=== PATIENT | male | born 1955 | race Caucasian/White ===

== ENCOUNTER 2024-02-02 10:07 | Outpatient (AMB) | payer MEDICARE, BC, SELFPAY ==
--- NOTE | 2024-02-02 10:27 | HO.NEPHOV_ITS ---
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 Required: No Accompanied by: Self / Same As Patient Allergies aloe vera [From Solarcaine Cool Aloe] Allergy (Verified 02/02/24 10:10) Unknown benzocaine Allergy (Verified 02/02/24 10:10) Swelling etodolac Allergy (Verified 02/02/24 10:10) Itching iodine Allergy (Verified 02/02/24 10:10) Hives lidocaine [From Solarcaine Cool Aloe] Allergy (Verified 02/02/24 10:10) Unknown magnesium Allergy (Verified 02/02/24 10:10) Unknown semaglutide Allergy (Verified 02/02/24 10:10) Unknown aminobenzoate Allergy (Uncoded 02/02/24 10:10) Unknown HPI Comments Details: I had the privilege of seeing Yazan in follow-up of his chronic kidney disease and hypertension. He is a diabetic and his blood sugar control is fair. He has been on Jardiance which he is tolerating well. He had taken hydrochlorothiazide in the past which he has stopped due to intermittent leg cramps and tiredness. He has cut back sodium in the diet and is trying to lose some weight. He had no relapse of renal stone disease, doing pain or hematuria. His mother had ESRD and was on dialysis. He has no chest pain, shortness of breath, proximal nocturnal dyspnea, orthopnea, orthostatic symptoms, joint swellings, sinusitis, epistaxis, hematuria. He does not take any nonsteroidal anti-inflammatory medications and maintains good hydration. He had depression and was getting therapy. His serum creatinine has gone up. [facility] Medical History (Updated 02/02/24 @ 10:53 by Preston San MD) Renal stone Essential (primary) hypertension CKD stage 3a, GFR 45-59 ml/min Surgical History (Updated 02/02/24 @ 10:33 by Mahnaz Nava MA) Status post surgical removal of malignant neoplasm of skin History of cholecystectomy History of left knee replacement Family History (Updated 02/02/24 @ 10:34 by Mahnaz Nava MA) Sister Heart disease Sister Hypertension Mother Diabetes Kidney disease Social History Alcohol intake: current Comment: Rare Patient Tobacco Use Status: Never used Tobacco Physical Exam Const General: comfortable and no acute distress Orientation/consciousness: patient oriented x3 HEENT Head: Yes normocephalic Mouth: Normal oral and palatal mucosa present Eyes EOM: EOMs intact bilaterally Neck Neck: Yes supple Resp Auscultation: clear to auscultation bilaterally Cardio Jugular venous distension: no JVD Rate: regular rate GI Palpation (GI): Soft to palpation Auscultation: normal bowel sounds General: Yes no CVA tenderness Back/Spine/Pelvis Back: no CVA tenderness Skin General skin exam: no rashes or lesions noted Neuro General: patient oriented x3 and moves all extremities Extrem General: Yes no pedal edema Results Reviewed Nephrology Results: No Data to Display Assessment & Plan Assessment & Plan (1) CKD stage 3a, GFR 45-59 ml/min: Code(s): N18.31 - Chronic kidney disease, stage 3a Category: Medical (2) Hypertension: Code(s): I10 - Essential (primary) hypertension Qualifiers: Hypertension type: primary hypertension Qualified Code(s): I10 - E ssential (primary) hypertension (3) Renal calculus: Code(s): N20.0 - Calculus of kidney Category: Medical (4) JACINDA (acute kidney injury): Code(s): N17.9 - Acute kidney failure, unspecified Category: Medical Plan Yazan has CKD. His renal functions are marginally worse . Her JACINDA is likely from tubular injury after ARB while being on Jardaince. I held his Olmesartan for now which I plan to re initiate with time. He is trying to lose the weight and be strict with low-sodium diet .He had no relapse of renal stone disease. His mother had ESRD and was on dialysis. He avoids nonsteroidal anti-inflammatories and maintain good hydration. He will benefit from some weight loss. He is on Jardiance. He is tolerating statins . I did not make any other medication changes today. However follow-up blood work was ordered in 3 months. Appointment given & answered all questions. Orders: Orders Creatinine Today N17.9 - Acute kidney failure, unspecified, N18.31 - Chronic kidney disease, stage 3a, N20.0 - Calculus of kidney Blood Urea Nitrogen Today N17.9 - Acute kidney failure, unspecified, N18.31 - Chronic kidney disease, stage 3a, N20.0 - Calculus of kidney Electrolytes Today N17.9 - Acute kidney failure, unspecified, N18.31 - Chronic kidney disease, stage 3a, N20.0 - Calculus of kidney Coding Level of Care Code Est Pt Level 4 (34319) Diagnoses CKD stage 3a, GFR 45-59 ml/min N18.31 Primary hypertension I10 Hypertension type: primary hypertension Renal calculus N20.0 JACINDA (acute kidney injury) N17.9
[2024-02-02 10:29] VITALS: BP 110/62; PULSE 54; O2SAT 95; BMI 45.1
== END 2024-02-02 10:56 | disposition home or self-care (01) ==
PROVIDERS: Visit Provider Internal Medicine Nephrology
DX: N18.31 Chronic kidney disease, stage 3a (principal); I10 Essential (primary) hypertension; N20.0 Calculus of kidney; N17.9 Acute kidney failure, unspecified
CPT/HCPCS: 99214

== ENCOUNTER → 2024-02-02 10:07 | Outpatient (BNVA) | payer MEDICARE, BC, SELFPAY | PROVIDERS: Visit Provider Internal Medicine Nephrology | DX: N17.9 Acute kidney failure, unspecified (principal); I12.9 Hypertensive chronic kidney disease with stage 1 through stage 4 chronic kidney disease, or unspecified chronic kidney disease; E11.22 Type 2 diabetes mellitus with diabetic chronic kidney disease; N18.31 Chronic kidney disease, stage 3a; Z87.442 Personal history of urinary calculi | CPT/HCPCS: 99212 ==

== ENCOUNTER 2024-05-03 11:15 | Outpatient (AMB) | payer MEDICARE, BC, SELFPAY ==
[2024-05-03 11:25] VITALS: BP 112/70; PULSE 57; O2SAT 96; BMI 42.3
--- NOTE | 2024-05-03 11:25 | HO.NEPHOV_ITS ---
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 Required: No Accompanied by: Self / Same As Patient Allergies aloe vera [From Solarcaine Cool Aloe] Allergy (Verified 02/02/24 10:10) Unknown benzocaine Allergy (Verified 02/02/24 10:10) Swelling etodolac Allergy (Verified 02/02/24 10:10) Itching iodine Allergy (Verified 02/02/24 10:10) Hives lidocaine [From Solarcaine Cool Aloe] Allergy (Verified 02/02/24 10:10) Unknown magnesium Allergy (Verified 02/02/24 10:10) Unknown semaglutide Allergy (Verified 02/02/24 10:10) Unknown aminobenzoate Allergy (Uncoded 02/02/24 10:10) Unknown HPI Comments Details: I had the privilege of seeing Yazan in follow-up of his chronic kidney disease and hypertension. He is a diabetic and his blood sugar control is fair. He has been on Jardiance which he is tolerating well. He has cut back sodium in the diet and is trying to lose some weight. He had no relapse of renal stone disease, doing pain or hematuria. His mother had ESRD and was on dialysis. He has no chest pain, shortness of breath, proximal nocturnal dyspnea, orthopnea, orthostatic symptoms, joint swellings, sinusitis, epistaxis, hematuria. He does not take any nonsteroidal anti-inflammatory medications and maintains good hydration.His serum creatinine has gone up to 2. He is having sinusitis and is on antibiotics. [facility] Medical History (Updated 02/02/24 @ 10:53 by Preston San MD) Renal stone Essential (primary) hypertension CKD stage 3a, GFR 45-59 ml/min Surgical History Status post surgical removal of malignant neoplasm of skin History of cholecystectomy History of left knee replacement Family History Sister Heart disease Sister Hypertension Mother Diabetes Kidney disease Social History Alcohol intake: current Comment: Rare Patient Tobacco Use Status: Never used Tobacco Review of Systems Const All systems reviewed & are unremarkable except as noted in HPI and below Physical Exam Vital Signs: Last Vital Signs Pulse 57 05/03/24 11:25 BP 112/70 05/03/24 11:25 Pulse Ox 96 05/03/24 11:25 Oxygen Delivery Method Room Air 05/03/24 11:25 BMI result Body Mass Index 42.3 Const General: comfortable and no acute distress Orientation/consciousness: patient oriented x3 HEENT Head: Yes normocephalic Mouth: Normal oral and palatal mucosa present Eyes EOM: EOMs intact bilaterally Neck Neck: Yes supple Resp Auscultation: clear to auscultation bilaterally Cardio Jugular venous distension: no JVD Rate: regular rate GI Palpation (GI): Soft to palpation Auscultation: normal bowel sounds General: Yes no CVA tenderness Back/Spine/Pelvis Back: no CVA tenderness Skin General skin exam: no rashes or lesions noted Neuro General: patient oriented x3 and moves all extremities Extrem General: Yes no pedal edema Results Reviewed Nephrology Results: No Data to Display Assessment & Plan Assessment & Plan (1) CKD stage 3a, GFR 45-59 ml/min: Code(s): N18.31 - Chronic kidney disease, stage 3a Category: Medical (2) Renal stone: Code(s): N20.0 - Calculus of kidney Category: Medical Plan Yazan has CKD. His last serum creatinine is 2.0 . His Olmesartan is on hold for now given rise in creatinine which I plan to re initiate with time. He is trying to lose the weight and be strict with low-sodium diet .He had no relapse of renal stone disease. His mother had ESRD and was on dialysis. He avoids nonsteroidal anti-inflammatories and maintain good hydration. He will benefit from some weight loss. He is tolerating statins . I did not make any other medication changes today. However follow-up blood work was ordered in 4 months. Appointment given & answered all questions Orders: Orders Blood Urea Nitrogen Today N18.31 - Chronic kidney disease, stage 3a, N20.0 - Calculus of kidney Electrolytes Today N18.31 - Chronic kidney disease, stage 3a, N20.0 - Calculus of kidney Creatinine Today N18.31 - Chronic kidney disease, stage 3a, N20.0 - Calculus of kidney Coding Level of Care Code Est Pt Level 4 (79217) Diagnoses CKD stage 3a, GFR 45-59 ml/min N18.31 Renal stone N20.0
== END 2024-05-03 11:47 | disposition home or self-care (01) ==
PROVIDERS: Visit Provider Internal Medicine Nephrology
DX: N18.31 Chronic kidney disease, stage 3a (principal); N20.0 Calculus of kidney
CPT/HCPCS: 99214

== ENCOUNTER → 2024-05-03 11:15 | Outpatient (BNVA) | payer MEDICARE, BC, SELFPAY | PROVIDERS: Visit Provider Internal Medicine Nephrology | DX: I12.9 Hypertensive chronic kidney disease with stage 1 through stage 4 chronic kidney disease, or unspecified chronic kidney disease (principal); E11.22 Type 2 diabetes mellitus with diabetic chronic kidney disease; N18.31 Chronic kidney disease, stage 3a; N20.0 Calculus of kidney; Z79.2 Long term (current) use of antibiotics | CPT/HCPCS: 99212 ==

== ENCOUNTER 2024-09-01 09:25 | Outpatient (AMB) | payer MEDICARE, SELFPAY ==
--- NOTE | 2024-09-01 09:30 | HO.NEPHOV_ITS ---
Vital Signs 09/01/24 09:34 Height 5 ft 7 in Weight 278 lb 2 oz BMI 43.6 BP 110/60 Blood Pressure Location Lt brachial Position Sitting Pulse 60 Pulse Source Pulse Oximeter Pulse Oximetry (%) 95 Oxygen Delivery Method Room Air Intake Visit Reasons: CKD stage 3a-Conf Events Director Required: No Accompanied by: Self / Same As Patient Allergies aloe vera [From Solarcaine Cool Aloe] Allergy (Verified 09/01/24 09:34) Unknown benzocaine Allergy (Verified 09/01/24 09:34) Swelling etodolac Allergy (Verified 09/01/24 09:34) Itching iodine Allergy (Verified 09/01/24 09:34) Hives lidocaine [From Solarcaine Cool Aloe] Allergy (Verified 09/01/24:34) Unknown magnesium Allergy (Verified 09/01/24:34) Unknown semaglutide Allergy (Verified 09/01/24 09:34) Unknown aminobenzoate Allergy (Uncoded 02/02/24 10:10) Unknown HPI Comments Details: Yazan in follow-up of his chronic kidney disease and hypertension. He is a diabetic and his blood sugar control is fair. He has been on Jardiance which he is tolerating well. He has cut back sodium in the diet and is trying to lose some weight. He had no relapse of renal stone disease, doing pain or hematuria. His mother had ESRD and was on dialysis. He has no chest pain, shortness of breath, proximal nocturnal dyspnea, orthopnea, orthostatic symptoms, joint swellings, sinusitis, epistaxis, hematuria. He does not take any nonsteroidal anti-inflammatory medications and maintains good hydration.His serum creatinine is back to baseline. He recently had a fall and had a pneumothorax needing chest tube. His depression is better. Otherwise he feels well [facility], [facility] Medical History (Updated 02/02/24 @ 10:53 by Preston San MD) Renal stone Essential (primary) hypertension CKD stage 3a, GFR 45-59 ml/min Surgical History Status post surgical removal of malignant neoplasm of skin History of cholecystectomy History of left knee replacement Family History Sister Heart disease Sister Hypertension Mother Diabetes Kidney disease Social History Alcohol intake: current Comment: Rare Patient Tobacco Use Status: Never used Tobacco Review of Systems Const All systems reviewed & are unremarkable except as noted in HPI and below Physical Exam Vital Signs: Last Vital Signs Pulse 60 09/01/24 09:34 BP 110/60 09/01/24 09:34 Pulse Ox 95 09/01/24 09:34 Oxygen Delivery Method Room Air 09/01/24 09:34 BMI result Body Mass Index 43.6 Const General: comfortable and no acute distress Orientation/consciousness: patient oriented x3 HEENT Head: Yes normocephalic Mouth: Normal oral and palatal mucosa present Eyes EOM: EOMs intact bilaterally Neck Neck: Yes supple Resp Auscultation: clear to auscultation bilaterally Cardio Jugular venous distension: no JVD Rate: regular rate GI Palpation (GI): Soft to palpation Auscultation: normal bowel sounds General: Yes no CVA tenderness Back/Spine/Pelvis Back: no CVA tenderness Skin General skin exam: no rashes or lesions noted Neuro General: patient oriented x3 and moves all extremities Extrem General: Yes no pedal edema Results Reviewed Nephrology Results: No Data to Display Assessment & Plan Assessment & Plan (1) CKD stage 3a, GFR 45-59 ml/min: Code(s): N18.31 - Chronic kidney disease, stage 3a Category: Medical (2) Renal stone: Code(s): N20.0 - Calculus of kidney Category: Medical Plan Yazan has CKD. His last serum creatinine is back to baseline . His Olmesartan had been on hold which I plan to restart 5 mg daily @ next visit. He is trying to lose the weight and be strict with low-sodium diet .He had no relapse of renal stone disease. His mother had ESRD and was on dialysis. He avoids nonsteroidal anti-inflammatories and maintain good hydration. He will benefit from some weight loss. He is tolerating statins and Jardiance . I did not make any other medication changes today. However follow-up blood work was ordered .Answered all questions Orders: Orders Electrolytes 4 Months N18.31 - Chronic kidney disease, stage 3a, N20.0 - Calculus of kidney Creatinine 4 Months N18.31 - Chronic kidney disease, stage 3a, N20.0 - Calculus of kidney Blood Urea Nitrogen 4 Months N18.31 - Chronic kidney disease, stage 3a, N20.0 - Calculus of kidney Uric Acid 4 Months N20.0 - Calculus of kidney Coding Level of Care Code Est Pt Level 4 (59476) Diagnoses CKD stage 3a, GFR 45-59 ml/min N18.31 Renal stone N20.0
[2024-09-01 09:34] VITALS: BP 110/60; PULSE 60; O2SAT 95; BMI 43.6
--- OUTSIDE RECORDS SUMMARY | 2024-09-07 00:52 | XMS_ITS ---
Author Name Irene Cates DPM Address [address] [place] [address] Phone Organization [facility] 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 Name Role Phone Eugenio Suárez Primary Care Physician [phone] Eugenio Suárez Unavailable Irene Cates DPM Attending Physician [phone] Insurance Insurance Plan Name Insurance ID Group # Subscriber Name Relation Start and End Dates Insurance Type MEDICARE PART B [id number] NONE OSKAR BARRERA Self - Medicare Part B [facility] [id number] OSKAR BARRERA Self - Commerci al Social History Social History Observation Description SNOMED Code Qualifiers Comments Date Reported Category Start Date End Date Never smoker [id number] 4 Smoking Status - - Problems Condition Effective Dates Condition Status Problem Name SNOMED Code ICD9/10 Code PLANTAR FLEXED METATARSALS 01/26/2013 Active 736.73 PERIOSTITIS ANKLE/FOOT 01/26/2013 Active 730.37 Type 2 diabetes mellitus without complications 02/10/2024 Active E11.9 Tinea unguium, onychomycosis 02/10/2024 Active B35.1 Medications RxNorm Code Drug Name Route Dose Frequency Date Status Generic Name NDC Code Verified on Metoprolo l Unspecifie d 0 Capsule 2023 Active [id number] 679 8:44:42 AM Allopurin ol Unspecifie d 0 2023 Active [id number] 746 4 8:44:42 AM 957602 Escitalop laura 10mg Tablet Oral 0 Tablet Take 1 Tablet by mouth daily 2023 Active Escitalopra m [id number] 001 4 8:44:42 AM Jardiance 25mg Tablet Oral 0 Tablet Take 1 Tablet by mouth once daily in the morning 2023 Active 68354363 337 4 8:44:42 AM 0552576 TRESIBA 100unit/m L Solution for Injection Subcutaneo us 0 Millilit er Injectio n 2023 Active Insulin Degludec [id number] 211 4 8:44:42 AM 781666 Olmesarta n Medoxomil 5mg Tablet Oral 0 Tablet Take 1 Tablet by mouth once daily 2023 Active 76156383 030 4 8:44:42 AM Allergies, adverse reactions, alerts Medication/Agent Allergy Reaction Concern Status Date Recorded RxNorm Code Severity SNOMED Code Occur Date Iodine 01/26/2013 1:08:59 PM 5933 IVP Dye 01/26/2013 1:09:03 PM Lodine 01/26/2013 1:09:08 PM para-aminobezoic acid (PABA) 01/26/2013 1:09:14 PM Hair dye 01/26/2013 1:09:34 PM OTHER 01/26/2013 1:09:42 PM Betadine 02/10/2024 9:42:01 AM Vital Signs Vital Name (Units) 08/17/2024 Time Loinc 02/10/2024 Time Loinc 01/26/2013 Time Lo inc Height/Length ([cm]) 170.18 10:42 8302-2 170.18 09:31 8302-2 172.72 13:11 8302-2 Weight (kg) 120.2 10:42 07419-2 127.01 09:31 56450-2 88.05 13:11 294 63-7 Blood Pressure-Diastol ic (mm[Hg] - - - Blood Pressure-Systoli c (mm[Hg]) - - - O2 % BldC Oximetry (%) - - - Body Temperature (Ritu) - - - Heart Rate (/min) - - - Respiration Rate (/min) - - - Inhaled Oxygen Concentration (%) - - - Body Mass Index (kg/m2) 41.5 10:42 06759-9 43.8 09:31 72152-0 29.5 13:11 48012-8 Body Surface Area (m2) 2 10:42 3140-1 2 09:31 3140-1 2 13:11 3140-1 Height/Length ([in_us]) 67 10:42 8302-2 67 09:31 8302-2 68 13:11 8302-2 Weight ([lb_av]) 265 10:42 79942-2 280 09:31 87718-2 194 13:11 27885-3 Body Temperature ([degF]) - - - BMI Percentile (%) - - - Weight for Length Percentile (%) - - - Head Occipital frontal Circumference Percentile (%) - - - Procedures Procedure Name CPT Code SNOMED Code Diagnosis Provider Ser vice Date Status OFFICE INITIAL VISIT 20 MINUTES 51980 PLANTAR FLEXED METATARSALS Alexis Putnam DPM 01/26/2013 OFFICE INITIAL VISIT 20 MINUTES 06309 PERIOSTITIS ANKLE/FOOT Alexis Putnam DPM 01/26/2013 INITIAL OFFICE VISIT Level 3 94513 Tinea unguium, onychomycosis Irene Cates DPM 02/10/2024 INITIAL OFFICE VISIT Level 3 12680 Type 2 diabetes mellitus without complications Irene Cates DPM 02/10/2024 ESTABLISHED OFFICE VISIT Level 3 75245 Tinea unguium, onychomycosis Irene Cates DPM 08/17/2024 Instructions No known clinical instructions No known recommended patient decision aids Family History Description SNOMED Code Relation Comments Date Reported Oc cur Date .Circulatory Problems ..Mother 08/17/20 24 .Diabetes ..Mother 08/17/2024 .Heart Disease Sister 08/17/2024 History of encounters Condition Effective Dates Condition Status Problem Type SNOM ED Code ICD9/10 Code 08/17/2024 Active B35.1
--- OUTSIDE RECORDS SUMMARY | 2024-09-07 00:52 | XMS_ITS ---
Author Name [facility] Organization Unknown Results Test Name/Text Value Interpretation Date Range Source Glucose Bld-mCnc 158mg/dL Normal [id number] 70 - 199 [facility] Glucose Bld-mCnc 135mg/dL Normal [id number] 70 - 199 [facility] Glucose Bld-mCnc 167mg/dL Normal [id number] 70 - 199 [facility] Glucose Bld-mCnc 149mg/dL Normal [id number] 70 - 199 [facility] Glucose Bld-mCnc 157mg/dL Normal [id number] 70 - 199 [facility] Glucose Bld-mCnc 133mg/dL Normal [id number] 70 - 199 [facility] Calcium SerPl-mCnc 9.1mg/dL Normal [id number] 8.4 - 10 .2 [facility] BUN SerPl-mCnc 31mg/dL Above high normal [id number] 9 - 20 [facility] Creat SerPl-mCnc 1.6mg/dL Above high normal [id number] 0. 7 - 1.3 [facility] Chloride SerPl-sCnc 103mmol/L Normal [id number] 98 - 107 [facility] BUN/Creat SerPl 19.4 Normal [id number] 12 - 20 [facility] CO2 SerPl-sCnc 26mmol/L Normal [id number] 24 - 32 [facility] eGFRcr SerPlBld CKD-EPI 2020 46mL/min/1.73m2 Below low normal [id number] - [facility] Potassium SerPl-sCnc 4mmol/L Normal [id number] 3.5 - 5.1 [facility] Sodium SerPl-sCnc 136mmol/L Normal [id number] 135 - 145 [facility] Anion Gap SerPl-sCnc 7 Normal [id number] 5 - 14 [facility] Glucose SerPl-mCnc 127mg/dL Normal [id number] 70 - 199 [facility] Glucose Bld-mCnc 150mg/dL Normal [id number] 70 - 199 [facility] Glucose Bld-mCnc 129mg/dL Normal [id number] 70 - 199 [facility] Glucose Bld-mCnc 145mg/dL Normal [id number] 70 - 199 [facility] Glucose Bld-mCnc 135mg/dL Normal [id number] 70 - 199 [facility] Magnesium SerPl-mCnc 2.3mg/dL Normal [id number] 1.7 - 2.8 [facility] Phosphate SerPl-mCnc 3.3mg/dL Normal 2.5 - 4.5 [facility] Calcium SerPl-mCnc 9.4mg/dL Normal [id number] 8.4 - 10 .2 [facility] BUN SerPl-mCnc 33mg/dL Above high normal [id number] 9 - 20 [facility] Creat SerPl-mCnc 1.4mg/dL Above high normal [id number] 0. 7 - 1.3 [facility] Chloride SerPl-sCnc 103mmol/L Normal [id number] 98 - 107 [facility] BUN/Creat SerPl 23.6 Above high normal [id number] 12 - 20 [facility] CO2 SerPl-sCnc 28mmol/L Normal [id number] 24 - 32 [facility] eGFRcr SerPlBld CKD-EPI 2020 54mL/min/1.73m2 Below low normal [id number] - [facility] Potassium SerPl-sCnc 3.4mmol/L Below low normal [id number] 3.5 - 5.1 [facility] Sodium SerPl-sCnc 138mmol/L Normal [id number] 135 - 145 [facility] Anion Gap SerPl-sCnc 7 Normal [id number] 5 - 14 [facility] Glucose SerPl-mCnc 102mg/dL Normal [id number] 70 - 199 [facility] Monocytes # Bld Auto 0.6K/mcL Normal [id number] 0 - 0.8 [facility] Neutrophils # Bld Auto 6.8K/mcL Normal [id number] 1.8 - 7.8 [facility] Eosinophil # Bld Auto 0.2K/mcL Normal [id number] 0 - 0.5 [facility] MCHC RBC Auto-mCnc 33.7g/dL Normal [id number] 32 - 36 [facility] Monocytes/leuk NFr Bld Auto 6.6% Normal [id number] 2 - 12 [facility] Basophils # Bld Auto 0.1K/mcL Normal [id number] 0 - 0.2 [facility] WBC # Bld Auto 9.7K/mcL Normal [id number] 4 - 10.5 CT [facility] Hct VFr Bld Auto 37.8% Below low normal [id number] 40 - 54 [facility] RDW RBC Auto-Rto 16.5% Normal [id number] 12.1 - 17.7 [facility] PMV Bld Auto 8.5FL Normal [id number] 7.4 - 11.4 [facility] Eosinophil/leuk NFr Bld Auto 2.3% Normal [id number] 0 - 6 [facility] MCH RBC Qn Auto 31.6pcg Normal [id number] 25 - 33 [facility] Basophils/leuk NFr Bld Auto 0.5% Normal [id number] 0 - 2 [facility] Lymphocytes # Bld Auto 1.9K/mcL Normal [id number] 1 - 3.2 [facility] RBC # Bld Auto 4.03M/mcL Below low normal [id number] 4.7 - 6 [facility] Neutrophils/leuk NFr Bld Auto 70.6% Normal [id number] 44 - 74 [facility] Platelet # Bld Auto 144K/mcL Below low normal [id number] 150 - 450 [facility] MCV RBC Auto 93.8FL Normal [id number] 78 - 100 [facility] Lymphocytes/leuk NFr Bld Auto 20% Normal 20 - 48 [facility] Hgb Bld-mCnc 12.8g/dL Below low normal 13.5 - 18 [facility] Glucose Bld-mCnc 151mg/dL Normal 70 - 199 [facility] ABO Group Bld O Normal [facility] Rh Bld Positive Normal [facility] Bld gp Ab Scn SerPl Ql Negative Normal [facility] AST SerPl-cCnc 65unit/L Above high normal 5 - 40 [facility] ALT SerPl-cCnc 33unit/L Normal 7 - 52 [facility] Creat SerPl-mCnc 1.8mg/dL Above high normal 0. 7 - 1.3 [facility] CO2 SerPl-sCnc 25mmol/L Normal 24 - 32 [facility] eGFRcr SerPlBld CKD-EPI 2020 40mL/min/1.73m2 Below low normal - [facility] Potassium SerPl-sCnc 4.9mmol/L Normal 3.5 - 5.1 [facility] Bilirub SerPl-mCnc 0.9mg/dL Normal 0.3 - 1 [facility] Calcium SerPl-mCnc 9.6mg/dL Normal 8.4 - 10 .2 [facility] BUN SerPl-mCnc 39mg/dL Above high normal 9 - 20 [facility] ALP SerPl-cCnc 124unit/L Above high normal 34 - 104 [facility] Chloride SerPl-sCnc 101mmol/L Normal 98 - 107 [facility] BUN/Creat SerPl 21.7 Above high normal 12 - 20 [facility] Albumin SerPl-mCnc 4.1g/dL Normal 3.5 - 5 [facility] Prot SerPl-mCnc 8.4g/dL Normal 6.4 - 8.5 [facility] Sodium SerPl-sCnc 136mmol/L Normal 135 - 145 [facility] Anion Gap SerPl-sCnc 10 Normal 5 - 14 [facility] Glucose SerPl-mCnc 125mg/dL Normal 70 - 199 [facility] INR PPP 1 Normal 0.8 - 1.1 [facility] PT Bld 11.8sec Normal 10.5 - 13.3 [facility] aPTT PPP 32.5sec Normal 25 - 37 [facility] Monocytes # Bld Auto 0.5K/mcL Normal 0 - 0.8 [facility] Neutrophils # Bld Auto 6.2K/mcL Normal 1.8 - 7.8 [facility] Eosinophil # Bld Auto 0.1K/mcL Normal 0 - 0.5 [facility] MCHC RBC Auto-mCnc 33.9g/dL Normal 32 - 36 [facility] Monocytes/leuk NFr Bld Auto 5.9% Normal 2 - 12 [facility] Basophils # Bld Auto 0.1K/mcL Normal 0 - 0.2 [facility] WBC # Bld Auto 8.2K/mcL Normal 4 - 10.5 CT [facility] Hct VFr Bld Auto 40.5% Normal 40 - 54 [facility] RDW RBC Auto-Rto 16.3% Normal 12.1 - 17.7 [facility] PMV Bld Auto 8.8FL Normal 7.4 - 11.4 [facility] Eosinophil/leuk NFr Bld Auto 1.8% Normal 0 - 6 [facility] MCH RBC Qn Auto 31.9pcg Normal 25 - 33 [facility] Basophils/leuk NFr Bld Auto 0.8% Normal 0 - 2 [facility] Lymphocytes # Bld Auto 1.3K/mcL Normal 1 - 3.2 [facility] RBC # Bld Auto 4.3M/mcL Below low normal 4.7 - 6 [facility] Neutrophils/leuk NFr Bld Auto 75.5% Above high normal 44 - 74 [facility] Platelet # Bld Auto 148K/mcL Below low normal 150 - 450 [facility] MCV RBC Auto 94FL Normal 78 - 100 [facility] Lymphocytes/leuk NFr Bld Auto 16% Below low normal 20 - 48 [facility] Hgb Bld-mCnc 13.7g/dL Normal 13.5 - 18 [facility] LACTIC ACID 1.8mmol/L Normal 0.5 - 2.2 [facility] GLUCOSE BLDC GLUCOMTR MCNC 118mg/dL Normal [id number] 70 - 199 [facility] POLYS NFR SNV MANUAL 0% Normal [id number] [facility] MONONUC CELLS NFR SNV MANUAL 61% Normal [id number] [facility] UNIDENT CELLS NFR SNV 0/100WBC Normal [id number] [facility] SYNOVIOCYTES NFR SNV 5/100WBC Normal [id number] [facility] RBC NO. SNV MANUAL 5788/UL Normal [id number] [facility] CRYSTALS SNV MICRO NO CRYSTALS SEEN Normal [id number] [facility] SPECIMEN SOURCE FLD LEFT KNEE Normal [id number] [facility] CRP SERPL MCNC 1.3mg/dL Above high normal [id number] - 0. 9 [facility] ESR Bld Qn Photometric 33mm/h Above high normal [id number] 0 - 15 [facility] DIFFERENTIAL TYPE AUTOMATED Normal [id number] [facility] NEUTROPHILS NFR BLD AUTO 69.1% Normal [id number] 44 - 74 [facility] BASOPHILS NFR BLD AUTO 0.8% Normal [id number] 0 - 2 [facility] MONOCYTES NFR BLD AUTO 5.5% Normal [id number] 2 - 12 [facility] HCT VFR BLD AUTO 37.2% Below low normal [id number] 40 - 54 [facility] MONOCYTES NO. BLD AUTO 0.5K/uL Normal [id number] 0 - 0.8 [facility] RDW RBC AUTO RTO 16.1% Normal [id number] 12.1 - 17.7 [facility] PLATELET NO. BLD AUTO 141K/uL Below low normal [id number] 150 - 450 [facility] EOSINOPHIL NO. BLD AUTO 0.2K/uL Normal [id number] 0 - 0.5 [facility] RBC NO. BLD AUTO 3.81M/uL Below low normal [id number] 4.7 - 6 [facility] MCH RBC QN AUTO 33.1pg Above high normal [id number] 25 - 33 [facility] MCHC RBC AUTO MCNC 33.9g/dL Normal [id number] 32 - 36 [facility] HGB BLD MCNC 12.6g/dL Below low normal [id number] 13.5 - 18 [facility] BASOPHILS IN BLOOD BY AUTOMATED COUNT 0.1K/uL Normal [id number] 0 - 0.2 [facility] WBC NO. BLD AUTO 8.3K/uL Normal [id number] 4 - 10.5 [facility] EOSINOPHIL NFR BLD AUTO 2.9% Normal [id number] 0 - 6 [facility] LYMPHOCYTES NFR BLD AUTO 21.7% Normal [id number] 20 - 48 [facility] MCV RBC AUTO 97.8fL Normal [id number] 78 - 100 [facility] NEUTROPHILS NO. BLD AUTO 5.8K/uL Normal [id number] 1.8 - 7.8 [facility] LYMPHOCYTES NO. BLD AUTO 1.8K/uL Normal [id number] 1 - 3.2 [facility] PMV BLD AUTO 8.9fL Normal [id number] 7.4 - 11.4 [facility] History of Medication Use Medication Directions Dispensed Refills Start Date End Date Stat insulin regular (HumuLIN R) injection 2-12 Units 2-12 Units, subcutaneous, Nightly, First dose on 08/06/24 at 2352, Indication: Total Daily Dose (TDD) 40 - 80 units 08/11/2024 active enoxaparin (LOVENOX) injection 30 mg 30 mg, subcutaneous, Every 12 hours, First dose (after last modification) on 08/07/24 at 0900, Indication: VTE/PE Prophylaxis 08/11/2024 active oxyCODONE (ROXICODONE) 5 mg immediate release tablet Take 1 tablet (5 mg total) by mouth every 4 (four) hours if needed for moderate pain for up to 3 days. Max Daily Amount: 30 mg 08/11/2024 active docusate sodium (COLACE) capsule 100 mg 100 mg, oral, Every 12 hours PRN, constipation, Starting on 08/06/24 at 2328 08/11/2024 active ondansetron (PF) (ZOFRAN) injection 4 mg 4 mg, intravenous, Once, On 08/06/24 at 1646, For 1 dose 08/11/2024 9 completed metoprolol tartrate (LOPRESSOR) 50 mg tablet TAKE 1 TABLET BY MOUTH TWICE A DAY 08/11/2024 active escitalopram (LEXAPRO) 10 mg tablet TAKE 1 TABLET BY MOUTH EVERY DAY 08/11/2024 active dextrose 15 gram/60 mL oral solution 15 g 15 g, oral, Every 15 min PRN, low blood sugar, hypoglycemia *Patient conscious AND able to drink and swallow safely*, Starting on 08/06/24 at 2319 08/11/2024 active atorvastatin (LIPITOR) 10 mg tablet Take 1 tablet (10 mg total) by mouth daily. 08/11/2024 active olmesartan (BENICAR) 5 mg tablet TAKE 1 TABLET (5 MG TOTAL) BY MOUTH DAILY. 08/11/2024 active Glucagon HCl (rDNA) injection 1 mg 1 mg, intramuscular, Once as needed, low blood sugar, severe hypoglycemia, Starting on 08/06/24 at 2319, For 1 dose 08/11/2024 active morphine injection 4 mg 4 mg, intravenous, Once, On Thu08/06/24 at 1646, For 1 dose 08/11/2024 completed dextrose (D50W) 50% injection 25 g 25 g, intravenous, Every 15 min PRN, low blood sugar, severe hypoglycemia *Patient is Unconscious, NPO, unable to swallow: BG LESS than 54 mg/dL*, Starting on 08/06/24 at 2319 08/11/2024 9 active oxyCODONE (ROXICODONE) immediate release tablet 5 mg [Order 1 Start] Name: oxyCODONE (ROXICODONE) immediate release tablet 5 mg Signed Summary: 5 mg, oral, Every 4 hours PRN, moderate pain, Starting on 08/08/24 at 0516 [Order 1 End] [Order 2 Start] Name: oxyCODONE (ROXICODONE) immediate release tablet 10 mg Signed Summary: 10 mg, oral, Every 4 michael 08/11/2024 active insulin lispro injection 2-12 Units 2-12 Units, subcutaneous, 3 times daily before meals, First dose (after last reorder) on 08/07/24 at 0730, Indication: Total Daily Dose (TDD) 40 - 80 units. Correction Scale: Moderate Dose Administer with meal and/or mealtime dose of insulin to correct high blood glucose If mealtime insulin dos 08/11/2024 active Jardiance 25 mg tablet Take 25 mg by mouth daily. 08/11/2024 active atorvastatin (LIPITOR) tablet 10 mg 10 mg, oral, Nightly, First dose on 08/06/24 at 2329 08/11/2024 active polyethylene glycol (MIRALAX) 17 gram packet Take 17 g by mouth 1 (one) time each day for 5 days. 08/11/2024 active albuterol 2.5 mg /3 mL (0.083 %) nebulizer solution 2.5 mg 2.5 mg, nebulization, Every 6 hours, First dose on Thu08/06/24 at 2319 08/11/2024 9 active buPROPion (WELLBUTRIN) tablet 300 mg 300 mg, oral, Once, On 08/07/24 at 0700, For 1 dose 08/11/2024 completed methocarbamoL (ROBAXIN) 500 mg tablet Take 1 tablet (500 mg total) by mouth every 8 (eight) hours for 10 days. 08/11/2024 active Tresiba FlexTouch U-200 200 unit/mL (3 mL) CONCENTRATED injection pen Inject 40 Units under the skin 2 (two) times a day after meals. Inject before units every morning and 60 units at night 08/11/2024 active dextrose (D50W) 50% injection 12.5 g 12.5 g, intravenous, Every 15 min PRN, low blood sugar, moderate hypoglycemia *Patient is Unconscious, NPO, unable to swallow: BG 54 - 69 mg/dl*, Starting on 08/06/24 at 2319 08/11/2024 active esomeprazole magnesium 20 mg tablet,delayed release (DR/EC) Take 1 tablet by mouth daily. 08/11/2024 active acetaminophen (TYLENOL) 325 mg tablet Take 650 mg by mouth. 08/11/2024 aborted dextrose 15 gram/60 mL oral solution 30 g 30 g, oral, Every 15 min PRN, low blood sugar, hypoglycemia *Patient conscious AND able to drink and swallow safely*, Starting on 08/06/24 at 2319 08/11/2024 active lidocaine (PF) (XYLOCAINE-MPF) 1 % injection 10 mL 10 mL, infiltration, Once, On 08/06/24 at 1850, For 1 dose 08/11/2024 9 completed allopurinoL (ZYLOPRIM) 300 mg tablet TAKE 1 TABLET BY MOUTH EVERY DAY 08/11/2024 active acetaminophen (TYLENOL) 325 mg tablet Take 2 tablets (650 mg total) by mouth every 8 (eight) hours for 10 days. 08/11/2024 active metoprolol tartrate (LOPRESSOR) tablet 25 mg 25 mg, oral, 2 times daily, First dose (after last reorder) on 08/06/24 at 2341 08/11/2024 9 active oxyCODONE (ROXICODONE) immediate release tablet 10 mg 10 mg, oral, Every 4 hours PRN, severe pain, Starting on 08/06/24 at 2328 08/11/2024 9 aborted potassium chloride (KLOR-CON M20) CR tablet 20 mEq 20 mEq, oral, Once, On 08/07/24 at 0915, For 1 dose, Tablet may be swallowed whole (do not crush/chew/suck on) OR broken in half and each half swallowed separately OR dissolved (whole tablet) in ~4 ounces of water (allow ~2 minutes to dissolve, stir well and administer immediately). 08/11/2024 9 completed OMEGA-3 FATTY ACIDS-FISH OIL ORAL 08/11/2024 09/27/99 9 9 active pantoprazole (PROTONIX) EC tablet 40 mg 40 mg, oral, Daily, First dose on 08/07/24 at 0900, Do not crush, chew, or split. 08/11/2024 9 active cholecalciferol (VITAMIN D-3) 125 mcg (5,000 unit) capsule Take 1 tablet by mouth daily. 08/11/2024 9 active sodium chloride 0.9 % bolus 500 mL 500 mL, intravenous, at 1,000 mL/hr, Administer over 30 Minutes, Once, On 08/06/24 at 1456, For 1 dose 08/11/2024 9 completed olmesartan (BENICAR) tablet 5 mg TAKE 1 TABLET (5 MG TOTAL) BY MOUTH DAILY. 07/02/2024 active allopurinol (ZYLOPRIM) 300 MG tablet TAKE 1 TABLET BY MOUTH EVERY DAY 07/02/2024 active atorvastatin (LIPITOR) tablet 10 mg TAKE 1 TABLET BY MOUTH EVERY DAY 07/02/2024 active metoprolol tartrate (LOPRESSOR) 50 MG tablet TAKE 1 TABLET BY MOUTH TWICE A DAY 07/02/2024 active acetaminophen (TYLENOL) 325 MG tablet Take 2 tablets (650 mg total) by mouth. 07/02/2024 active Sod Picosulfate-Mag Ox-Cit Acd (Clenpiq) 10-3.5-12 MG-GM -GM/160ML SOLN Take 1 Bottle by mouth 2 (two) times a day. 07/02/2024 active glucose blood (ACCU-CHEK KEITH PLUS) test strip Pt to use one strip daily 07/02/2024 active sodium chloride 0.9% (NS) infusion 25 mL/hr, Intravenous, Continuous, Starting on Nava 06/30/24 at 0730, Pre-ProcedureSTAR T AT KVO (25 ML/HR) PRE-PROCEDURE; DURING PROCEDURE INCREASE RATE TO 300 ML/HR UNTIL 500 ML INFUSED. 07/02/2024 active Empagliflozin (Jardiance) 25 MG TABS Take 25 mg by mouth daily. 07/02/2024 active Cholecalciferol (VITAMIN D3) 5000 UNITS CAPS Take 1 capsule (5,000 Units total) by mouth daily. 07/02/2024 active guaiFENesin (MUCINEX) 600 MG 12 hr tablet Take 2 tablets (1,200 mg total) by mouth 2 (two) times a day. Takes 1 tab in AM 07/02/2024 active Basalt-3 Fatty Acids (FISH OIL PO) Take 2 tablets by mouth daily. 07/02/2024 active Esomeprazole Magnesium (NEXIUM 24HR) 20 MG TBEC Take 1 tablet by mouth daily. 07/02/2024 active Insulin Degludec (Tresiba FlexTouch) 200 UNIT/ML SOPN Inject 40 Units under the skin 2 (two) times a day after meals. Inject before units every morning and 60 units at night 07/02/2024 active torsemide (DEMADEX) 20 MG tablet Take 1 tablet (20 mg total) by mouth every other day. 07/02/2024 active buPROPion (WELLBUTRIN XL) 150 MG 24 hr tablet Take 1 tablet (150 mg total) by mouth daily. in the morning 07/02/2024 active escitalopram (LEXAPRO) tablet 10 mg TAKE 1 TABLET BY MOUTH EVERY DAY 07/02/2024 active Sod Picosulfate-Mag Ox-Cit Acd (Clenpiq) 10-3.5-12 MG-GM -GM/160ML SOLN Take 1 Bottle by mouth 2 (two) times a day. 05/15/2024 active torsemide (DEMADEX) 20 MG tablet Take 1 tablet (20 mg total) by mouth daily. 05/15/2024 active Scopolamine (TRANSDERM-SCOP) 1 MG/3DAYS Place 1 patch behind 1 ear 4 hours before departure 05/15/2024 active Allopurinol 02/12/2024 active Olmesartan Medoxomil 5mg Tablet 02/12/2024 active TRESIBA 100unit/mL Solution for Injection 02/12/2024 active Escitalopram 10mg Tablet 02/12/2024 active guaiFENesin (MUCINEX) 600 MG 12 hr tablet Take 2 tablets (1,200 mg total) by mouth 2 (two) times a day. 02/11/2024 active olmesartan (BENICAR) tablet 5 mg TAKE 1 TABLET (5 MG TOTAL) BY MOUTH DAILY. 02/11/2024 active Basalt-3 Fatty Acids (FISH OIL PO) Take 2 tablets by mouth daily. 02/11/2024 active glucose blood (ACCU-CHEK KEITH PLUS) test strip Pt to use one strip daily 02/11/2024 active atorvastatin (LIPITOR) tablet 10 mg TAKE 1 TABLET BY MOUTH EVERY DAY 02/11/2024 active metoprolol tartrate (LOPRESSOR) 50 MG tablet TAKE 1 TABLET BY MOUTH TWICE A DAY 02/11/2024 active Insulin Degludec (Tresiba FlexTouch) 200 UNIT/ML SOPN Inject 40 Units under the skin 2 (two) times a day after meals. Inject before units every morning and 60 units at night 02/11/2024 active Cholecalciferol (VITAMIN D3) 5000 UNITS CAPS Take 1 capsule (5,000 Units total) by mouth daily. 02/11/2024 active escitalopram (LEXAPRO) tablet 10 mg TAKE 1 TABLET BY MOUTH EVERY DAY 02/11/2024 active Empagliflozin (Jardiance) 25 MG TABS Take 25 mg by mouth daily. 02/11/2024 active acetaminophen (TYLENOL) 325 MG tablet Take 2 tablets (650 mg total) by mouth. 02/11/2024 active allopurinol (ZYLOPRIM) 300 MG tablet TAKE 1 TABLET BY MOUTH EVERY DAY 02/11/2024 active Esomeprazole Magnesium (NEXIUM 24HR) 20 MG TBEC Take 1 tablet by mouth daily. 02/11/2024 active Problems Problem Status Onset Date Problem Type Date of Resolution Source Varicosities of leg active 2015-04-30 1 ProblemAct [facility] Closed fracture of one rib of left side active 9 ProblemAct [facility] Gastrointestinal hemorrhage associated with gastrojejunal ulcer active 6 ProblemAct [facility] Lymphedema of right lower extremity active 2017-05-29 2 ProblemAct [facility] Major depressive disorder active 2022-02-26 5 ProblemAct [facility] Basal cell carcinoma of face active 2013-01-26 3 ProblemAct [facility] Adiposity active 2016-04-28 5 ProblemAct [facility] Closed fracture of one rib of left side with routine healing, subsequent encounter active EncounterDiagnosisAct [facility] Spondylosis of cervical region without myelopathy or radiculopathy active 2019-06-29 9 ProblemAct [facility] Type 2 diabetes mellitus without complications active 2024-01-27 5 ProblemAct [facility] Other malaise and fatigue active 2016-08-28 4 ProblemAct [facility] Obstructive sleep apnea active 2024-01-27 0 ProblemAct [facility] History of left knee replacement active 2024-01-27 4 ProblemAct [facility] Arthritis of right knee active 5 ProblemAct [facility] Primary writing tremor active 2024-01-27 0 ProblemAct [facility] CKD stage 3b, GFR 30-44 ml/min active 2024-01-27 0 ProblemAct [facility] Chronic knee pain after total replacement of left knee joint active 5 ProblemAct [facility] Pain due to total left knee replacement active 2024-04-28 5 ProblemAct [facility] Hyperlipidemia active 2015-04-30 1 ProblemAct [facility] Rib pain active 2019-09-29 8 ProblemAct [facility] Disequilibrium syndrome active 8 ProblemAct [facility] Other fatigue active 2021-04-30 0 ProblemAct [facility] Disequilibrium active 2021-01-27 4 ProblemAct [facility] Primary osteoarthritis of left ankle active 2019-09-29 8 ProblemAct [facility] Renal stone active 2016-12-28 4 ProblemAct [facility] Muscle cramps active 2017-03-28 2 ProblemAct [facility] Chronic gout of multiple sites active 2019-09-29 8 ProblemAct [facility] Primary osteoarthritis of left knee active 2 ProblemAct [facility] Onychomycosis due to dermatophyte active 2 ProblemAct [facility] Osteoarthritis of knee active 2016-04-28 5 ProblemAct [facility] Prostatic hyperplasia, benign localized, with obstruction active 2016-12-28 4 ProblemAct [facility] Tinea unguium, onychomycosis active 2024-07-30 0 EncounterDiagnosisAct [facility] Acute non-recurrent maxillary sinusitis active 5 ProblemAct [facility] Tightness in chest active 6 ProblemAct [facility] Uncontrolled type 2 diabetes mellitus with hyperglycemia, with long-term current use of insulin active 9 ProblemAct [facility] Localized swelling of both lower legs active 2024-01-28 2 ProblemAct [facility] Family history of colon cancer in father active 2024-04-28 9 ProblemAct [facility] Chronic fatigue active 9 ProblemAct [facility] Coronary artery disease with cardiac symptoms active 2023-12-29 2 ProblemAct [facility] Family hx of colon cancer active 2024-05-29 3 ProblemAct [facility] History of basal cell carcinoma active 2013-10-30 5 ProblemAct [facility] Esophageal reflux active 2024-05-29 3 ProblemAct [facility] Essential hypertension, benign active 2015-04-30 1 ProblemAct [facility] PERIOSTITIS ANKLE/FOOT active 1 ProblemAct [facility] Photoaged skin active 2014-06-28 6 ProblemAct [facility] Hyperuricemia active 2017-03-28 2 ProblemAct [facility] PLANTAR FLEXED METATARSALS active 1 ProblemAct [facility] Gastroesophageal reflux disease active 2024-04-28 9 ProblemAct [facility] Immunizations Vaccine Date Source Lot Number Status Influenza Quadrivalent, 0.5m l, preservative free (Fluarix; FluLaval; Fluzone) ages 6mo and older (Afluria) 3yo and older 07/26/2019 [id number] completed Influenza Quadravalent, MDCK , 0.5ml, with preservative (Flucelvax) 6mo and older 07/24/2022 [id number] completed Influenza Quadrivalent, with preservative (Fluzone; Afluria) 6mo and older 06/09/2017 [facility] [id number] completed Influenza trivalent, with pr eservative (Fluzone; Afluria) 6mo and older 07/18/2015 [facility] [id number] completed Influenza Quadravalent, 0.5m l (Fluad) 65yo and older 06/23/2023 [facility] [id number] completed Influenza Quadrivalent, with preservative (Fluzone; Afluria) 6mo and older 07/16/2016 [facility] [id number] completed Moderna (ages 6-11 primary) COVID-19, 0.5 mL dosage 07/23/2022 [facility] [id number] completed Influenza Quadrivalent, with preservative (Fluzone; Afluria) 6mo and older 06/23/2023 [facility] [id number] completed Covid-19 (Pfizer 12+) Fall 2022 0.3mL 06/23/2023 [facility] [place] [id number] completed
== END 2024-09-01 09:58 | disposition home or self-care (01) ==
LOC: HO.HKAS 09:25
PROVIDERS: Visit Provider Internal Medicine Nephrology
DX: N18.31 Chronic kidney disease, stage 3a (principal); N20.0 Calculus of kidney
CPT/HCPCS: 99214

== ENCOUNTER → 2024-09-01 09:25 | Outpatient (BNVA) | payer MEDICARE, SELFPAY | PROVIDERS: Visit Provider Internal Medicine Nephrology | DX: I12.9 Hypertensive chronic kidney disease with stage 1 through stage 4 chronic kidney disease, or unspecified chronic kidney disease (principal); N18.31 Chronic kidney disease, stage 3a; N20.0 Calculus of kidney | CPT/HCPCS: 99212 ==

== ENCOUNTER 2025-01-24 11:24 | Outpatient (AMB) | payer MEDICARE, SELFPAY ==
--- NOTE | 2025-01-24 11:53 | HO.NEPHOV_ITS ---
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 Required: No Accompanied by: Self / Same As Patient Allergies aloe vera [From Solarcaine Cool Aloe] Allergy (Verified 01/24/25 11:54) Unknown benzocaine Allergy (Verified 01/24/25 11:54) Swelling etodolac Allergy (Verified 01/24/25 11:54) Itching iodine Allergy (Verified 01/24/25 11:54) Hives lidocaine [From Solarcaine Cool Aloe] Allergy (Verified 01/24/25 11:54) Unknown magnesium Allergy (Verified 01/24/25 11:54) Unknown semaglutide Allergy (Verified 01/24/25 11:54) Unknown aminobenzoate Allergy (Uncoded 02/02/24 10:10) Unknown HPI Comments Details: Yazan was seen in follow-up of his chronic kidney disease and hypertension. He is a diabetic and his blood sugar control is fair. He has been on Jardiance which he is tolerating well. He has cut back sodium in the diet and is trying to lose some weight. He had no relapse of renal stone disease, doing pain or hematuria. His mother had ESRD and was on dialysis. He has no chest pain, shortness of breath, proximal nocturnal dyspnea, orthopnea, orthostatic symptoms, joint swellings, sinusitis, epistaxis, hematuria. He does not take any nonsteroidal anti-inflammatory medications and maintains good hydration.His serum creatinine is back to baseline.His depression is better. Otherwise he feels well [facility] Medical History (Updated 01/24/25 @ 12:07 by Preston San MD) Renal stone Essential (primary) hypertension CKD stage 3a, GFR 45-59 ml/min Surgical History Status post surgical removal of malignant neoplasm of skin History of cholecystectomy History of left knee replacement Family History Sister Heart disease Sister Hypertension Mother Diabetes Kidney disease Social History Alcohol intake: current Comment: Rare Patient Tobacco Use Status: Never used Tobacco Review of Systems Const All systems reviewed & are unremarkable except as noted in HPI and below Physical Exam Vital Signs: Last Vital Signs Pulse 69 01/24/25 11:54 BP 110/70 01/24/25 11:54 Pulse Ox 96 01/24/25 11:54 Oxygen Delivery Method Room Air 01/24/25 11:54 BMI result Body Mass Index 42.2 Const General: comfortable and no acute distress Orientation/consciousness: patient oriented x3 HEENT Head: Yes normocephalic Mouth: Normal oral and palatal mucosa present Eyes EOM: EOMs intact bilaterally Neck Neck: Yes supple Resp Auscultation: clear to auscultation bilaterally Cardio Jugular venous distension: no JVD Rate: regular rate GI Palpation (GI): Soft to palpation Auscultation: normal bowel sounds General: Yes no CVA tenderness Back/Spine/Pelvis Back: no CVA tenderness Skin General skin exam: no rashes or lesions noted Neuro General: patient oriented x3 and moves all extremities Extrem General: Yes no pedal edema Results Reviewed Nephrology Results: No Data to Display Assessment & Plan Assessment & Plan (1) CKD stage 3a, GFR 45-59 ml/min: Code(s): N18.31 - Chronic kidney disease, stage 3a Category: Medical (2) Renal stone: Code(s): N20.0 - Calculus of kidney Category: Medical (3) Hypertension: Code(s): I10 - Essential (primary) hypertension Category: Medical Qualifiers: Hypertension type: primary hypertension Qualified Code(s): I10 - Essential (primary) hypertension Plan Yazan has CKD. His last serum creatinine is back to baseline . His Olmesartan had been on hold which I plan to restart 5 mg daily with time. He is trying to lose the weight and be strict with low-sodium diet .He had no relapse of renal stone disease. His mother had ESRD and was on dialysis. He avoids nonsteroidal anti-inflammatories and maintain good hydration. He will benefit from some weight loss. He is tolerating statins and Jardiance . I did not make any other medication changes today. However follow-up blood work was ordered .Answered all questions Orders: Orders Creatinine 7 Months N18.31 - Chronic kidney disease, stage 3a Blood Urea Nitrogen 7 Months N18.31 - Chronic kidney disease, stage 3a Protein Creatinine Ratio, Ur 7 Months N18.31 - Chronic kidney disease, stage 3a Electrolytes 7 Months N18.31 - Chronic kidney disease, stage 3a Coding Level of Care Code Est Pt Level 4 (96633) Diagnoses CKD stage 3a, GFR 45-59 ml/min N18.31 Renal stone N20.0 Primary hypertension I10 Hypertension type: primary hypertension
[2025-01-24 11:54] VITALS: BP 110/70; PULSE 69; O2SAT 96; BMI 42.2
--- OUTSIDE RECORDS SUMMARY | 2025-01-24 13:32 | XMS_ITS | Encounter Summary ---
Author Organization [facility] Address [address] [place] [id number] Care Team Providers Care Aquatic Performer Name Role Phone Eugenio Suárez MD Primary Care Provider [phone] Encounter Details Date Type Department Care Team (Late st Contact Info) Description 07/20/2014 Scanned Document Dermatologic Surgery [address] [phone] Su Bennett MD Social History Tobacco Use Types Packs/Day Years Used Date Smoking Tobacco: Never Alcohol Use Standard Drinks/Week Comments No 0 (1 standard drink = 0.6 oz pur e alcohol) Sex and Gender Information Value Date Recorded Sex Assigned at Not on file Legal Sex Male 1:40 PM EDT Gender Identity Not on file Sexual Orientation Not on file documented as of this encounter Plan of Treatment Not on file documented as of this encounter Procedures Procedure Name Priority Date/Time Associated Diagnosis Comments PATHOLOGY/CYTOLOGY SCAN Routine 04/11/2014 documented in this encounter Results * Pathology/Cytology Scan (04/11/2014) us Su Bennett MD PATHOLOGY/CYTOLOGY ORDERABLES Final Result documented in this encounter Visit Diagnoses Not on filedocumented in this encounter Care Teams Aquatic Performer Relationship Specialty Start Date End Date Eugenio Suárez MD [address] [phone] PCP - General Internal Medicine 01/13/13 documented as of this encounter
--- OUTSIDE RECORDS SUMMARY | 2025-01-24 13:32 | XMS_ITS | Clinical Summary ---
Author Organization [address] Address [address] [place] [id number] Care Team Providers Care Flame Hardening Machine Operator Name Role Phone Eugenio Suárez MD Primary Care Provider [phone] Allergies Active Allergy Reactions Criticality Noted Date Comments Iodine Containing Multivitamin 02/07 Etodolac 02/07/2013 Magnesium 02/07/2013 P-Aminobenzoic Acid 02/07/2013 Benzocaine-Triclosan 02/07/2013 Medications aspirin 81 MG EC tablet Take 81 mg by mouth daily. Active DOCOSAHEXANOIC ACID/EPA (EPA-DHA ORAL) Take by mouth. Active OMEGA-3S/DHA/EP A/FISH OIL/D3 (VITAMIN-D + OMEGA-3 ORAL) Take by mouth. Active acetaminophen (TYLENOL) 325 MG tablet Take 2 tablets (650 mg total) by mouth every 6 (six) hours as needed. 03/09/2013 Active acetaminophen (TYLENOL) 325 MG tablet Take 2 tablets (650 mg total) by mouth every 6 (six) hours as needed. 2 tablet 11/22/2013 Active acetaminophen (TYLENOL) 325 MG tablet Take 2 tablets (650 mg total) by mouth once. 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 Diffuse photodamage of skin 07/13/2014 Scar 06/23/2014 S/P scar revision 06/23/2014 Open wound 02/06/2014 Basal cell carcinoma of scalp 01/30/2014 History of basal cell carcinoma of skin 11/22/19 14 Status post skin flap graft 06/18/2013 Neoplasm of uncertain behavior of skin 3 Encounter for removal of sutures 02/16/2013 Overview (06/20/2015): Updated deactivated diagnoses after IMO load 2014 Basal cell carcinoma of skin of other parts of f tamera 02/07/2013 Overview (06/10/2016): IMO 2016 R2.1 update change Resolved Problems Problem Noted Date Diagnosed Date Resolved Date Open wound 02/06/2014 02/06/2014 Family History Medical History Relation Name Comments Cancer, Non-Melanoma Skin Cancer Neg Hx Melanoma Neg Hx Relation Name Status Comments Father Mother Social History Tobacco Use Types Packs/Day Years Used Date Smoking Tobacco: Never Alcohol Use Standard Drinks/Week Comments No 0 (1 standard drink = 0.6 oz pur e alcohol) Sex and Gender Information Value Date Recorded Sex Assigned at Not on file Legal Sex Male 1:40 PM EDT Gender Identity Not on file Sexual Orientation Not on file Last Filed Vital Signs Vital Sign Reading Time Taken Comments Blood Pressure 140/96 07/13/2014 9:27 AM EDT Pulse 79 07/13/2014 9:27 AM EDT Temperature - - Respiratory Rate - - Oxygen Saturation - - Inhaled Oxygen Concentration - - Weight 104.3 kg (230 lb) 07/13/2014 7:47 AM EDT Height 175.3 cm (5' 9 ) 07/13/2014 7:47 AM EDT Body Mass Index 33.97 07/13/2014 7:47 AM EDT Plan of Treatment Health Maintenance Due Date Last Done Comments HIV screening 1966 Hepatitis C screening 1971 Tetanus adult (Td q 10,TDAP once) 1973 Lipid disorder screening 1993 Colon cancer screening, Colonoscopy 1998 Diabetes screening 1998 Pneumococcal Vaccine (50+ ye ars) (1 of 1 - PCV) 2003 Shingles vaccine (Shingrix) (1 of 2 - Shingrix (RZV) 2 Dose Standard Series) 2003 Covid-19 vaccine series (1 - 2023-25 season) 2024 Influenza vaccine 05/29/2025 RSV Immunization (1 - 1-dose 75+ series) 2028 Meningococcal Vaccine Aged Out No jada fredy eligible based on patient's age to complete this topic Insurance [employer] Care Teams Flame Hardening Machine Operator Relationship Specialty Start Date End Date Eugenio Suárez MD [address] [place] [phone] PCP - General Internal Medicine 01/13/13
--- OUTSIDE RECORDS SUMMARY | 2025-01-24 13:32 | XMS_ITS | Clinical Summary ---
Author Organization [facility] Address [address] [place] [id number] Care Team Providers Care Electrical Instrumentation Technician Name Role Phone Unavailable Primary Care Provider Unavailabl e Social History Tobacco Use Types Packs/Day Years Used Date Smoking Tobacco: Never Assessed Sex and Gender Information Value Date Recorded Sex Assigned at Not on file Legal Sex Male 5:52 PM EST Gender Identity Not on file Sexual Orientation Not on file Plan of Treatment Health Maintenance Due Date Last Done Comments Hepatitis C Virus Screening 1955 DTaP/Tdap/Td Vaccines (1 - Tdap) 1972 Pneumococcal Vaccines 50+ (1 of 1 - PCV) 2003 Zoster (Shingles) Vaccine (1 of 2) 2003 COVID-19 Vaccine ( - 2023-2 5 season) 2024 RSV Vaccine 60 years and old er and Patients (1 - 1-dose 75+ series) 2028 Hepatitis B Vaccines Aged Out No long er eligible based on patient's age to complete this topic
--- OUTSIDE RECORDS SUMMARY | 2025-01-24 13:32 | XMS_ITS | Clinical Summary ---
Author Organization [facility] Address [address] [place] [address] Care Team Providers Care Informatics Educator Name Role Phone Eugenio Suárez MD Primary Care Provider [phone] Allergies Active Allergy Reactions Criticality Noted Date Comments Benzocaine Swelling 09/18/2016 Iodine Hives Medium 02/04/2014 Etodolac Medium 02/04/2014 ITCHING Magnesium Citrate 02/04/2014 Other Rash Low 01/21/2017 HAIR DYE Semaglutide(0.25 Or 0.5mg-Dos) 06/13 Aminobenzoate Rash Low 09/18/2016 blisters Medications Medication Sig Dispensed Refills Start Date End Date Status Cholecalciferol (VITAMIN D3) 5000 UNITS CAPS Take 1 capsule (5,000 Units total) by mouth daily. 0 Active Esomeprazole Magnesium (NEXIUM 24HR) 20 MG TBEC Take 1 tablet by mouth daily. 0 Active [place]-3 Fatty Acids (FISH OIL PO) Take 2 tablets by mouth daily. 0 Active acetaminophen (TYLENOL) 325 MG tablet Take 2 tablets (650 mg total) by mouth. 0 11/22/2013 Active Blood Glucose Monitoring Suppl (ACCU-CHEK KEITH PLUS) w/Device KITIndications:Typ e 2 diabetes mellitus without complication, without long-term current use of insulin (HCC) Check BG three times daily. 1 kit 0 07/21/2020 Active Lancet Devices MISCIndications:Ty pe 2 diabetes mellitus without complication, without long-term current use of insulin (HCC) Check BG three times daily. 100 each 6 07/23/2020 Active glucose blood (ACCU-CHEK KEITH PLUS) test strip Pt to use one strip daily 100 each 12 07/24/2020 Active Empagliflozin (Jardiance) 25 MG TABS Take 25 mg by mouth daily. 30 tablet 0 03/06/2022 Active Insulin Degludec (Tresiba FlexTouch) 200 UNIT/ML SOPN Inject 40 Units under the skin 2 (two) times a day after meals. Inject before units every morning and 60 units at night 15 mL 0 07/31/2023 Active Additional Information Patient taking differently:40 Units Subcutaneous 2 times daily after meals,Inject before units every morning and 60 units at night. Inject 65 units AM and PM, Reason: Other, Reported on 06/28/2024 guaiFENesin (MUCINEX) 600 MG 12 hr tablet Take 2 tablets (1,200 mg total) by mouth 2 (two) times a day. Takes 1 tab in AM 0 Active allopurinol (ZYLOPRIM) 300 MG tablet TAKE 1 TABLET BY MOUTH EVERY DAY 90 tablet 0 04/28/2024 Active Sod Picosulfate-Mag Ox-Cit Acd (Clenpiq) 10-3.5-12 MG-GM -GM/160ML SOLN Take 1 Bottle by mouth 2 (two) times a day. 320 mL 0 05/11/2024 Active B-D UF III MINI PEN NEEDLES 31G X 5 MM MISC USE WITH TRESIBA 2 TIMES A DAY E11 90 DAY 0 03/30/2024 Active torsemide (DEMADEX) 20 MG tablet Take 1 tablet (20 mg total) by mouth every other day. 45 tablet 0 06/11/2024 Active atorvastatin (LIPITOR) tablet 10 mg TAKE 1 TABLET BY MOUTH EVERY DAY 90 tablet 0 06/21/2024 Active buPROPion (WELLBUTRIN XL) 150 MG 24 hr tablet Take 1 tablet (150 mg total) by mouth daily. in the morning 0 06/21/2024 Active UNABLE TO FIND Med Name: Freestyle Chente monitor 0 Active UNABLE TO FIND daily. Med Name: Probiotic 0 Active UNABLE TO FIND every evening. Med Name: magnesium 500 mg 0 Active UNABLE TO FIND Med Name:Co Q10 0 Activ e metoprolol tartrate (LOPRESSOR) 50 MG tablet TAKE 1 TABLET BY MOUTH TWICE A DAY 180 tablet 0 07/07/2024 Active buPROPion (WELLBUTRIN XL) 300 MG 24 hr tablet Take 1 tablet (300 mg total) by mouth every morning. 0 Active Active Problems Problem Noted Date Diagnosed Date Traumatic pneumothorax 08/16/2024 Fowler's esophagus without dysplasia 08/16/2024 Esophageal reflux 06/10/2024 Family hx of colon cancer 06/10/2024 Chronic knee pain after tota l replacement of left knee joint 06/02/2024 Arthritis of right knee 06/02/2024 Gastroesophageal reflux disease 05/16/2024 Family history of colon cancer in father 024 Pain due to total left knee replacement 05/12/20 Acute non-recurrent maxillary sinusitis 05/02/20 Localized swelling of both lower legs 02/17/2024 History of left knee replacement 02/09/2024 Primary writing tremor 02/05/2024 Obstructive sleep apnea 02/05/2024 CKD stage 3b, GFR 30-44 ml/min 02/05/2024 Tightness in chest 02/01/2024 Coronary artery disease with cardiac symptoms Chronic fatigue 11/06/2023 Uncontrolled type 2 diabetes mellitus with hyperglycemia, with long-term current use of insulin 11/06/2023 Annual physical exam 06/13/2022 Major depressive disorder 03/12/2022 Disequilibrium syndrome 12/03/2021 Other fatigue 05/27/2021 Disequilibrium 02/18/2021 Chronic gout of multiple sites 10/25/2019 Rib pain 10/25/2019 Primary osteoarthritis of left ankle 10/25/2019 Spondylosis of cervical chari on without myelopathy or radiculopathy 07/26/2019 Onychomycosis due to dermatophyte 09/29/2018 Lymphedema of right lower extremity 06/09/2017 Vertigo 04/08/2017 Hyperuricemia 04/08/2017 Muscle cramps 04/08/2017 Primary osteoarthritis of left knee 01/27/2017 Renal stone 01/19/2017 Prostatic hyperplasia, benign localized, with ob struction 01/19/2017 Other malaise and fatigue 09/10/2016 Gastrointestinal hemorrhage associated with gastrojejunal ulcer 09/02/2016 Adiposity 05/12/2016 Osteoarthritis of knee 05/12/2016 Essential hypertension, benign 05/28/2015 Varicosities of leg 05/28/2015 Hyperlipidemia 05/28/2015 Photoaged skin 07/13/2014 History of basal cell carcinoma 11/22/2013 Basal cell carcinoma of face 02/07/2013 Resolved Problems Problem Noted Date Diagnosed Date Resolved Date Need for prophylactic vaccin ation and inoculation against influenza 07/24/2022 10/14/2022 Dysfunction of right eustachian tube 10/25/2019 10/14/2022 Acute pyelonephritis 06/18/2018 019 Functional diarrhea 04/08/2017 09/29/19 19 Preoperative examination 01/27/201708/2017 Need for immunization against influenza 07/16/2016 10/25/2019 Benign prostatic hypertrophy without lower urinary tract symptoms (LUTS) 05/12/2016 01/27/2017 S/P cholecystectomy 05/12/2016 06/03/20 18 S/P exploratory laparotomy 05/12/2016 0 06/03/2018 Gangrene of gallbladder 05/05/201604/28 Acute headache 07/18/2015 05/12/2016 Carcinoma in situ of skin of scalp 07/13/2014 01/27/2017 Postprocedural state 06/23/2014 017 Immunizations Name Administration Dates Next Due Covid-19 (Moderna Booster 18 +) 50mcg/0.5mL dosage 07/03/2024,07/23/2022 Covid-19 (Pfizer 12+) Fall 2022 0.3mL 06/23/2023 Influenza Quad (Afluria/Fluz one) 0.5mL >=6mon Vial (SD-IIV4) 06/23/2023,06/09/2017,07/16/2016 Influenza Quad (Fluarix/Fluz one/FluLaval) 0.5mL (SD-IIV4) 07/26/2019 07/26/2020 Influenza Quad (Flucelvax) 0 .5mL >6mon Vial (ccIIV4) 07/24/2022 Influenza Trivalent (Fluzone High Dose) 0.7 mL (65yrs &>) 07/03/2024 Influenza Trivalent (Fluzone /Afluria) 5.0mL Multi-dose Vial 07/18/2015 Pneumococcal Conjugate PCV20 07/20/2024 RSV preF (Abrysvo) Diluent R econstituted 0.5mL 60+Yrs 07/13/2024 Shingrix Vaccine (Zoster Recombinant) 07/22/2024 Tdap 08/17/2024 Family History Medical History Relation Name Comments Seizures Brother 1 Cancer Father Cancer Mother Pancreatitis Mother Hypertension Sister 1 Heart attack Sister 2 Relation Name Status Comments Brother 1 Brother 2 Alive Father Mother Sister 1 Alive Sister 2 Alive Social History Tobacco Use Types Packs/Day Years Used Date Smoking Tobacco: Never Smokeless Tobacco: Never Tobacco Cessation:Counseling Given: Not Answered Alcohol Use Standard Drinks/Week Comments Yes 0 (1 standard drink = 0.6 oz pur e alcohol) socially Social Connection and Isolation Panel [NHANES] A nswer Date Recorded In a typical week, how many times do you talk on the phone with family, friends, or neighbors? Never 01/20/20 How often do you get togethe r with friends or relatives? Once a week 01/20/2024 How often do you attend chur ch or oriental orthodox services? Never 01/20/2024 Do you belong to any clubs o r organizations such as catholic groups, unions, fraternal or athletic groups, or school groups? Yes 01/20/2024 How often do you attend meet ings of the clubs or organizations you belong to? 1 to 4 times per year 01/20/2024 Are you , , di vorced, , never , or living with a partner? 01/20/2024 Overall Financial Resource Strain (CARDIA) Answe r Date Recorded How hard is it for you to pa y for the very basics like food, housing, medical care, and heating? Not hard at all 01/20/2024 Hunger Vital Sign Answer Date Recorded Within the past 12 months, y ou worried that your food would run out before you got the money to buy more. Never true 01/20/20 Within the past 12 months, t he food you bought just didn't last and you didn't have money to get more. Never true 01/20/2024 PRAPARE - Transportation Answer Date Re corded In the past 12 months, has l ack of transportation kept you from medical appointments or from getting medications? No 12/28 In the past 12 months, has l ack of transportation kept you from meetings, work, or from getting things needed for daily living? No 01/20/2024 Housing Stability Vital Sign Answer Abdon e Recorded In the last 12 months, was t here a time when you were not able to pay the mortgage or rent on time? No 01/20/2024 In the last 12 months, how many places have you lived? 1 01/20/2024 In the last 12 months, was t here a time when you did not have a steady place to sleep or slept in a fdc (including now)? No 01/20/2024 Sex and Gender Information Value Date Recorded Sex Assigned at Male 05/11/2024 10:03 AM EDT Gender Identity Not on file Sexual Orientation Not on file Job Start Date Occupation Industry Not on file Not on file Not on file Last Filed Vital Signs Vital Sign Reading Time Taken Comments Blood Pressure 134/84 08/16/2024 8:51 AM EST Pulse 60 08/16/2024 8:51 AM EST Temperature 36.5 ??C (97.7 ??F) 06/30/2024 7:27 AM ED T Respiratory Rate 20 06/30/2024 9:20 AM EDT Oxygen Saturation 95% 08/16/2024 8:51 AM EST Inhaled Oxygen Concentration - - Weight 122.5 kg (270 lb) 08/16/2024 8:51 AM EST Height 170.2 cm (5' 7 ) 08/16/2024 8:51 AM EST Body Mass Index 42.29 08/16/2024 8:51 AM EST Plan of Treatment Health Maintenance Due Date Last Done Comments Hepatitis C Screening 1955 Diabetes: Foot Exam 1971 COVID-19 Vaccine ( season) 2024 07/03/2024, 06/23/2023, 07/23/2022, Additional history exists Shingrix-Zoster Vaccine (2 of 2) 09/16/2024 07/22/2024 Diabetes: Eye Exam (No Retinopathy) 09/18/2024 09/18/2022 (Pt Reported - Need documentation) Hemoglobin A1C Due 11/13/2024 05/13/2024, 0 02/05/2024, 11/06/2023, Additional history exists BMI Counseling 01/19/2025 01/20/2024, 11/0 11/2022, 04/23/2023, Additional history exists Depression Screening 01/19/2025 01/20/2024, 01/20/2024, 07/15/2023 Fall Risk Assessment 01/19/2025 01/20/2024, 01/20/2024, 07/15/2023 Preventative Health Evaluation 01/19/2025 01/20/2024, 07/15/2023, 01/27/2017 Diabetes: Microalbumin Test 05/17/2025 08/2 , 11/09/2023, 05/07/2023, Additional history exists Colon Cancer Screening (Colonoscopy) 06/30/2034 06/30/2024 DTap / Tdap / Td (2 - Td or Tdap) 08/17/2034 08/17/2024 Influenza Vaccine Completed 07/03/2024, , 06/23/2023, Additional history exists RSV Adult > 60+ Yrs or Completed 07/13/2024 Pneumococcal Vaccine Completed 07/20/2024 Hepatitis B Vaccines Aged Out No long er eligible based on patient's age to complete this topic RSV Ped < 20 months Aged Out No longe r eligible based on patient's age to complete this topic Medical Devices Implanted Type Area Oil Well Directional Surveyor Device Identifier Shelf Expiration Date Model / Serial / Lot Component Patellar All Poly Od35 Mm Psn - [id number] - [id number] Implanted:Qty: 1 on 02/05/2017 by Federico Deluca MD at [facility] [place] [facility] Left: Knee [employer] 12/26/2024 [id number] / / [id number] Psn Asf Cps 12mm Ve L 07-08 Ef - [id number] - [id number] Implanted:Qty: 1 on 02/05/2017 by Federico Deluca MD at [facility] [place] [facility] Left: Knee [employer] 03/27/2021 [id number] / / [id number] Stem Extension Persona Taper L30 Mm Od14 Mm - [id number] - [id number] Implanted:Qty: 1 on 02/05/2017 by Federico Deluca MD at [facility] [place] [facility] Left: Knee [employer] 01/25/2027 [id number] / / [id number] Baseplate Tibial Persona Tivanium 5 D F Knee Left Cemented S - [id number] - [id number] Implanted:Qty: 1 on 02/05/2017 by Federico Deluca MD at [facility] [place] [facility] Left: Knee [employer] 12/26/2026 [id number] / / [id number] Psn Fem Ps Cmt Ccr Std Sz10 L - [id number] - [id number] Implanted:Qty: 1 on 02/05/2017 by Federico Deluca MD at [facility] [place] and [facility] Left: Knee [employer] 05/28/2026 [id number] / / [id number] Cement Palacos R Bone 40 - [id number] - [id number] Implanted:Qty: 1 on 02/05/2017 by Federico Deluca MD at [facility] [place] and [facility] Left: Knee [employer] 06/08/2021 [id number] / / [id number] Cement Palacos R Bone 40gm - [id number] - [id number] Implanted:Qty: 1 on 02/05/2017 by Federico Deluca MD at [facility] [place] and [facility] Left: Knee [employer] 06/08/2021 [id number] / / [id number] Kit Cap Pricing Persona Beni Fem\Beni Tib Cps Ve Surf Std Pat - [id number] - [id number] Implanted:Qty: 1 on 02/05/2017 by Federico Deluca MD at [facility] [place] and [facility] Left: Knee [employer] [id number] / / Advance Directives For more information, please contact: [phone] Latest Code Status on File Code Status Date Activated Date Inactivated Comments Full Code 06/30/2024 8:52 AM 06/30/2024 3:58 PM This code status was ascertained in the following way: discussion with patient . Code Status History Code Status Date Activated Date Inactivated Comments Full Code 02/05/2017 11:43 AM 02/07/2017 6:12 PM This code status was ascertained in the following way: per living will or healthcare instructions. Full Code 02/05/2017 9:40 AM 02/05/2017 11:43 AM This code status was ascertained in the following way: discussion with patient. Full Code 05/02/2016 7:41 PM 05/05/2016 5:27 PM This co de status was ascertained in the following way: discussion with patient. Full Code 05/02/2016 2:39 PM 05/02/2016 7:41 PM This co de status was ascertained in the following way: discussion with patient. Care Teams Informatics Educator Relationship Specialty Start Date End Date Eugenio Suárez MD PCP - General Internal Medicine 05/01/15
--- OUTSIDE RECORDS SUMMARY | 2025-01-24 13:32 | XMS_ITS | Clinical Summary ---
Author Organization [facility] Address [address] [place] [address] Phone Care Team Providers Care Bail Bonding Agent Name Role Phone Eugenio Suárez MD Primary Care Provider [phone] Allergies Active Allergy Reactions Criticality Noted Date Comments Aminobenzoic Acid Rash Low 09/18/2016 blisters Benzocaine Swelling 09/18/2016 Etodolac Medium 02/04/2014 ITCHING Iodine Hives Medium 02/04/2014 Magnesium Citrate 02/04/2014 Other Rash Low 01/21/2017 HAIR DYE Semaglutide 06/13/2022 Medications allopurinoL (ZYLOPRIM) 300 mg tablet TAKE 1 TABLET BY MOUTH EVERY DAY 4 Active atorvastatin (LIPITOR) 10 mg tablet Take 1 tablet (10 mg total) by mouth daily. 3 Active cholecalciferol (VITAMIN D-3) 125 mcg (5,000 unit) capsule Take 1 tablet by mouth daily. Active Jardiance 25 mg tablet Take 25 mg by mouth daily. 2 Active esomeprazole magnesium 20 mg tablet,delayed release (DR/EC) Take 1 tablet by mouth daily. Active escitalopram (LEXAPRO) 10 mg tablet TAKE 1 TABLET BY MOUTH EVERY DAY 4 Active Tresiba FlexTouch U-200 200 unit/mL (3 mL) CONCENTRATED injection pen Inject 40 Units under the skin 2 (two) times a day after meals. Inject before units every morning and 60 units at night 3 Active metoprolol tartrate (LOPRESSOR) 50 mg tablet TAKE 1 TABLET BY MOUTH TWICE A DAY 4 Active olmesartan (BENICAR) 5 mg tablet TAKE 1 TABLET (5 MG TOTAL) BY MOUTH DAILY. 4 Active OMEGA-3 FATTY ACIDS-FISH OIL ORAL Active methocarbamoL (ROBAXIN) 500 mg tabletIndications :Closed fracture of one rib of left side with routine healing, subsequent encounter Take 1 tablet (500 mg total) by mouth 3 (three) times a day. 30 each 4 Active Active Problems Problem Noted Date Diagnosed Date Closed fracture of one rib of left side 08/06/20 Major depressive disorder 03/12/2022 Disequilibrium syndrome 12/03/2021 Other fatigue 05/27/2021 Disequilibrium 02/18/2021 Primary osteoarthritis of left ankle 10/25/2019 Rib pain 10/25/2019 Chronic gout of multiple sites 10/25/2019 Spondylosis of cervical chari on without myelopathy or radiculopathy 07/26/2019 Onychomycosis due to dermatophyte 09/29/2018 Lymphedema of right lower extremity 06/09/2017 Hyperuricemia 04/08/2017 Muscle cramps 04/08/2017 Vertigo 04/08/2017 Primary osteoarthritis of left knee 01/27/2017 Renal stone 01/19/2017 Prostatic hyperplasia, benign localized, with ob struction 01/19/2017 Gastrointestinal hemorrhage associated with gastrojejunal ulcer 09/02/2016 Adiposity 05/12/2016 Osteoarthritis of knee 05/12/2016 Essential hypertension, benign 05/28/2015 Hyperlipidemia 05/28/2015 Varicosities of leg 05/28/2015 Photoaged skin 07/13/2014 Basal cell carcinoma of face 02/07/2013 Resolved Problems Problem Noted Date Diagnosed Date Resolved Date Pneumothorax, traumatic 08/06/202407/29 Traumatic pneumothorax, initial encounter 08/06/2024 08/09/2024 Immunizations Name Administration Dates Next Due Influenza Quadravalent, 0.5m l (Fluad) 65yo and older 06/23/2023 Influenza Quadravalent, MDCK , 0.5ml, with preservative (Flucelvax) 6mo and older 07/24/2022 Influenza Quadrivalent, 0.5m l, preservative free (Fluarix; FluLaval; Fluzone) ages 6mo and older (Afluria) 3yo and older 07/26/2019 Influenza Quadrivalent, with preservative (Fluzone; Afluria) 6mo and older 06/23/2023,06/09/2017,07/16/2016 Influenza trivalent, with pr eservative (Fluzone; Afluria) 6mo and older 07/18/2015 Moderna (ages 6-11 primary) COVID-19, 0.5 mL dosage 07/23/2022 Surgical History Surgery Date Site/Laterality Comments VARICOSE VEIN SURGERY Left PROCEDURE:VARICOSE VEIN SURGERY UMBILICAL GRANULOMA EXCISION Left PROCEDURE:UMBILICAL GRANULOMA EXCISION KNEE ARTHROSCOPY Left PROCEDURE:KNEE ARTHROSCOPY UPPER GASTROINTESTINAL ENDOSCOPY PROCEDURE:UPPER GASTROINTESTINAL ENDOSCOPY COLONOSCOPY PROCEDURE:COLONOSCOPY CHOLECYSTECTOMY PROCEDURE:CHOLECYSTECTOMY TOTAL KNEE ARTHROPLASTY 02/05/2017 Left PROCEDURE:TOTAL KNEE ARTHROPLASTY;COMMENT:Procedur e: REPLACEMENT TOTAL KNEE; Surgeon: Federico Deluca MD; Location: [facility] Service: Orthopedics; Laterality: Left; CHOLECYSTECTOMY 05/02/2016 N/A PROCEDURE:CHOLECYSTECTOMY OPEN;COMMENT:Procedure: CHOLECYSTECTOMY OPEN; Surgeon: Nayely Bennett MD; Location: [facility]; Service: General; Laterality: N/A; CATARACT EXTRACTION W/ INTRAOCULAR LENS IMPLANT Bilateral PROCEDURE:CATARACT EXTRACTION W/ INTRAOCULAR LENS IMPLANT COLONOSCOPY 06/30/2024 N/A PROCEDURE:COLONOSCOPY;COMMENT :Procedure: COLONOSCOPY; Surgeon: Harsh Bang MD; Location: [facility]; Service: Gastroenterology; Laterality: N/A; UPPER GASTROINTESTINAL ENDOSCOPY 06/30/2024 N/A PROCEDURE:UPPER GASTROINTESTINAL ENDOSCOPY;COMMENT:Procedure: UPPER ENDOSCOPY-EGD; Surgeon: Harsh Bang MD; Location: [facility]; Service: Gastroenterology; Laterality: N/A; Medical History Medical History Date Comments PVD (peripheral vascular dis ease) ([facility]/HCC V24) DX:PVD (peripheral vascular disease) ([facility]) Vertigo DX:Vertigo;COMME NT:severe 15 yrs ago. Occ now Hypertension DX:Hypertension Varicose veins DX:Varicose vein s Obesity DX:Obesity Pneumonia DX:Pneumonia Sleep apnea DX:Sleep apnea Dyspnea on effort DX:Dyspnea on effort Diverticulosis large intesti ne w/o perforation or abscess w/bleeding DX:Diverticulosis la rge intestine w/o perforation or abscess w/bleeding Fowler esophagus DX:Fowler eso phagus Sleep apnea, obstructive DX:Slee p apnea, obstructive;COMMENT:COMPLIANT WITH CPAP Abnormal EKG DX:Abnormal EKG Vertigo DX:Vertigo GERD (gastroesophageal reflu x disease) DX:GERD (gastroesophageal re flux disease) GI (gastrointestinal bleed) 03/2016, 05/2016 DX:G I (gastrointestinal bleed) Anemia DX:Anemia BPH (benign prostatic hyperplasia) DX:BPH (benign prostatic hyperplasia) Anesthesia DX:Anesthesia;CO MMENT:SLOW TO WAKE History of transfusion DX:Histor y of transfusion Kidney stone DX:Kidney stone;COMMENT: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 V24, [facility] V28) DX:Cancer ([facility]);COMMENT:Skin of head and neck Cancer ([facility] V24, 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 receiving topical therapy Osteoarthritis DX:Osteoarthriti s Coronary artery disease with cardiac symptoms 01/18/2024 DX:Coronary artery disease w ith cardiac symptoms PONV (postoperative nausea a nd vomiting) DX:PONV (postoperative nause a and vomiting) Depression DX:Depression Visual impairment DX:Visual impairment;COMMENT:glasses Tremor DX:Tremor;COMMEN T:baseline tremor left hand Family History Medical History Relation Name Comments [...] drink = 0.6 oz pur e alcohol) Interpersonal Safety Answer Date Record ed Physical Abuse 08/07/2024 Verbal Abuse 08/07/2024 Sex and Gender Information Value Date Recorded Sex Assigned at Not on file Legal Sex Male 6:52 PM EDT Gender Identity Not on file Sexual Orientation Not on file Obstetrics History Last Filed Vital Signs Vital Sign Reading Time Taken Comments Blood Pressure 101/63 08/23/2024 10:04 AM EST Pulse 60 08/23/2024 10:04 AM EST Temperature 36.4 ??C (97.6 ??F) 08/23/2024 10:[address] Respiratory Rate 16 08/23/2024 10:04 AM EST Oxygen Saturation 96% 08/23/2024 10:04 AM EST Inhaled Oxygen Concentration - - Weight 121 kg (266 lb) 08/06/2024 5:10 PM EST Height 170.2 cm (5' 7 ) 08/06/2024 5:10 PM EST Body Mass Index 41.66 08/06/2024 5:10 PM EST Plan of Treatment Health Maintenance Due Date Last Done Comments Diabetes: Annual Foot Exam 1965 Hepatitis C Screening 09/04/2022 Medicare Annual Wellness Visit 09/04/2022 Social Influencers of Health Screening 09/04/2022 Diabetes: Annual Retina Eye Exam 09/18/2023 09/18/2022 Depression Screening 07/15/2024 07/15/2023 Zoster Vaccines (2 of 2) 09/16/2024 07/22/2024 Diabetes: Annual Urine Albumin-Creatinine Ratio (uACR) 10/04/2024 05/07/2023 Diabetes: Blood Sugar Control Test (HGBA1C) 11/13/2024 05/13/2024, 02/05/2024, 11/06/2023 COVID-19 Vaccine (6 - Mixed Product risk season) 2025 07/03/2024, 06/23/2023, 07/23/2022, Additional history exists Diabetes: Annual GFR (Glomerular Filtration Rate) 08/08/2025 08/08/2024, 08/07/2024, 08/06/2024, Additional history exists Hypertension/CHF/CAD Annual BMP Blood Test 08/08/2025 08/08/2024, 08/07/2024, 08/06/2024, Additional history exists Falls Risk Assessment 08/09/2025 08/09/2024, 023 Cholesterol Screening (Lipid Panel) 05/07/2028 05/07/2023 Colorectal Cancer Screening: Colonoscopy 06/30/2034 06/30/2024 DTaP,Tdap,and Td Vaccines (2 - Td or Tdap) 08/17/2034 08/17/2024 Influenza Vaccine Completed 07/03/2024, , 06/23/2023, Additional history exists RSV Immunization Adult Patients Completed 07/13/2024 Pneumococcal Vaccine: 50+ Years Completed 07/20/2024 HIB Vaccines Aged Out No longer eligi ble based on patient's age to complete this topic HPV Vaccines Aged Out No longer eligi ble based on patient's age to complete this topic Hepatitis A Vaccines Aged Out No long er eligible based on patient's age to complete this topic Hepatitis B Vaccines Aged Out No long er eligible based on patient's age to complete this topic IPV Vaccines Aged Out No longer eligi ble based on patient's age to complete this topic MMR Vaccines Aged Out No longer eligi ble based on patient's age to complete this topic Meningococcal ACWY Vaccine Aged Out N o longer eligible based on patient's age to complete this topic Meningococcal B Vaccine Aged Out No l onger eligible based on patient's age to complete this topic RSV Immunization Patients Under 20 months Aged Out No longer eligible based on patient's age to complete this topic Varicella Vaccines Aged Out No longer eligible based on patient's age to complete this topic Procedures Procedure Name Priority Date/Time Associated Diagnosis Comments BASIC METABOLIC PANEL Timed 08/08/2024 4:40 AM EST HEMOGLOBIN A1C Routine 11/06/2023 DEPRESSION SCREENING Routine 07/15/2023 FALLS RISK ASSESSMENT Routine 07/15/2023 URINE ALBUMIN CREATININE RATIO Routine 05/07/2023 LIPID PANEL Routine 05/07/2023 DIABETES EYE EXAM Routine 09/18/2022 from Last 3 Months or Most Recently Relevant to Health Maintenance Results * (ABNORMAL) Basic metabolic panel (08/08/2024 4:40 AM EST) Sodium 136 135 - 145 mmol/L LAB CHEMISTRY METHOD 08/08/2024 5:30 AM [facility] Potassium 4.0 3.5 - 5.1 mmol/L LAB CHEMISTRY METHOD 08/08/2024 5:30 AM [facility] Comment:Slightly Hemolyzed Chloride 103 98 - 107 mmol/L LAB CHEMISTRY METHOD 08/08/2024 5:30 AM [facility] CO2 26 24 - 32 mmol/L LAB CHEMISTRY METHOD 08/08/2024 5:30 AM [facility] Anion Gap 7 5 - 14 LAB CHEMISTRY METHOD 08/08/2024 5:30 AM [facility] Glucose 127 70 - 199 mg/dL LAB CHEMISTRY METHOD 08/08/2024 5:30 AM [facility] BUN 31(H) 9 - 20 mg/dL LAB CHEMISTRY METHOD 08/08/2024 5:30 AM [facility] Creatinine 1.60(H) 0.70 - 1.30 mg/dL LAB CHEMISTRY METHOD 08/08/2024 5:30 AM [facility] eGFR 46(L) >=60 mL/min/1. 73m2 LAB CHEMISTRY METHOD 08/08/2024 5:30 AM [facility] Comment:Calculation based on the??Chronic Kidney Disease Epidemiology Collaboration (CKD-EPI) equation refit??without adjustment for race. BUN/Creatinine Ratio 19.4 12.0 - 20.0 LAB CHEMISTRY METHOD 08/08/2024 5:30 AM [facility] Calcium 9.1 8.4 - 10.2 mg/dL LAB CHEMISTRY METHOD 08/08/2024 5:30 AM [facility] Blood Venous blood specimen / Unknown Venipuncture / Unknown 08/08/2024 4:40 AM EST 08/08/2024 4:55 AM EST Result [facility] Yady Kan MD LAB BLOOD ORDERABLES Final Result Performing Organization Address City/State/[facility] Co de Phone Number [facility] [address] [place] [address], * Hemoglobin A1c (11/06/2023) Pathologist [facility] Hemoglobin A1C 8.0 % Blood Venous blood specimen / Unknown Result [facility] Historical Provider LAB BLOOD ORDERABLES Alejandra l Result * Falls Risk Assessment (07/15/2023) Pathologist [facility] Falls Risk Assessment Abstracted Result [facility] Historical Provider HEALTH MAINTENANCE Final Result * Depression Screening (07/15/2023) Pathologist [facility] Depression Screening Abstracted Result [facility] Historical Provider HEALTH MAINTENANCE Final Result * Urine Albumin Creatinine Ratio (05/07/2023) Pathologist [facility] Urine Albumin Creatinine Ratio Abstracted Result [facility] Historical Provider HEALTH MAINTENANCE Final Result * Lipid panel (05/07/2023) [facility] LDL/HDL Ratio 3 Triglycerides 142 mg/dL Cholesterol 142 mg/dL HDL 43 mg/dL LDL Cholesterol 76 mg/dL Blood Venous blood specimen / Unknown Result [facility] Historical Provider LAB BLOOD ORDERABLES Alejandra l Result * Diabetes Eye Exam (09/18/2022) Pathologist [facility] Diabetes: Annual Retina Eye Exam Abstracted Result [facility] Historical Provider HEALTH MAINTENANCE Final Result from Last 3 Months or Most Recently Relevant to Health Maintenance Insurance MEDICARE [facility]) Advance Directives * Full Code - Default (Latest Code Status on File) Date Activated Date Inactivated Comments 08/06/2024 11:19 PM 08/09/2024 5:20 PM This is or samantha is used when code status has not been discussed with the patient, or code status is otherwise unknown/unconfirmed To update the patient's code status, place a code status order. Do not modify or discontinue any currently active code status orders. Care Teams Bail Bonding Agent Relationship Specialty Start Date End Date Eugenio Suárez MD [address] [place] [address] PCP - General Internal Medicine 05/01/15
--- OUTSIDE RECORDS SUMMARY | 2025-01-24 13:32 | XMS_ITS | Clinical Summary ---
Author Organization [facility] Address [address] [address] [address] [place] [address] Phone Care Team Providers Care Food Service Cashier Name Role Phone Eugenio Suárez MD Primary Care Provider [phone] Allergies Active Allergy Reactions Criticality Noted Date Comments Aminobenzoate Rash Low 02/07/2013 blisters Benzocaine Swelling 09/18/2016 Benzocaine-Triclosan 02/07/2013 Etodolac Medium 02/07/2013 ITCHING Iodine Hives,Other (see comments) Medium 02/07/2013 Magnesium 02/07/2013 Magnesium Citrate Other (see comments) 02/05/20 14 Other Rash Low 01/21/2017 HAIR DYE Semaglutide(0.25 Or 0.5mg-Dos) 06/13/2022 Lidocaine Other (see comments) 02/15/2021 Medications metoprolol tartrate (LOPRESSOR) 25 MG tablet Take 1 tablet by mouth 2 (two) times a day Active Insulin Degludec (Tresiba) 100 UNIT/ML solution Inject under the skin Active Empagliflozin (Jardiance) 25 MG tablet Take 25 mg by mouth 1 (one) time each day Active allopurinol (ZYLOPRIM) 300 MG tablet Take 300 mg by mouth 1 (one) time each day 03/10/2022 Active atorvastatin (LIPITOR) 10 MG tablet Take 1 tablet by mouth 1 (one) time each day 11/28/2022 Active metoprolol tartrate (LOPRESSOR) 50 MG tablet Take 1 tablet by mouth in the morning and 1 tablet in the evening. 02/12/2023 Active hydroCHLOROthia zide 25 MG tablet TAKE 0.5 TABLETS BY MOUTH 1 TIME EACH DAY. 90 tablet 3 05/11/2023 Active Active Problems Problem Noted Date Diagnosed Date Major depressive disorder 03/12/2022 Dysequilibrium syndrome 12/03/2021 Other fatigue 05/27/2021 Loss of equilibrium 02/18/2021 Acute nontraumatic kidney injury 02/15/2021 Stage 3a chronic kidney disease 02/15/2021 Hypertensive renal disease 02/15/2021 Renal stone 01/19/2017 Benign essential hypertension 05/28/2015 Resolved Problems Problem Noted Date Diagnosed Date Resolved Date Type 2 diabetes mellitus 07/23/2020 Chronic gouty arthritis 10/25/201901/27 Dysfunction of right eustachian tube 10/25/2019 02/15/2021 Primary osteoarthritis of left ankle 10/25/2019 02/15/2021 Rib pain 10/25/2019 02/15/2021 Cervical spondylosis without myelopathy 07/26/2019 02/15/2021 Onychomycosis due to dermatophyte 09/29/2018 02/15/2021 Acute cystitis without hematuria 07/27/2018 02/15/2021 Lymphedema of right lower limb 06/09/2017 02/15/2021 Cramp 04/08/2017 02/15/2021 Hyperuricemia 04/08/2017 02/15/2021 Vertigo 04/08/2017 02/15/2021 Benign prostatic hyperplasia with outflow obstruction 01/19/2017 02/15/2021 Other malaise and fatigue 09/10/2016 Gastrointestinal hemorrhage 09/02/2016 02/15/2021 Osteoarthritis of knee 05/12/201602/15 Obesity 05/12/2016 02/15/2021 Hyperlipidemia 05/28/2015 02/15/2021 Varicose veins of lower extremity 05/28/2015 02/15/2021 Carcinoma in situ of skin of scalp 07/13/2014 02/15/2021 Solar degeneration 07/13/2014 H/O Spinal surgery 06/23/2014 1 Scar 06/23/2014 02/15/2021 Open wound 02/06/2014 02/15/2021 Basal cell carcinoma of scalp 01/30/2014 02/15/2021 History of malignant basal c ell neoplasm of skin 11/22/2013 02/15/2021 H/O: skin recipient 06/18/2013 02/16/20 Neoplasm of uncertain behavior of skin 03/11/2013 02/15/2021 Encounter for removal of sutures 02/16/2013 02/15/2021 Overview (02/15/2021): Updated deactivated diagnoses after IMO load 2014 Basal cell carcinoma of face 02/07/2013 02/15/2021 Overview (02/15/2021): IMO 2016 R2.1 update change Immunizations Immunization Administration Dates Next Due Influenza TIV (IM) 07/18/2015 Influenza, MDCK, Quadrivalent, with preservative 07/24/2022 Influenza, Quadrivalent, Preservative Free 07/26 Influenza, Quadrivalent, With Preservative 06/09,07/16/2016 Family History Medical History Relation Comments Kidney disease Mother ESRD and was on dialysis Relation Status Comments Mother Social History Tobacco Use Types Packs/Day Years Used Date Smoking Tobacco: Never Smokeless Tobacco: Never Tobacco Cessation:Counseling Given: Not Answered Sex and Gender Information Value Date Recorded Sex Assigned at Not on file Legal Sex Male 4:53 PM EST Gender Identity Not on file Sexual Orientation Not on file Last Filed Vital Signs Vital Sign Reading Time Taken Comments Blood Pressure 126/80 02/12/2023 2:45 PM EDT Pulse 60 02/12/2023 2:45 PM EDT Temperature - - Respiratory Rate - - Oxygen Saturation 97% 02/18/2021 1:26 PM EDT Inhaled Oxygen Concentration - - Weight 121 kg (267 lb 6.4 oz) 02/12/2023 2:45 PM EDT Height 170.2 cm (5' 7 ) 02/06/2020 12:00 PM EDT Body Mass Index 41.88 02/06/2020 12:00 PM EDT Plan of Treatment Health Maintenance Due Date Last Done Comments Pneumococcal Vaccine: 50+ Years (1 of 2 - PCV) 1972 Colorectal Cancer Screening: Annual FOBT 2002 Colorectal Cancer Screening: Colonoscopy 2002 Colorectal Cancer Screening: Sigmoidoscopy 2002 Influenza Vaccine (Season Ended) 2025 07/24/2022, 07/26/2019, 06/09/2017, Additional history exists Hepatitis B Vaccine Aged Out No longe r eligible based on patient's age to complete this topic Insurance Medicare Medicare Care Teams Food Service Cashier Relationship Specialty Start Date End Date Eugenio Suárez MD [address] [place] [address] PCP - General 10/08/20
== END 2025-01-24 12:12 | disposition home or self-care (01) ==
LOC: HO.HKAS 11:24
PROVIDERS: Visit Provider Internal Medicine Nephrology
DX: N18.31 Chronic kidney disease, stage 3a (principal); N20.0 Calculus of kidney; I10 Essential (primary) hypertension
CPT/HCPCS: 99214

== ENCOUNTER → 2025-01-24 11:24 | Outpatient (BNVA) | payer MEDICARE, SELFPAY | PROVIDERS: Visit Provider Internal Medicine Nephrology | DX: I11.0 Hypertensive heart disease with heart failure (principal); N18.31 Chronic kidney disease, stage 3a; N20.0 Calculus of kidney | CPT/HCPCS: 99212 ==

== ENCOUNTER 2025-08-22 09:20 | Outpatient (AMB) | payer MEDICARE, SELFPAY ==
--- OUTSIDE RECORDS SUMMARY | 2025-08-16 23:59 | XMS_ITS | Continuity of Care Document ---
Author Organization [facility] Address [address] [place] [address]- Care Team Providers Care Athletic Turf Worker Name Role Phone Jose Armando SALAZAR, Eugenio Primary Care Physician [place] [facility] [place] 08/16/25 [facility] [address] [place] [address]- Encounter Type: Triage Allergies, Adverse Reactions, Alerts Substance Criticality Severity Reaction Reaction Severity Status magnesium citrate Ac tive Lodine Itching Active iodine Active PABA Blisters Active Solarcaine Active Medications Accu check guide lancets Accu check guide lancets, See Instructions, # 300 each, Refills 1, Tot. Refills 1, Maintenance, E11.9 90 day use to check sugar 3x daily, 04/18/25 9:10:00 AM EDT, Supply, 171, cm, 04/18/25 9:00:00 EDT, Height Start Date: 04/18/25 Status: Ordered Medication Dispense Status: Completed Quantity: 300.0 Unit: each Total Allowed Fills: 2 Fills Dispensed: 0 Accu check Guide meter Accu check Guide meter, See Instructions, # 1 each, Refills 0, Tot. Refills 0, Maintenance, E11.9 90 day use to check sugar 3x daily, 04/18/25 9:10:00 AM EDT, Supply, 171, cm, 04/18/25 9:00:00 EDT, Height Start Date: 04/18/25 Status: Ordered Medication Dispense Status: Completed Quantity: 1.0 Unit: each Total Allowed Fills: 1 Fills Dispensed: 0 Accu check guide test strips Accu check guide test strips, See Instructions, # 300 each, Refills 1, Tot. Refills 1, Maintenance,E11.9 90 day use to check sugar 3x daily, 04/18/25 9:10:00 AM EDT, Supply, 171, cm, 04/18/25 9:00:00EDT, Height Start Date: 04/18/25 Status: Ordered Medication Dispense Status: Completed Quantity: 300.0 Unit: each Total Allowed Fills: 2 Fills Dispensed: 0 acetaminophen 325 mg oral tablet 0 Refill(s), Refills 0, 11/21/13 7:00:00 PM EST, Partial fill upon patient request if the prescription is for a schedule II opioid drug. Start Date: 11/21/13 Status: Ordered Medication Dispense Status: Completed Total Allowed Fills: 1 Fills Dispensed: 0 allopurinol 100 mg oral tablet 100 mg, 1, tablet, By Mouth, Daily, Refills 0, Maintenance, 10/03/18 3:08:28 AM EST Start Date: 10/03/18 Status: Ordered Medication Dispense Status: Completed Total Allowed Fills: 1 Fills Dispensed: 0 allopurinol 300 mg oral tablet 90 each, 0 Refill(s), TAKE 1 TABLET BY MOUTH EVERY DAY, Refills 0, 04/18/25 8:52:00 AM EDT, Partial fill upon patient request if the prescription is for a schedule II opioid drug. Start Date: 04/18/25 Status: Ordered Medication Dispense Status: Completed Total Allowed Fills: 1 Fills Dispensed: 0 atorvastatin 10 mg oral tablet 1 tablet = 10 mg, By Mouth, Daily, 0 Refills, Maintenance, 03/18/23 1:11:00 PM EDT, Partial fill upon patient request if the prescription is for a schedule II opioid drug. Start Date: 03/18/23 Status: Ordered Medication Dispense Status: Completed Total Allowed Fills: 1 Fills Dispensed: 0 Baqsimi Two Pack 3 mg nasal powder = 3 mg, Naris, Left, Once, E11.9 90 day use for urgent hypoglyceia, # 2 each, 1 Refills, Soft Stop,04/18/25 9:12:00 AM EDT, [facility]/pharmacy #[id number], Partial fill upon patient request if the prescription is for a schedule II opioid drug., 171, cm, 04/18/25 9:00:00 EDT, Height Start Date: 04/18/25 Status: Ordered Medication Dispense Status: Completed Quantity: 2.0 Unit: each Total Allowed Fills: 2 Fills Dispensed: 0 buPROPion 300 mg/24 hours (XL) oral tablet, extended release 90 each, 0 Refill(s), TAKE 1 TAB, IN THE MORNING, 0 Refills, 04/18/25 8:52:00 AM EDT, Partial fill upon patient request if the prescription is for a schedule II opioid drug. Start Date: 04/18/25 Status: Ordered Medication Dispense Status: Completed Total Allowed Fills: 1 Fills Dispensed: 0 cholecalciferol 5000 intl units oral capsule 0 Refill(s), 0 Refills, 04/18/25 8:52:00 AM EDT, Partial fill upon patient request if the prescription is for a schedule II opioid drug. Start Date: 04/18/25 Status: Ordered Medication Dispense Status: Completed Total Allowed Fills: 1 Fills Dispensed: 0 Clenpiq 10 mg-3.5 g-12 g/160 mL oral liquid 0 Refill(s), 0 Refills, 05/10/24 8:00:00 PM EDT, Partial fill upon patient request if the prescription is for a schedule II opioid drug. Start Date: 05/10/24 Status: Ordered Medication Dispense Status: Completed Total Allowed Fills: 1 Fills Dispensed: 0 escitalopram 10 mg oral tablet 90 each, 0 Refill(s), TAKE 1 TABLET BY MOUTH EVERY DAY, 0 Refills, 03/29/24 9:00:00 AM EDT, Partial fill upon patient request if the prescription is for a schedule II opioid drug. Start Date: 03/29/24 Status: Ordered Medication Dispense Status: Completed Total Allowed Fills: 1 Fills Dispensed: 0 escitalopram 20 mg oral tablet 0 Refill(s), 0 Refills, 04/06/22 8:00:00 PM EDT, Partial fill upon patient request if the prescription is for a schedule II opioid drug. Start Date: 04/06/22 Status: Ordered Medication Dispense Status: Completed Total Allowed Fills: 1 Fills Dispensed: 0 esomeprazole 20 mg oral delayed release tablet 0 Refill(s), 0 Refills, 04/18/25 8:52:00 AM EDT, Partial fill upon patient request if the prescription is for a schedule II opioid drug. Start Date: 04/18/25 Status: Ordered Medication Dispense Status: Completed Total Allowed Fills: 1 Fills Dispensed: 0 Freestyle edwin 3 plus sensors Freestyle edwin 3 plus sensors, See Instructions, # 7 each, Refills 3, Tot. Refills 3, Maintenance,E11.9 90 day use to monitor sugar continuously, 04/18/25 9:14:00 AM EDT, Supply, 171, cm, 04/18/25 9:00:00 EDT, Height Start Date: 04/18/25 Status: Ordered Medication Dispense Status: Completed Quantity: 7.0 Unit: each Total Allowed Fills: 4 Fills Dispensed: 0 freestyle bull test strips freestyle bull test strips, See Instructions, # 400 each, Refills 3, Tot. Refills 3, Maintenance, E11.9 90 day test 3x/day, 12/04/23 11:23:00 AM EST, Supply, 171, cm, 03/18/23 13:05:00 EDT, Height Start Date: 12/04/23 Status: Ordered Medication Dispense Status: Completed Quantity: 400.0 Unit: each Total Allowed Fills: 4 Fills Dispensed: 0 guaiFENesin 600 mg oral tablet, extended release 0 Refill(s), 0 Refills, 04/18/25 8:52:00 AM EDT, Partial fill upon patient request if the prescription is for a schedule II opioid drug. Start Date: 04/18/25 Status: Ordered Medication Dispense Status: Completed Total Allowed Fills: 1 Fills Dispensed: 0 Jardiance 25 mg oral tablet 1 tablet, By Mouth, Daily in AM, # 90 tablet, 3 Refills, Maintenance, 04/18/25 9:07:00 AM EDT, [facility]/pharmacy #[id number], 171, cm, 04/18/25 9:00:00 EDT, Height Start Date: 04/18/25 Status: Ordered Medication Dispense Status: Completed Quantity: 90.0 Unit: tablet Total Allowed Fills: 4 Fills Dispensed: 0 metoprolol 25 mg oral tablet 25 mg, By Mouth, 2 times a day, # 60 tablet, Refills 0, Tot. Refills 0, Maintenance, 10/03/18 3:48:43PM EST, Route to Pharmacy Electronically, [facility]/pharmacy #[id number] Start Date: 10/03/18 Status: Ordered Medication Dispense Status: Completed Quantity: 60.0 Unit: tablet Total Allowed Fills: 1 Fills Dispensed: 0 metoprolol 50 mg oral tablet 0 Refill(s), Refills 0, 10/09/24 7:00:00 PM EST, Partial fill upon patient request if the prescription is for a schedule II opioid drug. Start Date: 10/09/24 Status: Ordered Medication Dispense Status: Completed Total Allowed Fills: 1 Fills Dispensed: 0 Miscellaneous Rx 0 Refills, 200 each, 0 Refill(s), USE WITH TRESIBA 2X/DAY 90 DAY, 04/18/25 8:52:00 AM EDT Start Date: 04/18/25 Status: Ordered Medication Dispense Status: Completed Total Allowed Fills: 1 Fills Dispensed: 0 Mounjaro 2.5 mg/0.5 mL subcutaneous solution = 2.5 mg, Subcutaneous Injection, Every week, rotate injection sites. E11.9, # 4 each, 2 Refills, Maintenance, 08/08/25 4:05:00 PM EST, Solution, [facility]/pharmacy #[id number], Partial fill upon patient requestif the prescription is for a schedule II opioid drug., 171, cm, 07/04/25 7:51:00 EDT, Height Start Date: 08/08/25 Status: Ordered Medication Dispense Status: Completed Quantity: 4.0 Unit: each Total Allowed Fills: 3 Fills Dispensed: 0 Pen Prim, 31 G x 5 mm BD Ultra Fine III See Instructions, # 100 each, Refills 3, Tot. Refills 3, Maintenance, use with tresiba 1x/day , 04/18/25 9:14:00 AM EDT, Supply, 171, cm, 04/18/25 9:00:00 EDT, Height Start Date: 04/18/25 Status: Ordered Medication Dispense Status: Completed Quantity: 100.0 Unit: each Total Allowed Fills: 4 Fills Dispensed: 0 scopolamine 1 mg/72 hr transdermal film, extended release 4 each, 0 Refill(s), PLACE 1 PATCH BEHIND 1 EAR 4 HOURS BEFORE DEPARTURE, 0 Refills, 03/29/24 9:00:00AM EDT, Partial fill upon patient request if the prescription is for a schedule II opioid drug. Start Date: 03/29/24 Status: Ordered Medication Dispense Status: Completed Total Allowed Fills: 1 Fills Dispensed: 0 torsemide 20 mg oral tablet 0 Refills, Maintenance, 03/29/24 8:29:00 AM EDT, Partial fill upon patient request if the prescription is for a schedule II opioid drug. Start Date: 03/29/24 Status: Ordered Medication Dispense Status: Completed Total Allowed Fills: 1 Fills Dispensed: 0 Tresiba FlexTouch 200 units/mL subcutaneous solution See Instructions, INJECT 50 UNITS twice daily E11.9 90 day, # 36 mL, 5 Refills, Maintenance, 08/10/25 3:56:00 PM EST, [facility]/pharmacy #[id number], 171, cm, 07/04/25 7:51:00 EDT, Height Start Date: 08/10/25 Status: Ordered Medication Dispense Status: Completed Quantity: 36.0 Unit: mL Total Allowed Fills: 6 Fills Dispensed: 0 Problem List Condition Confirmation Course Effective Dates Status Health St atus Informant Severe obesity Confirmed Active Social History Social History Type Response Smoking Status Never (less than 100 in lifetime) entered on: 03/18/23 Sex Sex Representation Male (finding) Patient Care team information Care Team Personnel Name: Preston San MD Position: [facility] Renal MD Member Role: Lifetime Consulting Physician Address: [address] [place] [address] [id number] [facility] [place] [address]- Telecom: Name: Eugenio Suárez MD Position: Reference Physician Member Role: PCP Address: [address] [place] [address] Telecom: Care Team Related Persons Name: DEBBIE BARRERA Name: KAREN BARRERA Insurance Providers Guarantor name: OSKAR BARRERA Health Plan Information #: 1 Payer: MEDICARE B Payer Identifier: NA Member Number: [id number] Group Number: NA Subscriber Identifier: NA Relationship to Subscriber: self Coverage Type: NA Coverage Verification Date: NA Telecom: NA Address: Health Plan Information #: 2 Payer: [facility] Payer Identifier: NA Member Number: [id number] Group Number: [id number] Subscriber Identifier: NA Relationship to Subscriber: self Coverage Type: Medicare Other Coverage Verification Date: NA Telecom: NA Address: NA
--- NOTE | 2025-08-22 09:25 | HO.NEPHOV_ITS ---
Vital Signs 08/22/25 09:28 Height 5 ft 7 in Weight 266 lb 8 oz BMI 41.7 BP 130/70 Blood Pressure Location Lt brachial Position Sitting Pulse 63 Pulse Source Pulse Oximeter Pulse Oximetry (%) 98 Oxygen Delivery Method Room Air Intake Visit Reasons: 7mon follow-up w/labs-Conf Tape Recorder Mechanic Required: No Accompanied by: Self / Same As Patient Allergies aloe vera (From Solarcaine Cool Aloe) Allergy (Verified 08/22/25 09:27) Unknown benzocaine Allergy (Verified 08/22/25 09:) Swelling etodolac Allergy (Verified 08/22/25 09:) Itching iodine Allergy (Verified 08/22/25:) Hives lidocaine (From Solarcaine Cool Aloe) Allergy (Verified 08/22/25:) Unknown magnesium Allergy (Verified 08/22/25:) Unknown semaglutide Allergy (Verified 08/22/25 09:) Unknown aminobenzoate Allergy (Uncoded 02/02/24 10:10) Unknown HPI Comments Details: Yazan was seen in follow-up of his chronic kidney disease and hypertension. He is a diabetic and his blood sugar control is fair. He has a new diagnosis of VAN and right renal tumor. He is seeing Urology, Endocrinology and liver MD in addition to peripheral neuropathy ( was found out due to balance issues). He has been on Jardiance which he is tolerating well. He has cut back sodium in the diet and is trying to lose some weight. He had no relapse of renal stone disease, doing pain or hematuria. His mother had ESRD and was on dialysis. He has no chest pain, shortness of breath, proximal nocturnal dyspnea, orthopnea, orthostatic symptoms, joint swellings, sinusitis, epistaxis, hematuria. He does not take any nonsteroidal anti-inflammatory medications and maintains good hydration.His serum creatinine is close to baseline.His depression is better. Otherwise he feels well [facility] Medical History (Updated 08/22/25 @ 09:39 by Preston San MD) Renal stone Essential (primary) hypertension CKD stage 3a, GFR 45-59 ml/min Surgical History Status post surgical removal of malignant neoplasm of skin History of cholecystectomy History of left knee replacement Family History Sister Heart disease Sister Hypertension Mother Diabetes Kidney disease Social History Alcohol intake: current Comment: Rare Patient Tobacco Use Status: Never used Tobacco Review of Systems Const All systems reviewed & are unremarkable except as noted in HPI and below Physical Exam Const General: comfortable and no acute distress Orientation/consciousness: patient oriented x3 HEENT Head: Yes normocephalic Mouth: Normal oral and palatal mucosa present Eyes EOM: EOMs intact bilaterally Neck Neck: Yes supple Resp Auscultation: clear to auscultation bilaterally Cardio Jugular venous distension: no JVD Rate: regular rate GI Palpation (GI): Soft to palpation Auscultation: normal bowel sounds General: Yes no CVA tenderness Back/Spine/Pelvis Back: no CVA tenderness Skin General skin exam: no rashes or lesions noted Neuro General: patient oriented x3 and moves all extremities Extrem General: Yes no pedal edema Assessment & Plan Assessment & Plan (1) CKD stage 3a, GFR 45-59 ml/min: Code(s): N18.31 - Chronic kidney disease, stage 3a Category: Medical (2) Renal stone: Code(s): N20.0 - Calculus of kidney Category: Medical (3) Hypertension: Code(s): I10 - Essential (primary) hypertension Category: Medical Qualifiers: Hypertension type: primary hypertension Qualified Code(s): I10 - Essential (primary) hypertension (4) Renal neoplasm: Code(s): D49.519 - Neoplasm of unspecified behavior of unspecified kidney Category: Medical Plan Yazan has CKD. His last serum creatinine remains close to baseline . His Olmesartan had been on hold which I plan to restart 5 mg daily with time. He is trying to lose the weight and be strict with low-sodium diet .He had no relapse of renal stone disease. His mother had ESRD and was on dialysis. He avoids nonsteroidal anti-inflammatories and maintain good hydration. He will benefit from some weight loss. He is tolerating statins and Jardiance & GLP 1 . I did not make any other medication changes today. However follow-up blood work was ordered .Answered all questions Orders: Orders Electrolytes 6 Months D49.519 - Neoplasm of unspecified behavior of unspecified kidney, I10 - Essential (primary) hypertension, N18.31 - Chronic kidney disease, stage 3a, N20.0 - Calculus of kidney Blood Urea Nitrogen 6 Months D49.519 - Neoplasm of unspecified behavior of unspecified kidney, I10 - Essential (primary) hypertension, N18.31 - Chronic kidney disease, stage 3a, N20.0 - Calculus of kidney Creatinine 6 Months D49.519 - Neoplasm of unspecified behavior of unspecified kidney, I10 - Essential (primary) hypertension, N18.31 - Chronic kidney disease, stage 3a, N20.0 - Calculus of kidney Protein Creatinine Ratio, Ur 6 Months D49.519 - Neoplasm of unspecified behavior of unspecified kidney, I10 - Essential (primary) hypertension, N18.31 - Chronic kidney disease, stage 3a, N20.0 - Calculus of kidney UA and rflx microscopic 6 Months D49.519 - Neoplasm of unspecified behavior of unspecified kidney, I10 - Essential (primary) hypertension, N18.31 - Chronic kidney disease, stage 3a, N20.0 - Calculus of kidney Coding Level of Care Code Est Pt Level 4 (80269) Diagnoses CKD stage 3a, GFR 45-59 ml/min N18.31 Renal stone N20.0 Primary hypertension I10 Hypertension type: primary hypertension Renal neoplasm D49.519
[2025-08-22 09:28] VITALS: BP 130/70; PULSE 63; O2SAT 98; BMI 41.7
--- OUTSIDE RECORDS SUMMARY | 2025-08-22 10:37 | XMS_ITS | Encounter Summary ---
Author Organization [facility] Address [address] [place] [address] Care Team Providers Care Track Vehicle Repairer Name Role Phone Eugenio Suárez MD Primary Care Provider [phone] Encounter Details Date Type Department Care Team (Late st Contact Info) Description 05/01/2025 Lab Requisition [facility] Main Lab [address] [place] [address] Charley Thomas, BUSINESS DEVELOPMENT ENGINEER [address] [facility] [address] [place] [address] Gross hematuria Social History Tobacco Use Types Packs/Day Years Used Date Smoking Tobacco: Never Smokeless Tobacco: Never Alcohol Use Standard Drinks/Week Comments Yes 0 (1 standard drink = 0.6 oz pur e alcohol) Interpersonal Safety Answer Date Record ed Physical Abuse Unrecognized value 08/07/2024 Verbal Abuse Unrecognized value 08/07/2024 Sex and Gender Information Value Date Recorded Sex Assigned at Not on file Legal Sex Male 6:52 PM EDT Gender Identity Not on file Sexual Orientation Not on file documented as of this encounter Plan of Treatment Not on file documented as of this encounter Procedures Procedure Name Priority Date/Time Associated Diagnosis Comments URINALYSIS WITH REFLEX MICROSCOPIC AND CULTURE Routine 05/01/2025 10:30 AM EDT Gross hematuria URINALYSIS WITH REFLEX MICROSCOPIC AND CULTURE Routine 05/01/2025 10:30 AM EDT Gross hematuria CULTURE URINE Routine 05/01/2025 10:30 AM EDT Gross hematuria documented in this encounter Results * Culture urine (05/01/2025 10:30 AM EDT) Culture, Urine Multiple bacterial morphotypes present consistent with either contamination or urogenital merna. Suggest repeat specimen, if clinically indicated. 05/03/2025 11:03 AM EDT [facility] Urine Urine specimen obtained by clean catch procedure / Unknown 05/01/2025 10:30 AM EDT 05/01/2025 9:53 PM EDT us Charley Thomas NP LAB MICROBIOLOGY - GENERAL ORD ERABLES Final Result [facility] [address] [place] [address], [place] [phone] * (ABNORMAL) Urinalysis with reflex microscopic and culture (05/01/2025 10:30 AM EDT) Color, Urine Yellow Yellow, Colorless LAB URINALYSIS - AUTOMATED METHOD 05/01/2025 9:53 PM EDT [facility] Clarity, Urine Hazy(A) Clear LAB URINALYSIS - AUTOMATED METHOD 05/01/2025 9:53 PM EDT [facility] Specific [place] Urine 1.024 1.005 - 1.030 LAB URINALYSIS - AUTOMATED METHOD 05/01/2025 9:53 PM EDT [facility] pH, Urine 5.0(A) 5.0 - 8.0 pH LAB URINALYSIS - AUTOMATED METHOD 05/01/2025 9:53 PM EDT [facility] Leukocytes, Urine Negative Negative WBCs/mcL LAB URINALYSIS - AUTOMATED METHOD 05/01/2025 9:53 PM EDT [facility] Nitrite, Urine Negative Negative LAB URINALYSIS - AUTOMATED METHOD 05/01/2025 9:53 PM EDT [facility] Protein, Urine Negative Negative mg/dL LAB URINALYSIS - AUTOMATED METHOD 05/01/2025 9:53 PM EDT [facility] Glucose, Urine >500(A) Negative mg/dL LAB URINALYSIS - AUTOMATED METHOD 05/01/2025 9:53 PM EDT [facility] Ketones, Urine Negative Negative mg/dL LAB URINALYSIS - AUTOMATED METHOD 05/01/2025 9:53 PM EDT [facility] Blood, Urine Large(A) Negative mg/dL LAB URINALYSIS - AUTOMATED METHOD 05/01/2025 9:53 PM EDT [facility] RBC, Urine 135(H) 0 - 3 /HPF LAB URINALYSIS - AUTOMATED METHOD 05/01/2025 9:53 PM EDT [facility] WBC, Urine 14(H) 0 - 5 /HPF LAB URINALYSIS - AUTOMATED METHOD 05/01/2025 9:53 PM EDT [facility] Squamous Epithelial, Urine 31(H) 0 - 5 /HPF LAB URINALYSIS - AUTOMATED METHOD 05/01/2025 9:53 PM EDT [facility] Mucus, Urine Present(A) Not Present /HPF LAB URINALYSIS - AUTOMATED METHOD 05/01/2025 9:53 PM EDT [facility] Urine Urine specimen obtained by clean catch procedure / Unknown 05/01/2025 10:30 AM EDT 05/01/2025 9:15 PM EDT us Charley Thomas BUSINESS DEVELOPMENT ENGINEER LAB URINE ORDERABLES Final Res ult [facility] [address] [place] [address], [place] [phone] documented in this encounter Visit Diagnoses Diagnosis Gross hematuria documented in this encounter Care Teams Track Vehicle Repairer Relationship Specialty Start Date End Date Eugenio Suárez MD [address] [address] [place] [address] PCP - General Internal Medicine 04/18/25 documented as of this encounter
--- OUTSIDE RECORDS SUMMARY | 2025-08-22 10:37 | XMS_ITS | Clinical Summary ---
Author Organization [facility] Address [address] [place] [address] Care Team Providers Care Store Sales Leader Name Role Phone Eugenio Suárez MD Primary Care Provider [phone] Allergies Active Allergy Reactions Criticality Noted Date [...] 1 tablet by mouth daily. 0 Active [place]-3 Fatty Acids (FISH OIL PO) Take 2 [...] often do you attend chur ch or alevism services? Never 01/20/2024 Do you belong to any clubs o r organizations such as scientologist groups, unions, fraternal or athletic groups, or [...] place to sleep or slept in a longterm (including now)? No 01/20/2024 Sex and Gender [...] 58 08/16/2024 8:51 AM EST Temperature 36.5 C (97.7 F) 06/30/2024 7:27 AM EDT Respiratory Rate 20 06/30/2024 9:20 AM EDT [...] C Screening 1955 Diabetes: Foot Exam 1971 Shingrix-Zoster Vaccine (2 of 2) 09/16/2024 07/22/2024 [...] 08/2 , 11/09/2023, 05/07/2023, Additional history exists COVID-19 Vaccine ( season) 2025 07/03/2024, 06/23/2023, 07/23/2022, Additional history exists Influenza Vaccine (#1) 2025 , 06/23/2023, 06/23/2023, Additional history exists Colon Cancer Screening (Colonoscopy) 06/30/2034 06/30/2024 DTap / Tdap / Td (2 - Td or Tdap) 08/17/2034 08/17/2024 RSV Adult > 60+ Yrs or Completed 07/13/2024 Pneumococcal Vaccine Completed 07/20/2024 Hepatitis B Vaccines Aged Out No long er eligible based on patient's age to complete this topic RSV Ped < 20 months Aged Out No longe r eligible based on patient's age to complete this topic Medical Devices Implanted Type Area Sports Broadcaster Device Identifier Shelf Expiration Date Model / Serial / Lot Component Patellar All Poly Od35 Mm Psn - [id number] - [id number] Implanted:Qty: 1 on 02/05/2017 by Federico Deluca MD at [facility] [place] [facility] Left: Knee [employer] 12/26/2024 [id number] / / [id number] Psn Asf Cps 12mm Ve L 07-08 Ef - [id number] - [id number] Implanted:Qty: 1 on 02/05/2017 by Federico Deluca MD at [facility] and [facility] Left: Knee [employer] 03/27/2021 [id number] / / [id number] Stem Extension Persona Taper L30 Mm Od14 Mm - [id number] - [id number] Implanted:Qty: 1 on 02/05/2017 by Federico Deluca MD at [facility] and [facility] Left: Knee [employer] 01/25/2027 [id number] / / [id number] Baseplate Tibial Persona Tivanium 5 D F Knee Left Cemented S - [id number] - [id number] Implanted:Qty: 1 on 02/05/2017 by Federico Deluca MD at [facility] and [facility] Left: Knee [employer] 12/26/2026 [id number] / / [id number] Psn Fem Ps Cmt Ccr Std Sz10 L - [id number] - [id number] Implanted:Qty: 1 on 02/05/2017 by Federico Deluca MD at [facility] and [facility] Left: Knee [employer] 05/28/2026 [id number] / / [id number] Cement Palacos R Bone 40 - [id number] - [id number] Implanted:Qty: 1 on 02/05/2017 by Federico Deluca MD at [facility] and [facility] Left: Knee [employer] 06/08/2021 [id number] / / [id number] Cement Palacos R Bone 40gm - [id number] - [id number] Implanted:Qty: 1 on 02/05/2017 by Federico Deluca MD at [facility] and [facility] Left: Knee [employer] 06/08/2021 [id number] / / [id number] Cap Pricing Persona Beni Fem\Beni Tib Cps Ve Surf Std Pat - [id number] - [id number] Implanted:Qty: 1 on 02/05/2017 by Federico Deluca MD at [facility] and [facility] Left: Knee [employer] [id number] / / Advance Directives For more information, please contact: [phone] Latest Code Status on File Code Status [...] 05/02/2016 2:39 PM 05/02/2016 7:41 PM This c ode status was ascertained in the following way: discussion with patient. Care Teams Store Sales Leader Relationship Specialty Start Date End Date Eugenio Suárez MD PCP - General Internal Medicine 05/01/15
--- OUTSIDE RECORDS SUMMARY | 2025-08-22 10:37 | XMS_ITS ---
Author Name [facility] Organization Unknown Results Test Name/Text Value Interpretation Date Range Source POCT CREATININE 1.7 mg/dL Above high normal 08/04/2025 0.6 - 1.2 [facility] ISTAT SAMPLE TYPE VENOUS 08/04/2025 [facility] HbA1c MFr Bld 6.8 % Above high normal 06/23/2025 - 5.7 [facility] Prot SerPl-mCnc 7.2 g/dL Normal 06/23/2025 6.1 - 8.[address] BUN/Creat SerPl 14.0 (calc) Normal 06/23/2025 6 - 22 [facility] Glucose SerPl-mCnc 130.0 mg/dL Above high normal 06/23/2025 65 - 99 [facility] CO2 SerPl-sCnc 24.0 mmol/L Normal 06/23/2025 20 - 32 [facility] Globulin Ser Calc-mCnc 3.4 g/dL (calc) Normal 06/23/2025 1.9 - 3.7 [facility] Creat SerPl-mCnc 1.4 mg/dL Above high normal 06/23/2025 0.7 - 1.28 [facility] eGFRcr SerPlBld CKD-EPI 2020 53.0 mL/min/1.73m2 Below low normal 06/23/2025 - [facility] AST SerPl-cCnc 47.0 U/L Above high normal 06/23/2025 10 - 3 5 [facility] Sodium SerPl-sCnc 138.0 mmol/L Normal 06/23/2025 135 - 14 6 [facility] Albumin SerPl-mCnc 3.8 g/dL Normal 06/23/2025 3.6 - 5.1 [facility] BUN SerPl-mCnc 20.0 mg/dL Normal 06/23/2025 7 - [address] Calcium SerPl-mCnc 8.9 mg/dL Normal 06/23/2025 8.6 - 10.3 [facility] Albumin/Glob SerPl 1.1 (calc) Normal 06/23/2025 1 - 2.5 [facility] ALT SerPl-cCnc 39.0 U/L Normal 06/23/2025 9 - 46 [facility] Chloride SerPl-sCnc 104.0 mmol/L Normal 06/23/2025 98 - 1 10 [facility] Potassium SerPl-sCnc 4.4 mmol/L Normal 06/23/2025 3.5 - 5.3 [facility] ALP SerPl-cCnc 128.0 U/L Normal 06/23/2025 35 - 144 [facility] Bilirub SerPl-mCnc 0.5 mg/dL Normal 06/23/2025 0.2 - 1.2 [facility] AFP-TM SerPl-mCnc 1.7 ng/mL Normal 06/23/2025 - 6.1 [facility] HCV Ab SerPl Ql IA NON-REACTIVE Normal 06/23/2025 - [facility] HBV surface Ag SerPl Ql IA NON-REACTIVE Normal 06/23/2025 - [facility] NonHDLc SerPl-mCnc 105.0 mg/dL (calc) Normal 06/23/2025 - 130 [facility] Cholest SerPl-mCnc 145.0 mg/dL Normal 06/23/2025 - 200 [facility] Trigl SerPl-mCnc 94.0 mg/dL Normal 06/23/2025 - 150 Q [facility] Cholest/HDLc SerPl 3.6 (calc) Normal 06/23/2025 - 5 [facility] HDLc SerPl-mCnc 40.0 mg/dL Normal 06/23/2025 - [facility] LDLc SerPl Calc-mCnc 86.0 mg/dL (calc) Normal 06/23/2025 [facility] HBV surface Ab SerPl IA-aCnc <5 Below low normal 06/23/2025 - [facility] HBV core Ab SerPl Ql IA NON-REACTIVE Normal 06/23/2025 - [facility] Prothrombin time 10.4 sec Normal 06/23/2025 9 - 11.5 [facility] INR PPP 1.0 Normal 06/23/2025 [facility] Creat Bld-mCnc 1.5 mg/dL Above high normal 04/25/2025 0.7 - 1.3 [facility] eGFRcr SerPlBld CKD-EPI 2020 46.0 mL/min/1.73m2 04/25/2025 [facility] Glucose Bld-mCnc 158.0 mg/dL Normal 08/09/2024 70 - 199 [facility] Glucose Bld-mCnc 135.0 mg/dL Normal 08/09/2024 70 - 199 [facility] Glucose Bld-mCnc 167.0 mg/dL Normal 08/09/2024 70 - 199 [facility] Glucose Bld-mCnc 149.0 mg/dL Normal 08/08/2024 70 - 199 [facility] Glucose Bld-mCnc 157.0 mg/dL Normal 08/08/2024 70 - 199 [facility] Glucose Bld-mCnc 133.0 mg/dL Normal 08/08/2024 70 - 199 [facility] Creat SerPl-mCnc 1.6 mg/dL Above high normal 08/08/2024 0.7 - 1.3 [facility] Chloride SerPl-sCnc 103.0 mmol/L Normal 08/08/2024 98 - 1 07 [facility] eGFRcr SerPlBld CKD-EPI 2020 46.0 mL/min/1.73m2 Below low normal 08/08/2024 - [facility] Sodium SerPl-sCnc 136.0 mmol/L Normal 08/08/2024 135 - 14 5 [facility] BUN SerPl-mCnc 31.0 mg/dL Above high normal 08/08/2024 9 - 2 0 [facility] CO2 SerPl-sCnc 26.0 mmol/L Normal 08/08/2024 24 - 32 [facility] BUN/Creat SerPl 19.4 Normal 08/08/2024 12 - 20 [facility] Potassium SerPl-sCnc 4.0 mmol/L Normal 08/08/2024 3.5 - 5.1 [facility] Calcium SerPl-mCnc 9.1 mg/dL Normal 08/08/2024 8.4 - 10.2 [facility] Anion Gap SerPl-sCnc 7.0 Normal 08/08/2024 5 - 14 [facility] Glucose SerPl-mCnc 127.0 mg/dL Normal 08/08/2024 70 - 199 [facility] Glucose Bld-mCnc 150.0 mg/dL Normal 08/08/2024 70 - 199 [facility] Glucose Bld-mCnc 129.0 mg/dL Normal 08/07/2024 70 - 199 [facility] Glucose Bld-mCnc 145.0 mg/dL Normal 08/07/2024 70 - 199 [facility] Glucose Bld-mCnc 135.0 mg/dL Normal 08/07/2024 70 - 199 [facility] Phosphate SerPl-mCnc 3.3 mg/dL Normal 08/07/2024 2.5 - 4.5 [facility] Magnesium SerPl-mCnc 2.3 mg/dL Normal 08/07/2024 1.7 - 2.8 [facility] Anion Gap SerPl-sCnc 7.0 Normal 08/07/2024 5 - 14 [facility] Chloride SerPl-sCnc 103.0 mmol/L Normal 08/07/2024 98 - 1 07 [facility] Creat SerPl-mCnc 1.4 mg/dL Above high normal 08/07/2024 0.7 - 1.3 [facility] eGFRcr SerPlBld CKD-EPI 2020 54.0 mL/min/1.73m2 Below low normal 08/07/2024 - [facility] Sodium SerPl-sCnc 138.0 mmol/L Normal 08/07/2024 135 - 14 5 [facility] Calcium SerPl-mCnc 9.4 mg/dL Normal 08/07/2024 8.4 - 10.2 [facility] Potassium SerPl-sCnc 3.4 mmol/L Below low normal 08/07/2024 3.5 - 5.1 [facility] Glucose SerPl-mCnc 102.0 mg/dL Normal 08/07/2024 70 - 199 [facility] BUN SerPl-mCnc 33.0 mg/dL Above high normal 08/07/2024 9 - 2 0 [facility] CO2 SerPl-sCnc 28.0 mmol/L Normal 08/07/2024 24 - 32 [facility] BUN/Creat SerPl 23.6 Above high normal 08/07/2024 12 - 20 [facility] RDW RBC Auto-Rto 16.5 % Normal 08/07/2024 12.1 - 17.7 [facility] MCHC RBC Auto-mCnc 33.7 g/dL Normal 08/07/2024 32 - 36 [facility] Lymphocytes/leuk NFr Bld Auto 20.0 % Normal 08/07/2024 20 - 48 [facility] MCV RBC Auto 93.8 FL Normal 08/07/2024 78 - 100 [facility] Lymphocytes # Bld Auto 1.9 K/mcL Normal 08/07/2024 1 - 3.2 [facility] Basophils # Bld Auto 0.1 K/mcL Normal 08/07/2024 0 - 0.2 [facility] PMV Bld Auto 8.5 FL Normal 08/07/2024 7.4 - 11.4 [facility] Monocytes # Bld Auto 0.6 K/mcL Normal 08/07/2024 0 - 0.8 [facility] Hgb Bld-mCnc 12.8 g/dL Below low normal 08/07/2024 13.5 - 18 [facility] Eosinophil/leuk NFr Bld Auto 2.3 % Normal 08/07/2024 0 - 6 [facility] Hct VFr Bld Auto 37.8 % Below low normal 08/07/2024 40 - 54 [facility] Eosinophil # Bld Auto 0.2 K/mcL Normal 08/07/2024 0 - 0.5 [facility] Monocytes/leuk NFr Bld Auto 6.6 % Normal 08/07/2024 2 - 12 [facility] MCH RBC Qn Auto 31.6 pcg Normal 08/07/2024 25 - 33 [facility] Neutrophils/leuk NFr Bld Auto 70.6 % Normal 08/07/2024 44 - 74 [facility] WBC # Bld Auto 9.7 K/mcL Normal 08/07/2024 4 - 10.5 [facility] Neutrophils # Bld Auto 6.8 K/mcL Normal 08/07/2024 1.8 - 7.8 [facility] Basophils/leuk NFr Bld Auto 0.5 % Normal 08/07/2024 0 - 2 [facility] Platelet # Bld Auto 144.0 K/mcL Below low normal 08/07/2024 150 - 450 [facility] RBC # Bld Auto 4.03 M/mcL Below low normal 08/07/2024 4.7 - 6 [facility] Glucose Bld-mCnc 151.0 mg/dL Normal 08/07/2024 70 - 199 [facility] Rh Bld Positive Normal 08/06/2024 [facility] ABO Group Bld O Normal 08/06/2024 [facility] Bld gp Ab Scn SerPl Ql Negative Normal 08/06/2024 [facility] Creat SerPl-mCnc 1.8 mg/dL Above high normal 08/06/2024 0.7 - 1.3 [facility] Potassium SerPl-sCnc 4.9 mmol/L Normal 08/06/2024 3.5 - 5.1 [facility] Prot SerPl-mCnc 8.4 g/dL Normal 08/06/2024 6.4 - 8.5 [facility] ALT SerPl-cCnc 33.0 unit/L Normal 08/06/2024 7 - 52 [facility] Bilirub SerPl-mCnc 0.9 mg/dL Normal 08/06/2024 0.3 - 1 [facility] eGFRcr SerPlBld CKD-EPI 2020 40.0 mL/min/1.73m2 Below low normal 08/06/2024 - [facility] Glucose SerPl-mCnc 125.0 mg/dL Normal 08/06/2024 70 - 199 [facility] AST SerPl-cCnc 65.0 unit/L Above high normal 08/06/2024 5 - 40 [facility] CO2 SerPl-sCnc 25.0 mmol/L Normal 08/06/2024 24 - 32 [facility] Anion Gap SerPl-sCnc 10.0 Normal 08/06/2024 5 - 14 [facility] BUN SerPl-mCnc 39.0 mg/dL Above high normal 08/06/2024 9 - 2 0 [facility] Calcium SerPl-mCnc 9.6 mg/dL Normal 08/06/2024 8.4 - 10.2 [facility] Chloride SerPl-sCnc 101.0 mmol/L Normal 08/06/2024 98 - 1 07 [facility] BUN/Creat SerPl 21.7 Above high normal 08/06/2024 12 - 20 [facility] ALP SerPl-cCnc 124.0 unit/L Above high normal 08/06/2024 34 - 104 [facility] Albumin SerPl-mCnc 4.1 g/dL Normal 08/06/2024 3.5 - 5 [facility] Sodium SerPl-sCnc 136.0 mmol/L Normal 08/06/2024 135 - 14 5 [facility] PT Bld 11.8 sec Normal 08/06/2024 10.5 - 13.3 [facility] INR PPP 1.0 Normal 08/06/2024 0.8 - 1.1 [facility] aPTT PPP 32.5 sec Normal 08/06/2024 25 - 37 [facility] MCV RBC Auto 94.0 FL Normal 08/06/2024 78 - 100 [facility] RBC # Bld Auto 4.3 M/mcL Below low normal 08/06/2024 4.7 - 6 [facility] PMV Bld Auto 8.8 FL Normal 08/06/2024 7.4 - 11.4 [facility] Lymphocytes/leuk NFr Bld Auto 16.0 % Below low normal 08/06/2024 20 - 48 [facility] RDW RBC Auto-Rto 16.3 % Normal 08/06/2024 12.1 - 17.7 [facility] Hgb Bld-mCnc 13.7 g/dL Normal 08/06/2024 13.5 - 18 [facility] Basophils/leuk NFr Bld Auto 0.8 % Normal 08/06/2024 0 - 2 [facility] Platelet # Bld Auto 148.0 K/mcL Below low normal 08/06/2024 150 - 450 [facility] Neutrophils # Bld Auto 6.2 K/mcL Normal 08/06/2024 1.8 - 7.8 [facility] Eosinophil/leuk NFr Bld Auto 1.8 % Normal 08/06/2024 0 - 6 [facility] MCH RBC Qn Auto 31.9 pcg Normal 08/06/2024 25 - 33 [facility] Neutrophils/leuk NFr Bld Auto 75.5 % Above high normal 08/06/2024 44 - 74 [facility] Basophils # Bld Auto 0.1 K/mcL Normal 08/06/2024 0 - 0.2 [facility] Hct VFr Bld Auto 40.5 % Normal 08/06/2024 40 - 54 [facility] Monocytes # Bld Auto 0.5 K/mcL Normal 08/06/2024 0 - 0.8 [facility] MCHC RBC Auto-mCnc 33.9 g/dL Normal 08/06/2024 32 - 36 [facility] Lymphocytes # Bld Auto 1.3 K/mcL Normal 08/06/2024 1 - 3.2 [facility] Eosinophil # Bld Auto 0.1 K/mcL Normal 08/06/2024 0 - 0.5 [facility] Monocytes/leuk NFr Bld Auto 5.9 % Normal 08/06/2024 2 - 12 [facility] WBC # Bld Auto 8.2 K/mcL Normal 08/06/2024 4 - 10.5 [facility] LACTIC ACID 1.8 mmol/L Normal 08/06/2024 0.5 - 2.2 [facility] GLUCOSE BLDC GLUCOMTR MCNC 118.0 mg/dL Normal 06/30/2024 70 - 199 [facility] CRYSTALS SNV MICRO NO CRYSTALS SEEN Normal 05/12/2024 [facility] SYNOVIOCYTES NFR SNV 5.0 /100 WBC Normal 05/12/2024 [facility] UNIDENT CELLS NFR SNV 0.0 /100 WBC Normal 05/12/2024 [facility] POLYS NFR SNV MANUAL 0.0 % Normal 05/12/2024 [facility] MONONUC CELLS NFR SNV MANUAL 61.0 % Normal 05/12/2024 [facility] RBC NO. SNV MANUAL 5788.0 /UL Normal 05/12/2024 [facility] SPECIMEN SOURCE FLD LEFT KNEE Normal 05/12/2024 [facility] CRP SERPL MCNC 1.3 mg/dL Above high normal 02/09/2024 - 0.9 [facility] ESR Bld Qn Photometric 33.0 mm/h Above high normal 02/09/2024 0 - 15 [facility] LYMPHOCYTES NO. BLD AUTO 1.8 K/uL Normal 02/09/2024 1 - 3.2 [facility] NEUTROPHILS NFR BLD AUTO 69.1 % Normal 02/09/2024 44 - 74 [facility] HGB BLD MCNC 12.6 g/dL Below low normal 02/09/2024 13.5 - 18 [facility] PLATELET NO. BLD AUTO 141.0 K/uL Below low normal 02/09/2024 150 - 450 [facility] MONOCYTES NO. BLD AUTO 0.5 K/uL Normal 02/09/2024 0 - 0.8 [facility] NEUTROPHILS NO. BLD AUTO 5.8 K/uL Normal 02/09/2024 1.8 - 7.8 [facility] BASOPHILS NFR BLD AUTO 0.8 % Normal 02/09/2024 0 - 2 [facility] MCV RBC AUTO 97.8 fL Normal 02/09/2024 78 - 100 [facility] LYMPHOCYTES NFR BLD AUTO 21.7 % Normal 02/09/2024 20 - 48 [facility] DIFFERENTIAL TYPE AUTOMATED Normal 02/09/2024 [facility] MONOCYTES NFR BLD AUTO 5.5 % Normal 02/09/2024 2 - 12 [facility] MCH RBC QN AUTO 33.1 pg Above high normal 02/09/2024 25 - 33 [facility] RBC NO. BLD AUTO 3.81 M/uL Below low normal 02/09/2024 4.7 - 6 [facility] PMV BLD AUTO 8.9 fL Normal 02/09/2024 7.4 - 11.4 [facility] EOSINOPHIL NO. BLD AUTO 0.2 K/uL Normal 02/09/2024 0 - 0.5 [facility] MCHC RBC AUTO MCNC 33.9 g/dL Normal 02/09/2024 32 - 36 [facility] WBC NO. BLD AUTO 8.3 K/uL Normal 02/09/2024 4 - 10.5 [facility] EOSINOPHIL NFR BLD AUTO 2.9 % Normal 02/09/2024 0 - 6 [facility] BASOPHILS IN BLOOD BY AUTOMATED COUNT 0.1 K/uL Normal 02/09/2024 0 - 0.2 [facility] HCT VFR BLD AUTO 37.2 % Below low normal 02/09/2024 40 - 54 [facility] RDW RBC AUTO RTO 16.1 % Normal 02/09/2024 12.1 - 17.7 [facility] History of Medication Use Medication Directions Dispensed Refills Start Date End Date Status diphenhydrAMINE (BenadryL) 25 mg capsule Take 1 capsule (25 mg total) by mouth See admin instructions. [address] scan 5 active predniSONE (DELTASONE) 50 mg tablet Take 1 tablet (50 mg total) by mouth See admin instructions for 10 days. Take at 13 hours, 7 hours, and [address] your [address] scan 5 active iopamidoL (ISOVUE-370) 370 mg iodine /mL (76 %) injection 90 mL 90 mL, intravenous, Once in imaging, Starting on Nava 04/20/25 at 1514, For 1 dose 5 04/20/20 25 completed sodium chloride 0.9 % flush 10 mL 10 mL, intravenous, Once, On Nava 04/20/25 at 1530, For 1 dose 5 04/20/20 25 completed sodium chloride 0.9 % intravenous solution 50 mL 50 mL, intravenous, Once in imaging, Starting on Nava 04/20/25 at 1514, For 1 dose 5 04/20/20 25 completed Ultra-Fine Pen Needle 31 gauge x 3/16 needle USE WITH TRESIBA 1X/DAY E11/9 90 DAY 5 active allopurinol 300 mg tablet TAKE 1 TABLET BY MOUTH EVERY DAY 4 active atorvastatin 10 mg tablet TAKE 1 TABLET BY MOUTH EVERY DAY 4 active torsemide 20 mg tablet TAKE 1 TABLET BY MOUTH EVERY OTHER DAY 4 active methocarbamoL (ROBAXIN) 500 mg tablet Take 1 tablet (500 mg total) by mouth 3 (three) times a day. 06/17/20 aborted acetaminophen (TYLENOL) 325 mg tablet Take 2 tablets (650 mg total) by mouth every 8 (eight) hours for 10 days. 08/20/20 active polyethylene glycol (MIRALAX) 17 gram packet Take 17 g by mouth 1 (one) time each day for 5 days. 4 08/16/20 active oxyCODONE (ROXICODONE) immediate release tablet 5 mg [Order 1 Start] Name: oxyCODONE (ROXICODONE) immediate release tablet 5 mg Signed Summary: 5 mg, oral, Every 4 hours PRN, moderate pain, Starting on 08/08/24 at 0516 [Order 1 End] [Order 2 Start] Name: oxyCODONE (ROXICODONE) immediate release tablet 10 mg Signed Summary: 10 mg, oral, Every 4 michael active methocarbamoL (ROBAXIN) 500 mg tablet Take 1 tablet (500 mg total) by mouth 3 (three) times a day. 08/23/20 active oxyCODONE (ROXICODONE) 5 mg immediate release tablet Take 1 tablet (5 mg total) by mouth every 4 (four) hours if needed for moderate pain for up to 3 days. Max Daily Amount: 30 mg 4 08/13/20 active oxyCODONE (ROXICODONE) immediate release tablet 10 mg 10 mg, oral, Every 4 hours PRN, severe pain, Starting on 08/06/24 at 2328 08/08/20 aborted buPROPion (WELLBUTRIN) tablet 300 mg 300 mg, oral, Once, On 08/07/24 at 0700, For 1 dose 4 08/07/20 completed potassium chloride (KLOR-CON M20) CR tablet 20 mEq 20 mEq, oral, Once, On 08/07/24 at 0915, For 1 dose, Tablet may be swallowed whole (do not crush/chew/suck on) OR broken in half and each half swallowed separately OR dissolved (whole tablet) in ~4 ounces of water (allow ~2 minutes to dissolve, stir well and administer immediately). 4 08/07/20 24 completed albuterol 2.5 mg /3 mL (0.083 %) nebulizer solution 2.5 mg 2.5 mg, nebulization, Every 6 hours, First dose on 08/06/24 at 2319 4 active atorvastatin (LIPITOR) tablet 10 mg 10 mg, oral, Nightly, First dose on 08/06/24 at 2329 4 active dextrose (D50W) 50% injection 12.5 g 12.5 g, intravenous, Every 15 min PRN, low blood sugar, moderate hypoglycemia *Patient is Unconscious, NPO, unable to swallow: BG 54 - 69 mg/dl*, Starting on 08/06/24 at 2319 4 active dextrose (D50W) 50% injection 25 g 25 g, intravenous, Every 15 min PRN, low blood sugar, severe hypoglycemia *Patient is Unconscious, NPO, unable to swallow: BG LESS than 54 mg/dL*, Starting on 08/06/24 at 2319 4 active dextrose 15 gram/60 mL oral solution 15 g 15 g, oral, Every 15 min PRN, low blood sugar, hypoglycemia *Patient conscious AND able to drink and swallow safely*, Starting on 08/06/24 at 2319 4 active dextrose 15 gram/60 mL oral solution 30 g 30 g, oral, Every 15 min PRN, low blood sugar, hypoglycemia *Patient conscious AND able to drink and swallow safely*, Starting on 08/06/24 at 2319 4 active docusate sodium (COLACE) capsule 100 mg 100 mg, oral, Every 12 hours PRN, constipation, Starting on 08/06/24 at 2328 4 active enoxaparin (LOVENOX) injection 30 mg 30 mg, subcutaneous, Every 12 hours, First dose (after last modification) on 08/07/24 at 0900, Indication: VTE/PE Prophylaxis 4 active Glucagon HCl (rDNA) injection 1 mg 1 mg, intramuscular, Once as needed, low blood sugar, severe hypoglycemia, Starting on 08/06/24 at 2319, For 1 dose 4 active insulin lispro injection 2-12 Units 2-12 Units, subcutaneous, 3 times daily before meals, First dose (after last reorder) on 08/07/24 at 0730, Indication: Total Daily Dose (TDD) 40 - 80 units. Correction Scale: Moderate Dose Administer with meal and/or mealtime dose of insulin to correct high blood glucose If mealtime insulin dos 4 active insulin regular (HumuLIN R) injection 2-12 Units 2-12 Units, subcutaneous, Nightly, First dose on 08/06/24 at 2352, Indication: Total Daily Dose (TDD) 40 - 80 units 4 active metoprolol tartrate (LOPRESSOR) tablet 25 mg 25 mg, oral, 2 times daily, First dose (after last reorder) on 08/06/24 at 2341 4 active pantoprazole (PROTONIX) EC tablet 40 mg 40 mg, oral, Daily, First dose on 08/07/24 at 0900, Do not crush, chew, or split. 4 active vitamin A & D ointment Topical, Daily PRN, dry skin, Starting on 08/07/24 at 1125, Apply to Lower extremities 4 active lidocaine (PF) (XYLOCAINE-MPF) 1 % injection 10 mL 10 mL, infiltration, Once, On 08/06/24 at 1850, For 1 dose 4 08/07/20 completed morphine injection 4 mg 4 mg, intravenous, Once, On 08/06/24 at 1811, For 1 dose 4 08/06/20 completed ondansetron (PF) (ZOFRAN) injection 4 mg 4 mg, intravenous, Once, On 08/06/24 at 1646, For 1 dose 4 08/06/20 24 completed sodium chloride 0.9 % bolus 500 mL 500 mL, intravenous, at 1,000 mL/hr, Administer over 30 Minutes, Once, On 08/06/24 at 1456, For 1 dose 4 08/06/20 24 completed metoprolol tartrate 50 mg tablet TAKE 1 TABLET BY MOUTH TWICE A DAY 4 02/23/20 25 active escitalopram 10 mg tablet TAKE 1 TABLET BY MOUTH EVERY DAY active sodium chloride 0.9% (NS) infusion 25 mL/hr, Intravenous, Continuous, Starting on Nava 06/30/24 at 0730, Pre-ProcedureSTA RT AT KVO (25 ML/HR) PRE-PROCEDURE; DURING PROCEDURE INCREASE RATE TO 300 ML/HR UNTIL 500 ML INFUSED. 4 active bupropion HCl XL 150 mg 24 hr tablet, extended release Take 1 tablet (150 mg total) by mouth daily. in the morning 4 active atorvastatin (LIPITOR) tablet 10 mg TAKE 1 TABLET BY MOUTH EVERY DAY 4 active buPROPion (WELLBUTRIN XL) 150 MG 24 hr tablet Take 1 tablet (150 mg total) by mouth daily. in the morning 4 active torsemide (DEMADEX) 20 MG tablet Take 1 tablet (20 mg total) by mouth every other day. active Clenpiq 10 mg-3.5 gram-12 gram/160 mL oral solution Take 1 Bottle by mouth 2 (two) times a day. 4 02/23/20 25 completed Sod Picosulfate-Mag Ox-Cit Acd (Clenpiq) 10-3.5-12 MG-GM -GM/160ML SOLN Take 1 Bottle by mouth 2 (two) times a day. active Sod Picosulfate-Mag Ox-Cit Acd (Clenpiq) 10-3.5-12 MG-GM -GM/160ML SOLN Take 1 Bottle by mouth 2 (two) times a day. active amoxicillin 500 mg capsule Take 1 capsule (500 mg total) by mouth 3 (three) times a day for 7 days. 4 05/10/20 24 completed olmesartan 5 mg tablet TAKE 1 TABLET (5 MG TOTAL) BY MOUTH DAILY. 4 02/23/20 25 active allopurinol (ZYLOPRIM) 300 MG tablet TAKE 1 TABLET BY MOUTH EVERY DAY active olmesartan (BENICAR) tablet 5 mg TAKE 1 TABLET (5 MG TOTAL) BY MOUTH DAILY. 4 active escitalopram (LEXAPRO) tablet 10 mg TAKE 1 TABLET BY MOUTH EVERY DAY 4 active metoprolol tartrate (LOPRESSOR) 50 MG tablet TAKE 1 TABLET BY MOUTH TWICE A DAY 4 active torsemide (DEMADEX) 20 mg tablet Take 20 mg by mouth every other day. 4 active torsemide (DEMADEX) 20 MG tablet Take 1 tablet (20 mg total) by mouth daily. 4 active scopolamine 1 mg over [address] 1 patch behind 1 ear 4 hours before departure 4 05/13/20 24 completed amoxicillin 500 mg tablet Take 4 tablets 1 hour before procedure 4 05/02/20 24 completed Scopolamine (TRANSDERM-SCOP) 1 MG/3DAYS Place 1 patch behind 1 ear 4 hours before departure 4 active Escitalopram 10mg Tablet 4 active insulin degludec (Tresiba U-100 Insulin) 100 unit/mL solution Inject under the skin. 4 active Metoprolol 4 active Olmesartan Medoxomil 5mg Tablet 4 active TRESIBA 100unit/mL Solution for Injection 4 active olmesartan (BENICAR) tablet 5 mg TAKE 1 TABLET (5 MG TOTAL) BY MOUTH DAILY. 4 active allopurinol (ZYLOPRIM) 300 MG tablet TAKE 1 TABLET BY MOUTH EVERY DAY 4 active escitalopram (LEXAPRO) tablet 10 mg TAKE 1 TABLET BY MOUTH EVERY DAY 4 active metoprolol tartrate (LOPRESSOR) 50 MG tablet TAKE 1 TABLET BY MOUTH TWICE A DAY 4 active atorvastatin (LIPITOR) tablet 10 mg TAKE 1 TABLET BY MOUTH EVERY DAY 4 active olmesartan (BENICAR) 5 mg tablet TAKE 1 TABLET (5 MG TOTAL) BY MOUTH DAILY. 4 06/17/20 25 aborted olmesartan (BENICAR) 5 mg tablet TAKE 1 TABLET (5 MG TOTAL) BY MOUTH DAILY. 4 active allopurinoL (ZYLOPRIM) 300 mg tablet TAKE 1 TABLET BY MOUTH EVERY DAY 4 active allopurinoL (ZYLOPRIM) 300 mg tablet TAKE 1 TABLET BY MOUTH EVERY DAY 4 active metoprolol tartrate (LOPRESSOR) 50 mg tablet TAKE 1 TABLET BY MOUTH TWICE A DAY 4 active metoprolol tartrate (LOPRESSOR) 50 mg tablet TAKE 1 TABLET BY MOUTH TWICE A DAY 4 active escitalopram (LEXAPRO) 10 mg tablet TAKE 1 TABLET BY MOUTH EVERY DAY 4 06/17/20 25 aborted escitalopram (LEXAPRO) 10 mg tablet Take 10 mg by mouth in the morning. 4 active escitalopram (LEXAPRO) 10 mg tablet TAKE 1 TABLET BY MOUTH EVERY DAY 4 active Tresiba FlexTouch U-200 insulin 200 unit/mL (3 mL) subcutaneous pen Inject 40 Units under the skin 2 (two) times a day after meals. Inject before units every morning and 60 units at night 3 active Insulin Degludec (Tresiba FlexTouch) 200 UNIT/ML SOPN Inject 40 Units under the skin 2 (two) times a day after meals. Inject before units every morning and 60 units at night 3 active Insulin Degludec (Tresiba FlexTouch) 200 UNIT/ML SOPN Inject 40 Units under the skin 2 (two) times a day after meals. Inject before units every morning and 60 units at night 3 active Tresiba FlexTouch U-200 200 unit/mL (3 mL) CONCENTRATED injection pen Inject 40 Units under the skin 2 (two) times a day after meals. Inject before units every morning and 60 units at night 3 active Tresiba FlexTouch U-200 200 unit/mL (3 mL) CONCENTRATED injection pen Inject 40 Units under the skin 2 (two) times a day after meals. Inject before units every morning and 60 units at night 3 active atorvastatin (LIPITOR) 10 mg tablet Take 1 tablet (10 mg total) by mouth daily. 3 active atorvastatin (LIPITOR) 10 mg tablet Take 1 tablet (10 mg total) by mouth daily. 3 active metoprolol tartrate (LOPRESSOR) 50 mg tablet Take 50 mg by mouth in the morning and 50 mg before bedtime. 3 active Jardiance 10 mg tablet Take 1 tablet (10 mg total) by mouth daily. 3 01/16/20 23 completed metoprolol tartrate 25 mg tablet TAKE 1 TABLET BY MOUTH TWICE A DAY 3 02/13/20 23 active escitalopram 20 mg tablet Take 1 tablet (20 mg total) by mouth daily. 2 06/13/20 22 completed Jardiance 25 mg tablet Take 25 mg by mouth daily. 2 active Empagliflozin (Jardiance) 25 MG TABS Take 25 mg by mouth daily. 2 active Empagliflozin (Jardiance) 25 MG TABS Take 25 mg by mouth daily. 2 active Jardiance 25 mg tablet Take 25 mg by mouth. 2 active Jardiance 25 mg tablet Take 25 mg by mouth daily. 2 active Jardiance 25 mg tablet Take 25 mg by mouth daily. 2 active semaglutide 0.25 mg or 0.5 mg (2 mg/1.5 mL) subcutaneous pen injector Inject 0.3 mg under the skin once a week. 1 01/16/20 23 completed B-D UF III MINI PEN NEEDLES 31G X 5 MM MISC USE WITH TRESIBA 2 TIMES A DAY DAY 0 active B-D UF III MINI PEN NEEDLES 31G X 5 MM MISC USE WITH TRESIBA 2 TIMES A DAY DAY 0 active hydrochlorothiazide 25 mg tablet TAKE 1/2 TABLET BY MOUTH ONCE A DAY 9 07/31/20 23 completed allopurinoL (ZYLOPRIM) 100 mg tablet Take 100 mg by mouth. 9 active aspirin 81 mg tablet,delayed release Take 1 tablet (81 mg total) by mouth 2 (two) times a day after meals. 7 07/31/20 23 completed acetaminophen (TYLENOL) 325 mg tablet Take 650 mg by mouth. 4 08/09/20 24 aborted acetaminophen 325 mg tablet Take 2 tablets (650 mg total) by mouth. 4 active acetaminophen (TYLENOL) 325 MG tablet Take 2 tablets (650 mg total) by mouth. 4 active acetaminophen (TYLENOL) 325 MG tablet Take 2 tablets (650 mg total) by mouth. 4 active guaifenesin ER 600 mg tablet,extended release Take 2 tablets (1,200 mg total) by mouth 2 (two) times a day. 02/22/20 25 completed No data completed torsemide completed Jardiance completed allopurinol completed atorvastatin completed escitalopram oxalate completed Tresiba FlexTouch U-100 completed metoprolol succinate completed Allergy (diphenhydramine) 25 mg capsule TAKE 1 CAPSULE (25 MG) [address] SCAN active Baqsimi 3 mg/actuation nasal spray 3 MG NARIS, LEFT ONCE,INSTR:E11. 90 DAY USE FOR URGENT HYPOGLYCEIA active BD Ultra-Fine Mini Pen Needle 31 gauge x 3/16 USE WITH TRESIBA 2 TIMES A DAY 90 DAY active bupropion HCl XL 300 mg 24 hr tablet, extended release TAKE 1 TABLET BY MOUTH EVERY MORNING active cholecalciferol (vitamin D3) 125 mcg (5,000 unit) capsule Take 1 capsule (5,000 Units total) by mouth daily. active Clenpiq 10 mg-3.5 gram-12 gram/175 mL oral solution TAKE 1 BOTTLE BY MOUTH 2 (TWO) TIMES A DAY. active diclofenac 1 % topical gel APPLY 2-3 GRAMS TO AREA 3 TIMES active esomeprazole magnesium 20 mg tablet,delayed release Take 1 tablet by mouth daily. active methocarbamol 500 mg tablet TAKE 1 TABLET BY MOUTH THREE TIMES A DAY active methylprednisolone 32 mg tablet TAKE 1 TABLET BY MOUTH EVERY DAY active oxycodone 5 mg tablet PLEASE SEE ATTACHED FOR DETAILED DIRECTIONS active prednisone 50 mg tablet TAKE 1 TABLET (50 MG TOTAL) BY MOUTH AT 13 HOURS, 7 HOURS, AND [address] TO YOUR [address] SCAN active Tresiba FlexTouch U-100 40 units, twice a day active buPROPion XL (FORFIVO XL) 450 mg 24 hr tablet Take 450 mg by mouth in the morning. active cholecalciferol (VITAMIN D-3) 125 mcg (5,000 unit) capsule Take 1 tablet by mouth daily. active cholecalciferol (VITAMIN D-3) 125 mcg (5,000 unit) capsule Take 1 tablet by mouth daily. active Cholecalciferol (VITAMIN D3) 5000 UNITS CAPS Take 1 capsule (5,000 Units total) by mouth daily. active Cholecalciferol (VITAMIN D3) 5000 UNITS CAPS Take 1 capsule (5,000 Units total) by mouth daily. active Esomeprazole Magnesium (NEXIUM 24HR) 20 MG TBEC Take 1 tablet by mouth daily. active Esomeprazole Magnesium (NEXIUM 24HR) 20 MG TBEC Take 1 tablet by mouth daily. active esomeprazole magnesium 20 mg tablet,delayed release (DR/EC) Take 1 tablet by mouth daily. active esomeprazole magnesium 20 mg tablet,delayed release (DR/EC) Take 1 tablet by mouth daily. active guaiFENesin (MUCINEX) 600 MG 12 hr tablet Take 2 tablets (1,200 mg total) by mouth 2 (two) times a day. Takes 1 tab in AM active guaiFENesin (MUCINEX) 600 MG 12 hr tablet Take 2 tablets (1,200 mg total) by mouth 2 (two) times a day. active [place]-3 Fatty Acids (FISH OIL PO) Take 2 tablets by mouth daily. active [place]-3 Fatty Acids (FISH OIL PO) Take 2 tablets by mouth daily. active OMEGA-3 FATTY ACIDS-FISH OIL ORAL active Allergies Allergen Reaction Severity Comment Documented Date Source Statu s SEMAGLUTIDE 06/13/2022 [facility] active SEMAGLUTIDE(0.25 OR 0.5MG-DOS) 06/13/2022 [facility] active OTHER RASH HAIR DYE 01/21/2017 [facility] active AMINOBENZOATE RASH blisters 09/18/2016 [facility] acti ve BENZOCAINE SWELLING benzocaine 09/18/2016 [facility] active BENZOCAINE-TRICLOS AN 02/07/2013 [facility] active IODINE OTHER (SEE COMMENTS)HIVE S iodine 02/07/2013 [facility] active MAGNESIUM 02/07/2013 [facility] active AMINOBENZOIC ACID RASH blisters [facility] ETODOLAC ITCHING [facility] MAGNESIUM [place] E[facility] BETADINE ENS_[facility] COVID-19 VACCINE, MRNA, [id number], LNP-S (MODERNA) OTHER E[facility] Problems Problem Status Onset Date Problem Type Date of Resolution Source Osteoarthritis of knee active ProblemAct [facility] Chronic pain following left total knee arthroplasty active ProblemAct [facility] Tremor active ProblemAct [facility] Obesity active ProblemAct [facility] Pain associated with prosthesis of knee joint active ProblemAct [facility] History of malignant basal cell neoplasm of skin active ProblemAct [facility] Arthritis of right knee joint active ProblemAct [facility] Coronary arteriosclerosis active ProblemAct [facility] Major depressive disorder active ProblemAct [facility] Benign prostatic hyperplasia with outflow obstruction active ProblemAct [facility] Family history of cancer of colon active ProblemAct [facility] Dysequilibrium syndrome active ProblemAct [facility] Primary osteoarthritis of ankle active ProblemAct E[facility] Renal mass active ProblemAct E[facility] Fatigue active ProblemAct [facility] Osteoarthritis of left knee joint active ProblemAct [facility] Cramp active ProblemAct [facility] Onychomycosis due to dermatophyte active ProblemAct [facility] Kidney lesion active ProblemAct [facility] Malaise and fatigue active ProblemAct [facility] Acute abdominal pain active ProblemAct [facility] Bilateral localized swelling of lower legs active ProblemAct [facility] Insulin treated type 2 diabetes mellitus active ProblemAct [facility] Hyperuricemia active ProblemAct [facility] Rib pain active ProblemAct [facility] Essential hypertension active ProblemAct [facility] Backache active ProblemAct E[facility] Basal cell carcinoma of face active ProblemAct [facility] Obstructive sleep apnea syndrome active ProblemAct [facility] Cirrhosis of liver active ProblemAct [facility] Fowler's esophagus with esophagitis active ProblemAct [facility] Nodule of liver active ProblemAct [facility] Tight chest active ProblemAct [facility] Lymphedema of right lower limb active ProblemAct E[facility] Maximus hematuria active ProblemAct [facility] Varicose veins of lower extremity active ProblemAct E[facility] Chronic kidney disease stage 3B active ProblemAct E[facility] Kidney stone active ProblemAct [facility] Gastroesophageal reflux disease active ProblemAct [facility] Unsteady when walking active ProblemAct [facility] Gastrointestinal hemorrhage active ProblemAct [facility] Loss of equilibrium active ProblemAct [facility] Malignant neoplasm of kidney active ProblemAct [facility] History of operative procedure on knee active ProblemAct E[facility] Cervical spondylosis without myelopathy active ProblemAct [facility] Metabolic dysfunction-associated steatotic liver disease active ProblemAct [facility] Hemospermia active ProblemAct [facility] Pure hypercholesterolemia active ProblemAct [facility] Gouty arthritis of multiple sites active ProblemAct [facility] Hyperlipidemia active ProblemAct E[facility] Basal cell carcinoma of face active ProblemAct [facility]NEM[facility] BMI 40.0-44.9, adult ([facility] V24, [facility] V28) active EncounterDiagnosisAct CT_THN EMG Rib pain active ProblemAct [facility] Spondylosis of cervical region without myelopathy or radiculopathy active ProblemAct [facility] Closed fracture of one rib of left side active ProblemAct [facility] Photoaged skin active ProblemAct [facility] Onychomycosis due to dermatophyte active ProblemAct [facility] Metabolic syndrome active EncounterDiagnosisAct CT_[facility]NEMG 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 ([facility] V24, [facility] V28) active EncounterDiagnosisAct CT_[facility]N EMG Hyperuricemia active ProblemAct [facility] Other fatigue active ProblemAct [facility] Primary osteoarthritis of left knee active ProblemAct [facility] Abnormal LFTs active EncounterDiagnosisAct CT_[facility] Chronic gout of multiple sites active ProblemAct [facility] Metabolic dysfunction-associated steatotic liver disease (MASLD) active EncounterDiagnosisAct CT_[facility]N EM[facility] Rib pain active ProblemAct [facility] Essential hypertension, benign active ProblemAct [facility] Primary osteoarthritis of left ankle active ProblemAct [facility] Osteoarthritis of knee active ProblemAct [facility] History of basal cell carcinoma active ProblemAct [facility] Family hx of colon cancer active ProblemAct [facility] Esophageal reflux active ProblemAct [facility] Localized swelling of both lower legs active ProblemAct [facility] Pain due to total left knee replacement active ProblemAct [facility] Primary writing tremor active ProblemAct [facility] History of left knee replacement active ProblemAct [facility] Acute non-recurrent maxillary sinusitis active ProblemAct [facility] Other malaise and fatigue active ProblemAct [facility] Arthritis of right knee active ProblemAct [facility] Tightness in chest active ProblemAct [facility] Family history of colon cancer in father active ProblemAct [facility] Chronic fatigue active ProblemAct [facility] Chronic knee pain after total replacement of left knee joint active ProblemAct [facility] Right renal mass active EncounterDiagnosisAct [facility] Disequilibrium syndrome active EncounterDiagnos isAct [facility] PERIOSTITIS ANKLE/FOOT active ProblemAct ENS_PODCRCT Tinea unguium, onychomycosis active EncounterDiagnosisAct ENS_PODCRCT PLANTAR FLEXED METATARSALS active ProblemAct ENS_PODCRCT Type 2 diabetes mellitus without complications active ProblemAct ENS_PODCRCT Immunizations Vaccine Date Source Lot Number Status zoster vaccine subunit [facility]/24[id number] zoster vaccine subunit 02/24/2025 E[facility] [id number] co mpleted tetanus toxoid, reduced diph theria toxoid, and acellular pertussis vaccine, adsorbed 08/17/2024 ENS_[facility] [id number] completed tetanus toxoid, reduced diph theria toxoid, and acellular pertussis vaccine, adsorbed 08/17/2024 E[facility] [id number] completed zoster vaccine subunit 07/22/2024 ENS_[facility] [id number] co mpleted zoster vaccine subunit 07/22/2024 [facility] [id number] co mpleted Pneumococcal conjugate vacci ne 20-valent (PCV20), polysaccharide [id number] conjugate, adjuvant, preservative free [facility] [id number] comp leted Respiratory syncytial virus (RSV), vaccine, recombinant, protein subunit RSV prefusion F, adjuvant reconstituted, 0.5 mL, preservative free 07/13/20[facility] [id number] completed influenza, high dose seasona l, preservative-free 07/03/[id number] completed influenza, high dose seasona l, preservative-free 07/03/2024 [facility] [id number] completed SARS-COV-2 (COVID-19) vaccin e, mRNA, spike protein, LNP, preservative free, 50 mcg/0.5 mL dose 07/03/2024 [facility] [id number] completed SARS-COV-2 (COVID-19) vaccin e, mRNA, spike protein, LNP, preservative free, 50 mcg/0.5 mL dose 07/03/2024 [facility] [id number] completed SARS-COV-2 (COVID-19) vaccin e, mRNA, spike protein, LNP, preservative free, 50 mcg/0.5 mL dose 07/03/2024 [facility] [id number] completed influenza, injectable, quadr ivalent, contains preservative 06/23/2023 [facility] [id number] completed influenza, injectable, quadr ivalent, contains preservative 06/23/2023 [facility] [id number] completed SARS-COV-2 (COVID-19) vaccin e, mRNA, spike protein, LNP, preservative free, ben-sucrose, 30 mcg/0.3 mL dose 06/23/2023 [facility] [id number] completed SARS-COV-2 (COVID-19) vaccin e, mRNA, spike protein, LNP, preservative free, ben-sucrose, 30 mcg/0.3 mL dose 06/23/2023 [facility] [id number] completed Influenza Quadravalent, 0.5m l (Fluad) 65yo and older 06/23/2023 [facility] [id number] completed Influenza, injectable, Madin [place] Canine Kidney, quadrivalent 07/24/2022 [facility] [id number] completed Influenza, injectable, Madin [place] Canine Kidney, quadrivalent 07/24/2022 E[facility] [id number] completed Influenza, injectable, Madin [place] Canine Kidney, quadrivalent 07/24/2022 [facility] [id number] completed SARS-COV-2 (COVID-19) vaccin e, mRNA, spike protein, LNP, preservative free, 50 mcg/0.5 mL dose 07/23/2022 [facility] [id number] completed SARS-COV-2 (COVID-19) vaccin e, mRNA, spike protein, LNP, preservative free, 50 mcg/0.5 mL dose 07/23/2022 E[facility] [id number] completed SARS-COV-2 (COVID-19) vaccin e, mRNA, spike protein, LNP, preservative free, 100 mcg/0.5mL dose 01/23/2022 E[facility] completed SARS-COV-2 (COVID-19) vaccin e, mRNA, spike protein, LNP, preservative free, 30 mcg/0.3mL dose 12/17/2020 [facility] [id number] completed SARS-COV-2 (COVID-19) vaccin e, mRNA, spike protein, LNP, preservative free, 30 mcg/0.3mL dose 11/21/2020 [facility] [id number] completed Influenza, injectable, quadr ivalent, preservative free 07/26/2019 [facility] [id number] completed Influenza, injectable, quadr ivalent, preservative free 07/26/2019 [facility] [id number] completed influenza, high dose seasona l, preservative-free 10/04/2018 [facility] [id number] completed influenza, high dose seasona l, preservative-free 10/04/2018 [facility] [id number] completed influenza, injectable, quadr ivalent, contains preservative 06/09/2017 [facility] [id number] completed influenza, injectable, quadr ivalent, contains preservative 06/09/2017 [facility] [id number] completed influenza, injectable, quadr ivalent, contains preservative 07/16/2016 [facility] [id number] completed influenza, injectable, quadr ivalent, contains preservative 07/16/2016 [facility] [id number] completed influenza, seasonal, injectable 07/18/2015 [facility] [id number] completed influenza, seasonal, injectable 07/18/2015 [facility] [id number] completed Encounters Encounter Type Encounter Reason Primary Diagnosis Location Date Ambulatory [facility] 08/04/2025 Ambulatory Other specified disorders of kidney and Other specified disorders of kidney and ureter [facility] 08/04/2025 Ambulatory Follow-up Other specified abnormal findings of blood chemistry [facility] 07/04/2025 Ambulatory Follow-up Other specified abnormal findings of blood chemistry [facility] 06/15/2025 Ambulatory Other specified disorders of kidney and Other specified disorders of kidney and ureter [facility] 06/06/2025 Ambulatory [facility] 06/02/2025 Ambulatory [facility] 05/10/2025 Ambulatory Other specified disorders of kidney and ureter Other specified disorders of kidney and [place] [facility] Amb[place] [facility] 04/20/2025 Ambulatory [facility] 04/05/2025 Ambulatory [facility] 03/23/2025 Ambulatory [facility] 03/22/2025 Ambulatory [facility] 03/22/2025 Ambulatory [facility] 02/21/2025 Ambulatory [facility] 11/18/2024 Ambulatory [facility] 10/06/2024 Ambulatory [facility] 09/29/2024 Ambulatory [facility] 09/22/[address] [facility] 09/22/2024 Ambulatory Fracture of one rib, left side, subsequent encounter for fracture with routine healing Fracture of one rib, left side, subsequent encounter for fracture with routine healing [facility] 08/23/2024 Ambulatory Fracture of one rib, left side, initial encounter for closed fracture Fracture of one rib, left side, initial encounter for closed fracture [facility] 08/23/2024 Inpatient FALL- LEFT SIDE RIB PAIN Traumatic pneumothorax, initial encounter [facility] 08/06/2024 Ambulatory [facility] 08/06/2024 Ambulatory Gastro-esophageal reflux disease without esophagitis Gastro-esophageal reflux disease without esophagitis [facility] [place] Ambulatory Bilateral primary osteoarthritis of knee Bilateral primary osteoarthritis of knee [facility] [place] Care Team Organization Name Specialty Phone Email Start Date End [facility] 07/20/2025 [facility] Primary Care 03/2025 [facility] 06/06/2025 [facility] 05/03/2025 [facility] 03/24/2025 [facility] 09[facility]30/2024 [facility] [place]/2024 [facility] 08/06/2024 [facility] 05[facility]18/2024 [facility] 02/28/2023 [facility] 08/05/2022 4 [facility] Primary [facility]
--- OUTSIDE RECORDS SUMMARY | 2025-08-22 10:37 | XMS_ITS | Clinical Summary ---
Author Organization [facility] Address [address] [place] [address] Care Team Providers Care Ekg Monitor Name Role Phone Eugenio Suárez MD Primary Care Provider [phone] Allergies Active Allergy Reactions Criticality Noted Date Comments Benzocaine Other (see comments),Swelling 09/18/2016 benzocaine Benzocaine-Triclosan 02/07/2013 Iodine Hives,Other (see comments) High 3 iodine Magnesium 02/07/2013 Medications allopurinoL (ZYLOPRIM) 100 mg tablet Take 100 mg by mouth. 10/03/2018 Active escitalopram (LEXAPRO) 10 mg tablet Take 10 mg by mouth in the morning. 10/05/2023 Active Jardiance 25 mg tablet Take 25 mg by mouth. 03/06/2022 Active metoprolol tartrate (LOPRESSOR) 50 mg tablet Take 50 mg by mouth in the morning and 50 mg before bedtime. 02/12/2023 Active Ultra-Fine Pen Needle 31 gauge x 3/16 needle USE WITH TRESIBA 1X/DAY E11/9 90 DAY 04/18/2025 Active insulin degludec (Tresiba U-100 Insulin) 100 unit/mL solution Inject under the skin. 02/10/2024 Active torsemide (DEMADEX) 20 mg tablet Take 20 mg by mouth every other day. 03/14/2024 Active buPROPion XL (FORFIVO XL) 450 mg 24 hr tablet Take 450 mg by mouth in the morning. Active diphenhydrAMINE (BenadryL) 25 mg capsule Take 1 capsule (25 mg total) by mouth See admin instructions [address] scan 1 capsule 06/06/2025 Active Encounters Date Type Department Care Team Description 08/16/2025 Results Follow-Up Counts include 234 beds at the [facility] [address] [place] [address] abdomen WO W iv contrast 08/04/2025 3:10 PM EST Office Visit Counts include 234 beds at the [facility] [address] [place] [address] Zhen Fernandez MD Right renal mass (Primary Dx) 08/04/2025 1:58 PM EST - 08/04/2025 11:59 PM EST Hospital Encounter [facility] [address] [place] [address] Zhen Fernandez MD Right renal mass Discharge Disposition: Home or Self Care 06/06/2025 8:30 AM EDT Office Visit [facility] [address] [place] [address] Zhen Fernandez MD Right renal mass (Primary Dx) from Last 3 Months Social History Tobacco Use Types Packs/Day Years Used Date Smoking Tobacco: Never Smokeless Tobacco: Never Tobacco Cessation:Counseling Given: Not Answered Sex and Gender Information Value Date Recorded Sex Assigned at Male 06/06/2025 2:20 PM EDT Legal Sex Male 4:20 PM EDT Gender Identity Male 06/06/2025 2:20 PM EDT Sexual Orientation Straight 06/06/2025 2: 20 PM EDT COVID-19 Exposure Response Date Recorded In the last 10 days, have yo u been in contact with someone who was confirmed or suspected to have Coronavirus/COVID-19? No / Unsure 08/04/2025 1:58 PM EST Last Filed Vital Signs Vital Sign Reading Time Taken Comments Blood Pressure 122/70 06/06/2025 9:30 AM EDT Pulse 70 06/06/2025 9:30 AM EDT Temperature - - Respiratory Rate - - Oxygen Saturation - - Inhaled Oxygen Concentration - - Weight 121 kg (267 lb) 06/06/2025 9:30 AM EDT Height 170.2 cm (5' 7 ) 06/06/2025 9:30 AM EDT Body Mass Index 41.82 06/06/2025 9:30 AM EDT Plan of Treatment Upcoming Encounters Date Type Department Care Team (Late st Contact Info) Description 11/09/2025 2:00 PM EST Appointment [facility] [address] [place] [address] Zhen Fernandez MD [address] [facility] [place], [place] [address] 11/09/2025 2:50 PM EST Office Visit [facility] [address] [place], [place] [address] Zhen Fernandez MD [address] [facility] [address] Health Maintenance Due Date Last Done Comments CT Colonography 1955 Colonoscopy 1955 Colorectal Cancer Screening 1955 Diabetes: Kidney Health Evaluation 1955 FIT-DNA (Cologuard) 1955 FIT 1955 FOBT 1955 Flex Sigmoidoscopy - 5y 1955 HIV Screening 1955 Diabetes: Retinopathy Screening 1971 Hepatitis C Screening 1971 Hepatitis A Vaccines (1 of 2 - Risk 2-dose series) 1972 Medicare Annual Wellness (AWV) 01/20/2025 01/20/2024 COVID-19 Vaccine ( season) 2025 07/03/2024, 06/23/2023, 07/23/2022, Additional history exists Diabetes: Hemoglobin A1C 12/19/2025 06/21/2025, 02/0 05/2024 DTaP,Tdap,and Td Vaccines (2 - Td or Tdap) 08/17/2034 08/17/2024 Pneumococcal Vaccine, 50+ Years Completed 07/20/2024 Zoster Vaccines Completed 02/24/2025, 07/22/2024 Influenza Vaccine Completed 07/13/2025, , 06/23/2023, Additional history exists HPV Vaccines Aged Out No longer eligi ble based on patient's age to complete this topic Meningococcal Vaccine Aged Out No jada fredy eligible based on patient's age to complete this topic Procedures Procedure Name Priority Date/Time Associated Diagnosis Comments CT ABDOMEN WO W IV CONTRAST Routine 08/04/2025 2:40 PM EST Right renal mass ISTAT CREATININE STAT 08/04/2025 2:24 PM EST from Last 3 Months Results * CT abdomen WO W iv contrast (08/04/2025 2:40 PM EST) Anatomical Region Laterality Modality Body, Abdomen Computed Tomogra phy 08/16/2025 12:4 9 PM EST Impressions 08/16/2025 1:06 PM EST Enhancing right lower-pole renal mass measuring 2.2 2.2 2.7 cm; previously 1.9 2.2 2.3 cm in March 2025 and 1.7 1.5 2.4 cm in July 2024, 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 Lesion arises along the margin of a small exophytic cyst with thin peripheral calcification. 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 No abdominal metastatic disease identified. Reminder to Patients and Legally Authorized Representatives: Language in this report is designed for medical communication with other treating physicians and clinical practitioners. Please speak with your provider(s) about any questions or concerns related to the content of this report. Margarita Little, DO AF^0 Reading Location^REMOTE Narrative 08/16/2025 1:[address] ABDOMEN WO W IV CONTRAST 08/04/2025 2:21 PM Patient : 1955 INDICATIONS: Renal mass/cyst, indeterminate N28.89 Other specified disorders of kidney and ureter COMPARISON: Outside CTs dated 08/06/2024 and 04/20/2025 TECHNIQUE: Pre- and post-contrast CT of the abdomen with venous-phase imaging following administration of 350 mg Omnipaque. FINDINGS Lower chest: Unremarkable lung bases. Mild coronary artery calcification. Hepatobiliary / spleen / pancreas: Liver, spleen, bile ducts, and pancreas unremarkable. Post-cholecystectomy. Adrenal glands: Unremarkable. Aorta / vasculature: No aneurysm. Prominent splenic artery calcification. Variant venous anatomy with absence of the suprarenal IVC and an enlarged collateral vein between the right renal and hepatic veins. Lymphatic: No pathologic adenopathy. Scattered small upper retroperitoneal lymph nodes. Kidneys / ureters: Kidneys normal in size, position, and orientation. Punctate nonobstructing bilateral renal calculi. Several small nonenhancing renal cysts. Right renal mass: Enhancing nodule along the medial margin of a 5 mm exophytic lower-pole cyst with thin peripheral calcification. Current (2024): 2.2 2.2 2.7 cm Prior (04/20/2025): 1.9 2.2 2.3 cm Prior (08/06/2024): 1.7 1.5 2.4 cm Bowel / peritoneum: No significant bowel abnormality. No ascites or pneumoperitoneum. Bones: No aggressive osseous lesion. Degenerative changes of the spine. Procedure Note Margarita Little MD - 08/16/2025 CT ABDOMEN WO W IV CONTRAST 08/04/2025 2:21 PM Patient : 1955 INDICATIONS: Renal mass/cyst, indeterminate N28.89 Other specified disorders of kidney and ureter COMPARISON: Outside CTs dated 08/06/2024 and 04/20/2025 TECHNIQUE: Pre- and post-contrast CT of the abdomen with venous-phase imagingfollowing administration of 350 mg Omnipaque. FINDINGS Lower chest: Unremarkable lung bases. Mild coronary artery calcification. Hepatobiliary / spleen / pancreas: Liver, spleen, bile ducts, and pancreas unremarkable.Post-cholecystectomy. Adrenal glands: Unremarkable. Aorta / vasculature: No aneurysm. Prominent splenic artery calcification. Variant venousanatomy with absence of the suprarenal IVC and an enlarged collateral veinbetween the right renal and hepatic veins. Lymphatic: No pathologic adenopathy. Scattered small upper retroperitoneal lymphnodes. Kidneys / ureters: Kidneys normal in size, position, and orientation. Punctate nonobstructingbilateral renal calculi. Several small nonenhancing renal cysts. Right renal mass: Enhancing nodule along the medial margin of a 5 mm exophytic lower-polecyst with thin peripheral calcification. Current (2024): 2.2 2.2 2.7 cm Prior (04/20/2025): 1.9 2.2 2.3 cm Prior (08/06/2024): 1.7 1.5 2.4 cm Bowel / peritoneum: No significant bowel abnormality. No ascites or pneumoperitoneum. Bones: No aggressive osseous lesion. Degenerative changes of the spine. IMPRESSION: Enhancing right lower-pole renal mass measuring 2.2 2.2 2.7 cm;previously 1.9 2.2 2.3 cm in March 2025 and 1.7 1.5 2.4 cm inNov2023, 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 Lesion arisesalong the margin of a small exophytic cyst with thin peripheralcalcification. Punctate nonobstructing bilateral renal calculi and scattered smallnonenhancing cysts Variant venous anatomy with absent suprarenal IVC and collateral venousdrainage. No abdominal metastatic disease identified. Reminder to Patients and Legally Authorized Representatives: Language in this report is designed for medical communication with othertreating physicians and clinical practitioners. Please speak with your provider(s) about any questions or concernsrelated to the content of this report. Margarita Little, AF^0 Reading Location^REMOTE us Zhen Fernandez MD IMG CT PROCEDURES Final Res ult * (ABNORMAL) iSTAT Creatinine (08/04/2025 2:24 PM EST) POCT Creatinine 1.7(H) 0.6 - 1.2 mg/dL 08/04/2025 2:28 PM EST [facility] Sample type, i-STAT VENOUS 08/04/2025 2:28 PM EST [facility] Blood 08/04/2025 2:24 PM EST 08/04/2025 2:28 PM EST Narrative [facility] - 08/04/2025 2:28 PM EST Point of Care Device. Please refer to collection date and time. us Zhen Fernandez MD LAB POCT ORDERABLES - DEVIC E Final Result [facility] [address] [place] [address], from Last 3 Months Insurance MEDICARE PART A & B [place] [id number] Care Teams Ekg Monitor Relationship Specialty Start Date End Date Eugenio Suárez MD [address] [facility] [address] [place] [address] PCP - General Internal Medicine 05/01/25
--- OUTSIDE RECORDS SUMMARY | 2025-08-22 10:37 | XMS_ITS | Encounter Summary ---
Author Organization [facility] Address [address] [place] [address] Care Team Providers Care Wood Tile Installation Helper Name Role Phone Eugenio Suárez MD Primary Care Provider [phone] Encounter Details Date Type Department Care Team (Late st Contact Info) Description 08/16/2025 Results Follow-Up [facility] [address] [place], [place] [address] Zhen Fernandez MD [address] [place] [address] [address] CT abdomen WO W iv contrast Social History Tobacco Use Types Packs/Day Years Used Date Smoking Tobacco: Never Smokeless Tobacco: Never Sex and Gender Information Value Date Recorded [...] No / Unsure 08/04/2025 1:58 PM EST documented as of this encounter Plan of Treatment Upcoming Encounters Date Type Department Care Team (Late st Contact Info) Description 11/09/2025 2:00 PM EST Appointment [facility] [address] [place] [address] Zhen Fernandez MD [address] [facility] [place] [address] 11/09/2025 2:50 PM EST Office Visit [facility] Department of Urology [address] [place], [place] [address] Zhen Fernandez MD [address] [place], [place] [address], [place] [address] documented as of this encounter Visit Diagnoses Not on filedocumented in this encounter Care Teams Wood Tile Installation Helper Relationship Specialty Start Date End Date Eugenio Suárez MD [address] [phone] PCP - General Internal Medicine 05/01/25 documented as of this encounter
--- OUTSIDE RECORDS SUMMARY | 2025-08-22 10:37 | XMS_ITS | Encounter Summary ---
Author Organization [facility] Address [address] [place] [address] Care Team Providers Care Project Developer Name Role Phone Eugenio Suárez MD Primary Care Provider Encounter Details Date Type Department Care Team (Late st Contact Info) Description 07/10/2025 Results Follow-Up [facility] [place] [address] [place] [address] Oc Gohsh, DO [address] [place], [place] [id number] Social History Tobacco Use Types Packs/Day Years [...] on file documented as of this encounter Visit Diagnoses Not on filedocumented in this encounter Care Teams Project Developer Relationship Specialty Start Date End Date Eugenio Suárez MD 3 [facility] [address] [place] [address] PCP - General Internal Medicine 04/18/25 documented as of this encounter
--- OUTSIDE RECORDS SUMMARY | 2025-08-22 10:37 | XMS_ITS | Encounter Summary ---
Author Organization [facility] Address [address] [place] [address] Care Team Providers Care Strategic Account Executive Name Role Phone Eugenio Suárez MD Primary Care Provider [phone] Encounter Details Date Type Department Care Team (Late st Contact Info) Description 05/02/2025 Lab Requisition [facility] Main Lab [address] [place] [address] Charley Thomas, DROP CLIPPER [address] [facility] [address] [place] [address] Gross hematuria Social History Tobacco [...] Procedure Name Priority Date/Time Associated Diagnosis Comments NON-GYNECOLOGIC CYTOLOGY Routine 05/01/2025 12:00 PM EDT Gross hematuria documented in this encounter Results * Non-gynecologic cytology (05/01/2025 12:00 PM EDT) Final Diagnosis Urine, voided (ThinPrep): ATYPICAL UROTHELIAL CELLS (AUC) (see note) The urine specimen contains rare urothelial cells with increased nuclear cytoplasmic ratios, nuclear enlargement, and irregular nuclear membranes. The paucity of these atypical urothelial cells limits further classification. Follow-up is recommended as clinically warranted. Background of numerous rbcs as well as squamous cells and spermatozoa. Note: As reported in the The [employer] System for Reporting Urinary Cytology,*, the diagnostic category of atypical urothelial cells carries 24% to 53% risk of high grade malignancy (ROHM) being found in subsequent resections. *Johanna Engel, et al. The [employer] System for Reporting Urinary Cytology. Lang, 2021. 05/04/2025 11:35 AM EDT [facility] Comment Case reviewed with Dr. Ramesh Dozier. 05/04/2025 11:35 AM EDT [facility] Specimen A Adequacy Satisfactory for evaluation 05/04/2025 11:35 AM EDT [facility] Gross Description A. Urine, Voided, : Received: 20 cc yellow fresh fluid for ThinPrep. 05/04/2025 11:35 AM EDT [facility] Disclaimer The technical components of [place] [address] CLIA # [id number] 05/04/2025 11:35 AM EDT [facility] Urine Urine specimen from urethra / Unknown 05/01/2025 12:00 PM EDT 05/02/2025 6:47 AM EDT us Charley Thomas NP LAB CYTOLOGY ORDERABLES Final Result [facility] [address] [place] [id number], documented in this encounter Visit Diagnoses Diagnosis Gross hematuria documented in this encounter Care Teams Strategic Account Executive Relationship Specialty Start Date End Date Eugenio Suárez MD [address] [place] [address] PCP - General Internal Medicine 04/18/25 documented as of this encounter
--- OUTSIDE RECORDS SUMMARY | 2025-08-22 10:37 | XMS_ITS | Clinical Summary ---
Author Organization [facility] Address [address] [place] [address] Care Team Providers Care Marketing Representative Name Role Phone Unavailable Primary Care Provider Unavailabl e Social History Tobacco Use Types Packs/Day Years Used Date Smoking Tobacco: Never Assessed Sex and Gender Information Value Date Recorded Sex Assigned at Male 03/24/2025 3:27 PM EDT Legal Sex Male 5:52 PM EST Gender Identity Male 03/24/2025 3:27 PM EDT Sexual Orientation Other 03/24/2025 3: 27 PM EDT Plan of Treatment Health Maintenance Due Date Last Done Comments Advance Care Planning 1955 Hepatitis C Virus Screening 1955 DTaP/Tdap/Td Vaccines (1 - Tdap) 1972 Colonoscopy 1998 Pneumococcal Vaccines 50+ (1 of 1 - PCV) 2003 RSV Vaccine 50 years and older and Patients (1 - Risk 50-74 years 1-dose series) 2003 Zoster (Shingles) Vaccine (1 of 2) 2003 Influenza Vaccine 04/28/2025 07/03/2024, , 07/26/2019, Additional history exists COVID-19 Vaccine (2024- season) 2025 07/03/2024, 06/23/2023, 07/23/2022, Additional history exists Hepatitis B Vaccines Aged Out No long er eligible based on patient's age to complete this topic Procedures Procedure Name Priority Date/Time Associated Diagnosis Comments RPR WITH REFLEX TO TITER (MONITOR) Routine 07/10/2025 1:29 PM EDT VITAMIN B12 Routine 07/10/2025 1:29 PM EDT TSH, HIGHLY SENSITIVE Routine 07/10/2025 1:29 PM EDT IMMUNOFIXATION ELECTROPHORESIS, SERUM Routine 07/10/2025 1:29 PM EDT ELECTROPHORESIS, PROTEIN, SERUM (SPEP) Routine 07/10/2025 1:[address] HEAD/BRAIN WITHOUT CONTRAST Routine 06/30/2025 9:14 AM EDT from Last 3 Months Results * RPR with reflex to Titer (Monitor) (07/10/2025 1:29 PM EDT) Pathologist [facility] RPR (Monitor) Reflex Titer NON-REACTI VE NON-REACT TONI [facility] 07/10/2025 1:29 PM EDT 07/10/2025 1:30 PM EDT [employer] - 07/14/2025 4:29 PM EDT FASTING:YES FASTING: YES Ordered by External Provider. [id number] PHYLLIS, External Provider MD LAB BLOOD ORDERABLES Final Result Performing Organization Address [facility] Co de Phone Number [facility] [address] [place] [phone] * IMMUNOFIXATION ELECTROPHORESIS, SERUM (07/10/2025 1:29 PM EDT) Pathologist [facility] Interpretation [facility] Comment: Normal pattern. No monoclonal proteins detected. 07/10/2025 1:29 PM EDT 07/10/2025 1:30 PM EDT [employer] - 07/14/2025 4:29 PM EDT FASTING:YES FASTING: YES Ordered by External Provider. [id number] PHYLLIS, us External Provider MD LAB BLOOD ORDERABLES Final Result Performing Organization Address [facility] Co de Phone Number [facility] [address] [place] [phone] * (ABNORMAL) TSH, HIGHLY SENSITIVE (07/10/2025 1:29 PM EDT) [facility] TSH, Highly Sensitive 4.55(H) 0.40 - 4.50 mIU/L [facility] [employer] [facility] 07/10/2025 1:29 PM EDT 07/10/2025 1:30 PM EDT Narrative [facility] - 07/14/2025 4:29 PM EDT FASTING:YES FASTING: YES Ordered by External Provider. [id number] PHYLLIS, us External Provider LAB BLOOD ORDERABLES Final Result [facility] [address] [place] [address] * Electrophoresis, Protein, Serum (SPEP) (07/10/2025 1:29 PM EDT) [facility] Protein, Total 7.2 6.1 - 8.1 g/dL [facility] [employer] Albumin 3.8 3.8 - 4.8 g/dL [facility] [employer] Alpha 1 Globulin 0.3 0.2 - 0.3 g/dL [facility] [employer] Alpha 2 Globulin 0.8 0.5 - 0.9 g/dL [facility] [employer] Beta 1 Globulin 0.6 0.4 - 0.6 g/dL [facility] Beta 2 Globulin 0.5 0.2 - 0.5 g/dL [facility] Gamma Globulin 1.2 0.8 - 1.7 g/dL [facility] [employer] Interpretation [facility] [employer] Comment: Normal Serum Protein Electrophoresis Pattern. No abnormal protein bands (M-protein) detected. 07/10/2025 1:29 PM EDT 07/10/2025 1:30 PM EDT Narrative [facility] - 07/14/2025 4:29 PM EDT FASTING:YES FASTING: YES Ordered by External Provider. [id number] PHYLLIS, us External Provider MD LAB BLOOD ORDERABLES Final Result Performing Organization Address [facility]/ZIP Co de Phone Number [facility] [address] [place] [address] * VITAMIN B12 (07/10/2025 1:29 PM EDT) Vitamin B12 760 200 - 1,100 pg/mL [facility] 07/10/2025 1:29 PM EDT 07/10/2025 1:30 PM EDT Narrative [facility] - 07/14/2025 4:29 PM EDT FASTING:YES FASTING: YES Ordered by External Provider. [id number], MADELINE MAGANA External Provider LAB BLOOD ORDERABLES Final Result Performing Organization Address [facility] Co de Phone Number [facility] [address] [place] [phone] * CT HEAD/BRAIN WITHOUT CONTRAST (06/30/2025 9:14 AM EDT) Anatomical Region Laterality Modality Other 06/30/2025 9:00 AM EDT 06/30/2025 9:00 AM EDT Narrative 06/30/2025 9:32 AM EDT EXAMINATION: CT HEAD WITHOUT CONTRAST CLINICAL INFORMATION: Normal pressures hydrocephalus COMPARISON: None. TECHNIQUE: Contiguous axial imaging was performed from the skull base to vertex without intravenous contrast. This CT examination was performed using dose optimization techniques as appropriate, variously including the following: * Automated exposure control * Adjustment of mA and/or kV according to patient size (this includes techniques or standardized protocols for targeted exams where dose is matched to indication/reason for exam; i.e. extremities or head) Use of iterative reconstruction technique DLP: 591.85 mGy-cm. FINDINGS: There is no evidence of acute intracranial hemorrhage or territorial infarction. No abnormal mass effect or midline shift is seen. Mild chronic small vessel ischemic changes. Contreras to white matter differentiation is well preserved. No extra-axial fluid collections are identified. No hydrocephalus. Mild cerebral atrophy. There is no abnormal attenuation within the brain parenchyma. The osseous structures and soft tissues are normal. The mastoid air cells and visualized portions of the paranasal sinuses are well aerated. IMPRESSION: No acute intracranial pathology. Electronically signed by: Aung Fountain MD 06/30/2025 09:32 AM EDT RP Thank you for referring your patient to us, Aung Fountain MD [id number] (Electronically Signed - 06/30/2025 09:32) Copy: JERALD MILELR MD [facility] [place] [address] [place] [address] Procedure Note Aung Fountain MD - 06/30/2025 EXAMINATION: CT HEAD WITHOUT CONTRAST CLINICAL INFORMATION: Normal pressures hydrocephalus COMPARISON: None. TECHNIQUE: Contiguous axial imaging was performed from the skull base to vertexwithout intravenous contrast. This CT examination was performed using dose optimization techniques asappropriate, variously including the following: * Automated exposure control * Adjustment of mA and/or kV according to patient size (this includestechniques or standardized protocols for targeted exams where dose ismatched to indication/reason for exam; i.e. extremities or head) Use of iterative reconstruction technique DLP: 591.85 mGy-cm. FINDINGS: There is no evidence of acute intracranial hemorrhage or territorialinfarction. No abnormal mass effect or midline shift is seen. Mild chronicsmall vessel ischemic changes. Contreras to white matter differentiation iswell preserved. No extra-axial fluid collections are identified. No hydrocephalus. Mild cerebral atrophy. There is no abnormal attenuationwithin the brain parenchyma. The osseous structures and soft tissues arenormal. The mastoid air cells and visualized portions of the paranasalsinuses are well aerated. IMPRESSION: No acute intracranial pathology. Electronically signed by: Aung Fountain MD 06/30/2025 09:32 AM EDT RPWorkstation: [id number] Thank you for referring your patient to us, Aung Fountain MD [id number] (Electronically Signed - 06/30/2025 09:32) Copy: JERALD MILLER MD [facility] [place] [address] [facility] [address] [place] [address] Madeline Magana MD IMG LEGACY PROCEDURES Final Result from Last 3 Months Insurance MEDICARE PART A & B
--- OUTSIDE RECORDS SUMMARY | 2025-08-22 10:38 | XMS_ITS | Clinical Summary ---
Author Organization [facility] Address [address] [facility] [address] [place] [address] Phone Care Team Providers Care Marina Manager Name Role Phone Eugenio Suárez MD Primary Care Provider [phone] Allergies Active Allergy Reactions Criticality Noted Date Comments Aminobenzoate (Paba) Rash Low 02/07/2013 blisters Benzocaine Swelling 09/18/2016 [...] Colorectal Cancer Screening: Sigmoidoscopy 2002 Influenza Vaccine (#1) 2025 2, 07/26/2019, 06/09/2017, Additional history exists Hepatitis B Vaccine Aged Out No longe r eligible based on patient's age to complete this topic Insurance Medicare Medicare Care Teams Marina Manager Relationship Specialty Start Date End Date Eugenio Suárez MD PCP - General 10/08/20
--- OUTSIDE RECORDS SUMMARY | 2025-08-22 10:38 | XMS_ITS | Clinical Summary ---
Author Organization [facility] Address [address] [place] [address] Phone Care Team Providers Care Instructional Technology Coach Name Role Phone Eugenio Suárez MD Primary Care Provider [phone] Allergies Active Allergy Reactions Criticality Noted Date [...] Take 1 tablet by mouth daily. Active Tresiba FlexTouch U-200 200 unit/mL (3 mL) CONCENTRATED injection pen Inject 40 Units under the skin 2 (two) times a day after meals. Inject before units every morning and 60 units at night 3 Active metoprolol tartrate (LOPRESSOR) 50 mg tablet TAKE 1 TABLET BY MOUTH TWICE A DAY 4 Active OMEGA-3 FATTY ACIDS-FISH OIL ORAL Active Active Problems Problem Noted Date Diagnosed [...] 08/06/202407/29 Traumatic pneumothorax, initial encounter 08/06/2024 08/09/2024 Encounters Date Type Department Care Team Description 07/10/2025 Results Follow-Up [facility] [address] [place] [address] Oc Ghosh DO 07/04/2025 3:00 PM EDT Office Visit [facility] [address] 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 V24, [facility] V28) from Last 3 Months Immunizations Immunization Administration Dates Next Due Influenza Quadravalent, 0.5m [...] TOTAL KNEE; Surgeon: Federico Deluca MD; Location: [facility]); Service: Orthopedics; Laterality: Left; CHOLECYSTECTOMY 05/02/2016 N/A PROCEDURE:CHOLECYSTECTOMY OPEN;COMMENT:Procedure: CHOLECYSTECTOMY OPEN; Surgeon: Nayely Bennett MD; Location: [facility] MAIN OPERATING ROOM; Service: General; Laterality: N/A; CATARACT EXTRACTION W/ INTRAOCULAR LENS IMPLANT Bilateral PROCEDURE:CATARACT EXTRACTION W/ INTRAOCULAR LENS IMPLANT COLONOSCOPY 06/30/2024 N/A PROCEDURE:COLONOSCOPY;COMMENT :Procedure: COLONOSCOPY; Surgeon: Harsh Bang MD; Location: [facility] ENDOSCOPY; Service: Gastroenterology; Laterality: N/A; UPPER GASTROINTESTINAL ENDOSCOPY 06/30/2024 N/A PROCEDURE:UPPER GASTROINTESTINAL ENDOSCOPY;COMMENT:Procedure: UPPER ENDOSCOPY-EGD; Surgeon: Harsh Bang MD; Location: [facility] END[facility]COPY; Service: Gastroenterology; Laterality: N/A; Medical History Medical History Date Comments PVD (peripheral vascular dis ease) ([facility] V24) DX:PVD (peripheral vascular disease) ([facility]) Vertigo DX:Vertigo;COMME NT:severe 15 yrs ago. Occ [...] Acute pyelonephritis 06/18/2018 DX:Acute py elonephritis Cancer ([facility]/HCC V24, [facility]/HCC V28) DX:Cancer (HCC);COMMENT:Skin of head and neck Cancer ([facility]/HCC V24, 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 receiving [...] Sign Reading Time Taken Comments Blood Pressure 124/78 07/04/2025 3:03 PM EDT Pulse 76 07/04/2025 3:03 PM EDT Temperature 36.4 C (97.6 F) 08/23/2024 10:04 AM EST Respiratory Rate 16 08/23/2024 10:04 AM EST Oxygen Saturation 98% 07/04/2025 3:03 PM EDT Inhaled Oxygen Concentration - - Weight 120 kg (264 lb) 07/04/2025 3:03 PM EDT Height 170.2 cm (5' 7 ) 07/04/2025 3:03 PM EDT Body Mass Index 41.35 07/04/2025 3:03 PM EDT Plan of Treatment Health Maintenance Due Date Last Done Comments Diabetes: Annual Foot Exam 1963 Hepatitis A Vaccines (1 of 2 - Risk 2-dose series) 1972 Hepatitis B Vaccines (1 of 3 - Risk 3-dose series) 2013 Medicare Annual Wellness Visit 09/04/2022 Social Influencers of Health Screening 09/04/2022 Diabetes: Annual Retina Eye Exam 09/18/2023 09/18/2022 Falls Risk Assessment 07/15/2024 07/15/2023 Depression Screening 09/28/2024 07/15/2023 Diabetes: Annual Urine Albumin-Creatinine Ratio (uACR) 10/04/2024 05/07/2023 COVID-19 Vaccine ( season) 2025 07/03/2024, 06/23/2023, 07/23/2022, Additional history exists Influenza Vaccine (#1) 2025 , 06/23/2023, 06/23/2023, Additional history exists Diabetes: Blood Sugar Control Test (HGBA1C) 12/19/2025 06/21/2025, 05/13/2024, 02/05/2024, Additional history exists Diabetes: Annual GFR (Glomerular Filtration Rate) 06/21/2026 06/21/2025, 04/20/2025, 08/08/2024, Additional history exists Hypertension/CHF/CAD Annual BMP Blood Test 06/21/2026 06/21/2025, 04/20/2025, 08/08/2024, Additional history exists Cholesterol Screening (Lipid Panel) 06/21/2030 06/21/2025, 05/07/2023 Colorectal Cancer Screening: Colonoscopy 06/30/2034 06/30/2024 DTaP,Tdap,and Td Vaccines (2 - Td or Tdap) 08/17/2034 08/17/2024 RSV Immunization Adult Patients Completed 07/13/2024 Pneumococcal Vaccine: 50+ Years Completed 07/20/2024 Zoster Vaccines Completed 02/24/2025, 07/22/2024 Hepatitis C Screening Completed 06/21/2025 HIB Vaccines Aged Out No longer eligi [...] Procedure Name Priority Date/Time Associated Diagnosis Comments US ABDOMEN LIMITED Routine 07/10/2025 9: 59 AM EDT 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 (CMS/HCC V24, CMS/HCC V28) HEPATITIS C ANTIBODY WITH REFLEX TO MOLECULAR STUDY Routine 06/21/2025 9:40 AM EDT ALPHA FETOPROTEIN TUMOR MARKER Routine 06/21/2025 9:40 AM EDT Metabolic dysfunction-associate d steatotic liver disease (MASLD) Metabolic syndrome Mixed hyperlipidemia HEPATITIS B SURFACE ANTIGEN WITH REFLEX QUANTITATION Routine 06/21/2025 9:40 AM EDT Metabolic dysfunction-associate d steatotic liver disease (MASLD) Metabolic syndrome Mixed hyperlipidemia HEPATITIS B SURFACE ANTIBODY QUANTITATIVE Routine 06/21/2025 9:40 AM EDT Metabolic dysfunction-associate d steatotic liver disease (MASLD) Metabolic syndrome Mixed hyperlipidemia HEPATITIS B CORE ANTIBODY TOTAL WITH REFLEX TO IGM Routine 06/21/2025 9:40 AM EDT Metabolic dysfunction-associate d steatotic liver disease (MASLD) Metabolic syndrome Mixed hyperlipidemia LIPID PANEL Routine 06/21/2025 9:40 AM EDT Metabolic dysfunction-associate d steatotic liver disease (MASLD) Metabolic syndrome Mixed hyperlipidemia HEMOGLOBIN A1C Routine 06/21/2025 9:40 AM EDT Metabolic dysfunction-associate d steatotic liver disease (MASLD) Metabolic syndrome Mixed hyperlipidemia Type 2 diabetes mellitus without complication, with long-term current use of insulin (CMS/HCC V24, CMS/HCC V28) PROTHROMBIN TIME WITH INR Routine 06/21/2025 9:40 AM EDT Metabolic dysfunction-associate d steatotic liver disease (MASLD) Metabolic syndrome Mixed hyperlipidemia COMPREHENSIVE METABOLIC PANEL Routine 06/21/2025 9:40 AM EDT Metabolic dysfunction-associate d steatotic liver disease (MASLD) Metabolic syndrome Mixed hyperlipidemia DEPRESSION SCREENING Routine 07/15/2023 FALLS RISK ASSESSMENT Routine 07/15/2023 URINE ALBUMIN CREATININE RATIO Routine 05/07/2023 DIABETES EYE EXAM Routine 09/18/2022 from Last 3 Months or Most Recently Relevant to Health Maintenance Results * US Abdomen Limited (07/10/2025 9:59 AM EDT) Anatomical Region Laterality Modality Body Ultrasound us Oc Ghosh DO IMG US PROCEDURES Final Resu lt * Hepatitis C antibody with reflex to molecular study (06/21/2025 9:40 AM EDT) Hepatitis C Antibody NON-REACT TONI NON-REACT TONI [facility] Comment: HCV antibody was non-reactive. There is no laboratory evidence of HCV infection. In most cases, no further action is required. However, if recent HCV exposure is suspected, a test for HCV RNA (test code 77061) is suggested. For additional information please refer to http://education.ThriveHive/faq/HGC62l7 (This link is being provided for informational/ educational purposes only.) 06/21/2025 9:40 AM EDT 06/21/2025 9:41 AM EDT Narrative [facility] ([facility]) - 06/23/2025 11:49 AM EDT FASTING:YES FASTING: YES Oc Ghosh DO LAB BLOOD ORDERABLES Final R esult [facility] ([facility]) [facility] [address] [place] [phone] * Hepatitis B core antibody total with reflex to IgM (06/21/2025 9:40 AM EDT) Hepatitis B Core Ab Total NON-REACT TONI NON-REACT TONI [facility] Comment: For additional information, please refer to http://The New Hive.ThriveHive/faq/SNS352 (This link is being provided for informational/ educational purposes only.) Blood Venous blood specimen / Unknown 06/21/2025 9:40 AM EDT 06/21/2025 9:41 AM EDT Narrative [employer] ([facility]) - 06/23/2025 11:49 AM EDT FASTING:YES FASTING: YES Oc Ghosh DO LAB BLOOD ORDERABLES Final R esult Performing Organization Address [facility] de Phone Number [facility] ProjectTUCSON MEDICAL CENTERWUT ([facility] [address] [place] [phone] * Hepatitis B surface antigen with reflex quantitation (06/21/2025 9:40 AM EDT) [facility] Hepatitis B Surface Antigen NON-REACT TONI NON-REACT TONI [facility] Comment: For additional information, please refer to http://The New Hive.ThriveHive/faq/UEU121 (This link is being provided for informational/ educational purposes only.) Blood Venous blood specimen / Unknown 06/21/2025 9:40 AM EDT 06/21/2025 9:41 AM EDT [facility] ([facility]) - 06/23/2025 11:49 AM EDT FASTING:YES FASTING: YES Oc Crain Ghosh [employer] LAB BLOOD ORDERABLES Final R esult Performing Organization Address [facility] Co de Phone Number [facility] ([facility] [address] [place] [phone] * Alpha fetoprotein tumor marker (06/21/2025 9:40 AM EDT) [facility] Alpha Fetoprotein Tumor Marker 1.7 <6.1 ng/mL [facility] Comment: This test was performed using the Light Extraction Pipe chemiluminescent method. Values obtained from different assay methods cannot be used interchangeably. AFP levels, regardless of value, should not be interpreted as absolute evidence of the presence or absence of disease. Blood Venous blood specimen / Unknown 06/21/2025 9:40 AM EDT 06/21/2025 9:41 AM EDT Narrative [facility] CENTERALFON[facility] ([facility]) - 06/23/2025 11:49 AM EDT FASTING:YES FASTING: YES Hamilton Thorne LAB BLOOD ORDERABLES Final R esult Performing Organization Address [facility] Co de Phone Number [facility]AMES[facility] ([facility]) [facility] [address] [place] [phone] * (ABNORMAL) Hepatitis B surface antibody quantitative (06/21/2025 9:40 AM EDT) Pathologist [facility] Hepatitis B Surface Ab Immunity, Qn <5(L) > OR = 10 mIU/mL [facility] Comment: PATIENT DOES NOT HAVE IMMUNITY TO HEPATITIS B VIRUS. For additional information, please refer to http://education.ThriveHive/faq/IYT666 (This link is being provided for informational/ educational purposes only). Blood Venous blood specimen / Unknown 06/21/2025 9:40 AM EDT 06/21/2025 9:41 AM EDT Narrative [employer] [facility]ITALmomondoTU[facility]ON MED[facility]ENTERWUT ([facility]) - 06/23/2025 11:49 AM EDT FASTING:YES FASTING: YES Hamilton Thorne LAB BLOOD ORDERABLES Final R [employer] Performing Organization Address [facility] Co de Phone Number [facility] ([facility]) [facility] [address] [place] [phone] * Prothrombin time with INR (06/21/2025 9:40 AM EDT) Pathologist [facility] International Normalized Ratio (INR) 1.[address] [facility] 0091 Comment: Reference Range 0.9-1.1 Moderate-intensity Warfarin Therapy 2.0-3.0 Higher-intensity Warfarin Therapy 3.0-4.0 PT 10.4 9.0 - 11.5 sec [facility] [facility] 0091 Comment: For additional information, please refer to http://education.ThriveHive/faq/MDW585 (This link is being provided for informational/ educational purposes only.) Blood Venous blood specimen / Unknown 06/21/2025 9:40 AM EDT 06/21/2025 9:41 AM EDT Narrative [facility]NA SENAAspiring MindsALFONSO ([facility]) - 06/23/2025 11:49 AM EDT FASTING:YES FASTING: YES us Oc Ghosh DO LAB BLOOD ORDERABLES Final R esult Performing Organization Address [facility] Co de Phone Number ANNA [facility] ([facility]) [facility] [address] [place] [address] * (ABNORMAL) Hemoglobin A1c (06/21/2025 9:40 AM EDT) Hemoglobin A1C 6.8(H) <5.7 % [employer] Comment: For someone without known diabetes, a hemoglobin A1c value of 6.5% or greater indicates that they may have diabetes and this should be confirmed with a follow-up test. For someone with known diabetes, a value <7% indicates that their diabetes is well controlled and a value greater than or equal to 7% indicates suboptimal control. A1c targets should be individualized based on duration of diabetes, age, comorbid conditions, and other considerations. Currently, no consensus exists regarding use of hemoglobin A1c for diagnosis of diabetes for children. Blood Venous blood specimen / Unknown 06/21/2025 9:40 AM EDT 06/21/2025 9:41 AM EDT Narrative [facility] ([facility]) - 06/23/2025 11:49 AM EDT FASTING:YES FASTING: YES us Oc Ghosh DO LAB BLOOD ORDERABLES Final R esult [employer] [facility] ([facility]) [facility] [address] [place] [phone] * Lipid panel (06/21/2025 9:40 AM EDT) Cholesterol Total 145 <200 mg/dL [facility] HDL Cholesterol 40 > OR = 40 mg/dL [facility] Triglycerides 94 <150 mg/dL [facility] LDL Cholesterol 86 mg/dL (calc) [facility] Comment: Reference range: <100 Desirable range <100 mg/dL for primary prevention; <70 mg/dL for patients with CHD or diabetic patients with > or = 2 CHD risk factors. LDL-C is now calculated using the Ciera calculation, which is a validated novel method providing better accuracy than the Friedewald equation in the estimation of LDL-C. Oc MOSHER et al. CARMEN. 2013;310(19): 8586-4426 (http://education.Affirmed Networks/faq/LHL858) Chol/HDLC Ratio 3.6 <5.0 (calc) [facility] Non HDL Cholesterol 105 <130 mg/dL (calc) [facility] Comment: For patients with diabetes plus 1 major ASCVD risk factor, treating to a non-HDL-C goal of <100 mg/dL (LDL-C of <70 mg/dL) is considered a therapeutic option. Blood Venous blood specimen / Unknown 06/21/2025 9:40 AM EDT 06/21/2025 9:41 AM EDT Narrative [facility] ([facility]) - 06/23/2025 11:49 AM EDT FASTING:YES FASTING: YES us Oc Ghosh DO LAB BLOOD ORDERABLES Final R esult [facility]) [facility] [address] [place] [phone] * (ABNORMAL) Comprehensive metabolic panel (06/21/2025 9:40 AM EDT) Glucose 130(H) 65 - 99 mg/dL [facility] Comment: Fasting reference interval For someone without known diabetes, a glucose value >125 mg/dL indicates that they may have diabetes and this should be confirmed with a follow-up test. Urea Nitrogen (BUN) 20 7 - 25 mg/dL [facility] Creatinine 1.40(H) 0.70 - 1.28 mg/dL [facility] eGFR 53(L) > OR = 60 mL/min/1. 73m2 [facility] BUN/Creatinine Ratio 14 6 - 22 (calc) [facility] Sodium 138 135 - 146 mmol/L [facility] Potassium 4.4 3.5 - 5.3 mmol/L [facility] Chloride 104 98 - 110 mmol/L [facility] Carbon Dioxide 24 20 - 32 mmol/L [facility] Calcium 8.9 8.6 - 10.3 mg/dL [facility] Total Protein 7.2 6.1 - 8.1 g/dL [facility] Albumin 3.8 3.6 - 5.1 g/dL [facility] Globulin 3.4 1.9 - 3.7 g/dL (calc) [facility] Albumin/Globulin Ratio 1.1 1.0 - 2.5 (calc) [facility] Bilirubin Total 0.5 0.2 - 1.2 mg/dL [facility] Alkaline Phosphatase 128 35 - 144 U/L [facility] Aspartate aminotransferase (AST) 47(H) 10 - 35 U/L [facility] Alanine Aminotransferase (ALT) 39 9 - 46 U/L [facility] Blood Venous blood specimen / Unknown 06/21/2025 9:40 AM EDT 06/21/2025 9:41 AM EDT [facility] ([facility]) - 06/23/2025 11:49 AM EDT FASTING:YES FASTING: YES Oc Ghosh DO LAB BLOOD ORDERABLES Final R esult [facility] ([facility]) [employer] [address] [place] [phone] * Falls Risk Assessment (07/15/2023) [facility] Falls Risk Assessment Abstracted Historical Provider MD HEALTH MAINTENANCE Final Result * Depression Screening (07/15/2023) Pathologist [facility] HM Depression Screening Abstracted Historical Provider MD HEALTH MAINTENANCE Final Result * Urine Albumin Creatinine Ratio (05/07/2023) Pathologist [facility] Urine Albumin Creatinine Ratio Abstracted [facility] Provider MD HEALTH MAINTENANCE Final Result * Diabetes Eye Exam (09/18/2022) [facility] Diabetes: Annual Retina Eye Exam Abstracted [facility] Provider MD HEALTH MAINTENANCE Final Result from Last 3 Months or Most Recently Relevant to Health Maintenance Insurance MEDICARE [facility] MEDICARE [facility] ([facility]) Advance Directives * Full Code - Default [...] currently active code status orders. Care Teams Instructional Technology Coach Relationship Specialty Start Date End Date Eugenio Suárez MD [address] [place] [address] PCP - General Internal Medicine 04/18/25
--- OUTSIDE RECORDS SUMMARY | 2025-08-22 10:38 | XMS_ITS | Clinical Summary ---
Author Organization [address] Address [address] [place] [phone] Care Team Providers Care Double End Sewer Name Role Phone Eugenio Suárez MD Primary Care Provider [phone] Allergies Active Allergy Reactions Criticality Noted Date [...] HIV screening 1966 Hepatitis C screening 1971 Lipid disorder screening 1993 Colon cancer screening, Colonoscopy 1998 Diabetes screening 1998 Shingles vaccine (Shingrix) (2 of 2 - Shingrix (RZV) 2 Dose Standard Series) 09/21/2024 07/22/2024 Influenza vaccine 04/28/2025 07/03/2024, , 07/24/2022, Additional history exists Covid-19 vaccine series ( - season) 2025 07/03/2024, 06/23/2023, 07/23/2022 Tetanus adult (Td q 10,TDAP once) 08/17/2034 08/17/2024 RSV Immunization Completed 07/13/2024 Pneumococcal Vaccine (50+ years) Completed 07/20/2024 Meningococcal B Vaccine Aged Out No l onger eligible based on patient's age to complete this topic Meningococcal Vaccine Aged Out No jada fredy eligible based on patient's age to complete this topic Insurance COMMERCIAL GENERIC COMMERCIAL GENERIC COMMERCIAL GENERIC COMMERCIAL GENERIC Care Teams Double End Sewer Relationship Specialty Start Date End Date Eugenio Suárez MD PCP - General Internal Medicine 01/13/13
--- OUTSIDE RECORDS SUMMARY | 2025-08-22 10:38 | XMS_ITS | Encounter Summary ---
Author Organization [facility] Address [address] [place] [phone] Care Team Providers Care Still Cleaner Name Role Phone Eugenio Suárez MD Primary Care Provider Encounter Details Date Type Department Care Team (Late st Contact Info) Description 07/20/2014 Scanned Document Dermatologic Surgery [address] [address] Su Bennett MD Social History Tobacco Use [...] on filedocumented in this encounter Care Teams Still Cleaner Relationship Specialty Start Date End Date Eugenio Suárez MD PCP - General Internal Medicine 01/13/13 documented as of this encounter
== END 2025-08-22 09:44 | disposition home or self-care (01) ==
LOC: HO.HKAS 09:22
PROVIDERS: Visit Provider Internal Medicine Nephrology
DX: N18.31 Chronic kidney disease, stage 3a (principal); N20.0 Calculus of kidney; I10 Essential (primary) hypertension; D49.519 Neoplasm of unspecified behavior of unspecified kidney
CPT/HCPCS: 99214

== ENCOUNTER → 2025-08-22 09:20 | Outpatient (BNVA) | payer MEDICARE, SELFPAY | PROVIDERS: Visit Provider Internal Medicine Nephrology | DX: N18.31 Chronic kidney disease, stage 3a (principal); N20.0 Calculus of kidney; I10 Essential (primary) hypertension; D49.511 Neoplasm of unspecified behavior of right kidney | CPT/HCPCS: 99212 ==